=== PATIENT | female | born 1950 | race Caucasian/White ===

== ENCOUNTER 2022-09-07 12:35 | Outpatient (CLI) | payer MEDICARE, SELFPAY ==
[2022-09-07 09:26] LABS: Cholesterol* 134 mg/dL (90-199)
[2022-09-07 09:27] LABS: HDL Cholesterol* 63 mg/dL (>=50); LDL Cholesterol Calculated 58 mg/dL (<100); Triglycerides* 67 mg/dL (40-149)
== END 2022-09-07 12:36 | disposition home or self-care (01) ==
PROVIDERS: PCP Family Medicine; Visit Provider Family Medicine
DX: E78.5 Hyperlipidemia, unspecified (principal)
CPT/HCPCS: 80061

== ENCOUNTER 2022-12-05 15:28 | Outpatient (CLI) | payer MEDICARE, SELFPAY | END 2022-12-05 15:29 | disposition home or self-care (01) | LOC: LONREF 12-07 10:39 | PROVIDERS: PCP Family Medicine; Visit Provider Family Medicine | DX: R30.0 Dysuria (principal); N39.0 Urinary tract infection, site not specified | CPT/HCPCS: 87086; 87186 ==

== ENCOUNTER 2023-01-11 07:50 | Outpatient (CLI) | payer MEDICARE, SELFPAY ==
[2023-01-11 17:46] LABS: Chloride* 107 mmol/L (96-114); Sodium* 142 mmol/L (135-149)
[2023-01-11 17:49] LABS: Blood Urea Nitrogen* 17 mg/dL (7-30); Carbon Dioxide* 31 mmol/L (20-32); Cholesterol* 145 mg/dL (90-199); Creatinine* 0.5 mg/dL (0.5-1.5); Estimated Glomerular Filt Rate 100 ml/min
[2023-01-11 17:50] LABS: Calcium* 9.7 mg/dL (8.4-10.6); Glucose* 87 mg/dL (60-115); HDL Cholesterol* 72 mg/dL (>=50); LDL Cholesterol Calculated 58 mg/dL (<100); Triglycerides* 76 mg/dL (40-149)
[2023-01-11 21:49] LABS: Potassium* 3.6 mmol/L (3.6-5.1)
== END 2023-01-11 07:51 | disposition home or self-care (01) ==
PROVIDERS: PCP Family Medicine; Visit Provider Family Medicine
DX: Z01.818 Encounter for other preprocedural examination (principal); E78.5 Hyperlipidemia, unspecified; Z13.29 Encounter for screening for other suspected endocrine disorder; I10 Essential (primary) hypertension; E66.9 Obesity, unspecified
CPT/HCPCS: 80048; 80061; 84443

== ENCOUNTER 2023-01-30 12:18 | Outpatient (CLI) | payer MEDICARE, SELFPAY ==
--- NOTE | 2023-01-30 12:35 | W.ANESCHARGE ---
Anesthesia Charges Start Date/Time Anesthesia Start Date: 01/30/23 Anesthesia Start Time: 13:02 Stop Date/Time Anesthesia Stop Date: 01/30/23 Anesthesia Stop Time: 13:30 Summary Extremes of Age - Over 70 or under 1: MDA
--- NOTE | 2023-01-30 13:34 | W.ANESCHARGE ---
Anesthesia Charges Start Date/Time Anesthesia Start Date: 01/30/23 Anesthesia Start Time: 13:02 Stop Date/Time Anesthesia Stop Date: 01/30/23 Anesthesia Stop Time: 13:30
== END 2023-01-30 12:19 | disposition home or self-care (01) ==
LOC: OP CLINIC 12:19
PROVIDERS: PCP Family Medicine; Visit Provider Surgery
DX: Z12.11 Encounter for screening for malignant neoplasm of colon (principal); K57.30 Diverticulosis of large intestine without perforation or abscess without bleeding; Z86.010 Personal history of colon polyps
CPT/HCPCS: 45385; 811; 812; 99100; J2704

== ENCOUNTER 2023-03-14 17:42 | Outpatient (CLI) | payer MEDICARE, SELFPAY | END 2023-03-14 17:43 | disposition home or self-care (01) | LOC: AMB 03-16 11:49 | PROVIDERS: PCP Family Medicine; Visit Provider Family Medicine | DX: S39.92XA Unspecified injury of lower back, initial encounter (principal); W01.0XXA Fall on same level from slipping, tripping and stumbling without subsequent striking against object, initial encounter; Y92.096 Garden or yard of other non-institutional residence as the place of occurrence of the external cause | CPT/HCPCS: A0425; A0427 ==

== ENCOUNTER 2023-03-14 18:13 | Emergency (ER) | payer MEDICARE, SELFPAY ==
[2023-03-14 18:23] VITALS: BP 157/90; PULSE 82; RESP 16; TEMP 36.6; O2SAT 96; BMI 31.8
--- NOTE | 2023-03-14 18:28 | ED.GENADULT ---
HPI - General Adult General Time Seen by Provider: 18:30 Date Seen: 03/14/23 Chief complaint: Fall/Minor Trauma Stated complaint: Fall Time Seen by Provider: 03/14/23 18:15 Source: patient Mode of arrival: EMS History of Present Illness HPI narrative: Asmita is a 72-year-old female past medical history includes hypertension, asthma, COPD, depression, status post spinal surgery, [facility] for scoliosis presents emerged department by EMS with a fall. Just prior to arrival patient was walking and she tripped over a down spout, she usually uses a walker and did not, she said she walked with her walker this morning, she ended up landing on her left knee both of her elbows, in a superman position, she denies any head injury or loss consciousness. She said she kept her head up. She denies any neck pain, she complains mostly of lower back pain, no popping sensation, she had no incontinence or retention of bowels or urine, pain is lower lumbar area radiates across her back, no radiation down her legs, she denies any paresthesia or weakness in lower extremities. Patient states she had been doing well prior to the fall. She was concerned because she has had back surgery 50 years ago wanted make sure that everything was stable. She received 50 mcg fentanyl IV per EMS. Related Data Home Medications Medication Instructions Recorded Confirmed albuterol sulfate 90 mcg/actuation 2 puff inhalation QID PRN 07/06/22 03/14/23 aerosol inhaler (ProAir HFA) aspirin 81 mg tablet,delayed 81 mg PO QDAY 07/06/22 01/11/23 release (Adult Aspirin Regimen) budesonide-formoterol HFA 160 2 puff inhalation BID 07/06/22 03/14/23 mcg-4.5 mcg/actuation aerosol inhaler (Symbicort) ipratropium 0.5 mg-albuterol 3 mg 3 ml inhalation QID PRN 07/06/22 03/14/23 (2.5 mg base)/3 mL nebulization soln montelukast 10 mg tablet 10 mg PO QPM 07/06/22 03/14/23 (Singulair) calcium carbonate 600 mg calcium 600 mg PO BID 08/09/22 01/11/23 (1,500 mg) tablet multivitamin (Multiple Vitamins 1 tab PO QDAY 08/09/22 01/11/23 tablet) Previous Rx's Medication Instructions Recorded rosuvastatin 5 mg tablet 5 mg PO QDAY #90 tabs 09/13/22 gabapentin 300 mg capsule 600 mg PO TID #180 caps 12/26/22 tramadol 50 mg tablet See Rx Instructions PO QHS PRN 12/26/22 pain #24 tabs hydrochlorothiazide 25 mg tablet See Rx Instructions .Route 01/02/23 .COMPLEX #90 tabs peg 3350-electrolytes 236 240 ml PO Q10M #4,000 mL 01/04/23 gram-22.74 gram-6.74 gram-5.86 gram solution (Golytely) escitalopram oxalate 10 mg tablet 10 mg PO QDAY #30 tabs 01/18/23 (Lexapro) tramadol 50 mg tablet 50 mg PO Q6-8H 3 days #12 tabs 03/14/23 Allergies Allergy/AdvReac Type Severity Reaction Status Date / Time lisinopril Allergy Intermediate Cough Verified 03/14/23 18:34 Bee venom Allergy Intermediate hives and Uncoded 01/11/23 11:02 itching Review of Systems Status of ROS: Reports: 10 or more systems reviewed and unremarkable except as noted in History and below [facility] Medical History Depression (06/25/09) ?F32.A - Depression, unspecified (ICD-10) Pulmonary embolism ?I26.99 - Other pulmonary embolism without acute cor pulmonale (ICD-10) Surgical History (Updated 03/14/23 @ 22:05 by Klaus Barbosa MD) History of endometrial ablation (06/25/09) ?Z98.890 - Other specified postprocedural states (ICD-10) History of surgery on upper extremity (06/25/09) ?Z98.890 - Other specified postprocedural states (ICD-10) History of varicose vein stripping ?Z98.890 - Other specified postprocedural states (ICD-10) Status post cholecystectomy ?Z90.49 - Acquired absence of other specified parts of digestive tract (ICD-10) Status post spinal surgery ?Z98.890 - Other specified postprocedural states (ICD-10) Social History Smoking Status: Never smoker Do you use any of these nicotine containing products: None Second hand tobacco smoke exposure: No How often do you have a drink containing alcohol: never AUDIT-C Alcohol total score: 0 Non-prescribed substance use: denies use Exam Narrative: Exam Narrative: General: Mild distress, laying comfortably. HEENT: Extraocular muscles intact, pupils equal round reactive to light, her head is atraumatic Neck: Nontender cervical spine, full range of motion, supple Lungs: Clear to auscultation bilaterally Heart: Normal sinus rhythm S1-S2 Abdomen: Atraumatic, nontender to palpation all quadrants, bowel sounds present, soft Muscle skeletal: Pelvis stable, internal external rotation of the hips normal, she an abrasion and ecchymosis her left patella, active extension and flexion Right elbow: Superficial linear abrasion, full range of motion extension and flexion. Lower lumbar: Tender to palpation the lower lumbar spine, midline, no step-offs or saddle anesthesia, L4-L5, straight leg raise and crossover 20? negative bilaterally, she has +5 strength lower extremities, CMS intact Neuro: GCS 15, alert awake and oriented x3 Const: Vital Signs, click to edit/add: Vital Signs - 24 hr 03/14/23 18:23 03/14/23 20:29 03/14/23 21:00 Temperature 97.9 F Pulse Rate [Pulse Oximeter] 82 84 Respiratory Rate 16 14 Blood Pressure [Ri ght Upper Arm] 157/90 H 156/95 H Pulse Oximetry 96 98 95 Oxygen Delivery Me thod Room Air Nasal Cannula Oxygen Flow Rate 2 Course Course Hospital Course: 6:40 PM: AIDET performed. Vitals are stable at this time, workup will include IV peripheral, 50 mcg fentanyl IV for pain, will obtain CT lumbar spine without contrast, XR left knee three views, XR left elbow three views. Patient was in agreement. Differential include but not limited to fracture, sprain, contusion, dislocation, vascular damage nerve damage ligament damage tendon damage, as well as life-threatening such as cauda equina epidural abscess. Other considerations are radiculopathy, muscle spasm lumbar fracture as well as all etiologies. Patient denies saddle anesthesia bowel or bladder incontinence or lower extremity weakness. Reevaluation(s) Reevaluation #1: Patient still having pain, additional Dilaudid 0.5 mg IV. XR knee left 3 views: FINDINGS: There is no evidence of acute fracture or dislocation. Moderate medial joint space narrowing with small osteophytes. Small patellofemoral compartment osteophytes. No knee joint effusion. IMPRESSION: No evidence of acute fracture. No knee joint effusion. Dictated by Disha Wetzel MD @ 03/14/2023 7:53:[address] lumbar spine without IV contrast: FINDINGS: Thoracolumbar spinal fusion and coupled iliac screws. Posterior rods with left L2 and bilateral L3, L4, and L5 pedicle screws. L1-L2 and L2-L3 intervertebral spacers. Hardware appears intact. Mature posterior bone graft. Levoconvex curvature of the lumbar spine. No spondylolisthesis. No acute fracture. Left L5-S1 pseudoarticulation. Prevertebral soft tissues and visualized retroperitoneum are unremarkable. Status post cholecystectomy. IMPRESSION: No acute fracture or traumatic subluxation of the lumbar spine. XR left elbow 3 views: MPRESSIONS: 1. There is a nondisplaced intra-articular fracture present in the radial head. 2. A small elbow effusion is present, likely due to hemarthrosis. Patient to be placed in a shoulder sling, she was able to ambulate to and from the bathroom with a walker, pain has been controlled, discussed admitting for observation with PT/OT evaluation or discharge home with close follow-up with primary, patient wishes to be discharged home, patient has been on tramadol in the past, will write her a prescription to use 50-100 mg every 4-6 hours for breakthrough pain, she needs to follow up with her primary care provider over the next 7-10 days. Return precautions given. Time: 20:10 Vital Signs Vital signs: Initial Vital Signs Temperature 97.9 F 03/14/23 18:23 Temperature Source Temporal Artery Scan 03/14/23 18:23 Pulse Rate 82 03/14/23 18:23 Respiratory Rate 16 03/14/23 18:23 Blood Pressure 157/90 H 03/14/23 18:23 Blood Pressure Mean 112 H 03/14/23 18:23 Blood Pressure Position Supine 03/14/23 18:23 Pulse Oximetry 96 03/14/23 18:23 Oxygen Delivery Method Room Air 03/14/23 18:23 Vital Signs Temperature 97.9 F 03/14/23 18:23 Pulse Rate 82 03/14/23 18:23 Respiratory Rate 16 03/14/23 18:23 Blood Pressure 157/90 H 03/14/23 18:23 Pulse Oximetry 96 03/14/23 18:23 Oxygen Delivery Method Room Air 03/14/23 18:23 Temperature 97.9 F 03/14/23 18:23 Pulse Rate 84 03/14/23 20:29 Respiratory Rate 14 03/14/23 20:29 Blood Pressure 156/95 H 03/14/23 20:29 Pulse Oximetry 95 03/14/23 21:00 Oxygen Delivery Method Nasal Cannula 03/14/23 21:00 Oxygen Flow Rate 2 03/14/23 21:00 Discharge Plan Discharge Clinical Impression: Closed fracture of radial head, Lower back injury, Fall from standing, H/O Spinal surgery Patient Disposition: Home, Self-Care Condition: Improved Instructions: Elbow Fracture (ED), Back Pain (ED), Fall Prevention (ED) Additional Instructions: To take 1000 mg Tylenol every 6 hours for pain, for breakthrough pain, Tramadol 50 mg for breakthrough pain if needed. To follow up with Dr. Arzate in the next 3-5 days for ED follow up and recheck. Activity Level: Activity as Tolerated Prescriptions: New tramadol 50 mg tablet 50 mg PO Q6-8H 3 Days Qty: 12 0RF No Action multivitamin [Multiple Vitamins] Tablet 1 tab PO QDAY calcium carbonate 600 mg calcium (1,500 mg) tablet 600 mg PO BID aspirin [Adult Aspirin Regimen] 81 mg tablet,delayed release (DR/EC) 81 mg PO QDAY budesonide-formoterol [Symbicort] 160-4.5 mcg/actuation HFA aerosol inhaler 2 puff inhalation BID ipratropium-albuterol 0.5 mg-3 mg(2.5 mg base)/3 mL solution for nebulization 3 ml inhalation QID PRN montelukast [Singulair] 10 mg tablet 10 mg PO QPM albuterol sulfate [ProAir HFA] 90 mcg/actuation HFA aerosol inhaler 2 puff inhalation QID PRN rosuvastatin 5 mg tablet 5 mg PO QDAY Qty: 90 3RF tramadol 50 mg tablet See Rx Instructions PO QHS PRN (Reason: pain) Qty: 24 0RF Rx Instructions: 50-100 mg orally every day at bedtime PRN; gabapentin 300 mg capsule 600 mg PO TID Qty: 180 11RF hydrochlorothiazide 25 mg tablet See Rx Instructions .ROUTE .COMPLEX Qty: 90 3RF Dose Instruction: TAKE ONE TABLET BY MOUTH ONCE DAILY Rx Instructions: TAKE ONE TABLET BY MOUTH ONCE DAILY peg 3350-electrolytes [Golytely] 236-22.74-6.74 -5.86 gram recon soln 240 ml PO Q10M Qty: 4000 0RF Rx Instructions: until fecal effluent is clear escitalopram oxalate [Lexapro] 10 mg tablet 10 mg PO QDAY Qty: 30 5RF Rx Instructions: Take 1/2 tablet (5mg) daily for 2 days, then take 1 tablet daily Follow Up/Referrals: Waldemar Arzate MD [Primary Care Provider] - Stand Alone Forms: [employer] Info Instructions
--- NOTE | 2023-03-14 18:42 | CRLHL7_ITS ---
For Patients: As a result of the Cures Act, medical imaging exams and procedure reports are released immediately into your electronic medical record. You may view this report before your referring provider. If you have questions, please contact your health care provider. INDICATION: Fall. Knee pain. TECHNIQUE: Three views of the left knee. COMPARISON: None. FINDINGS: There is no evidence of acute fracture or dislocation. Moderate medial joint space narrowing with small osteophytes. Small patellofemoral compartment osteophytes. No knee joint effusion. IMPRESSION: No evidence of acute fracture. No knee joint effusion. Dictated by Disha Wetzel MD @ 03/14/2023 7:53:15 PM (Electronically Signed)
--- NOTE | 2023-03-14 18:42 | CRLHL7_ITS ---
For Patients: As a result of the Century Cures Act, medical imaging exams and procedure reports are released immediately into your electronic medical record. You may view this report before your referring provider. If you have questions, please contact your health care provider. INDICATION: Trauma, fall. TECHNIQUE: CT lumbar spine without contrast. COMPARISON: 10/03/2020. FINDINGS: Thoracolumbar spinal fusion and coupled iliac screws. Posterior rods with left L2 and bilateral L3, L4, and L5 pedicle screws. L1-L2 and L2-L3 intervertebral spacers. Hardware appears intact. Mature posterior bone graft. Levoconvex curvature of the lumbar spine. No spondylolisthesis. No acute fracture. Left L5-S1 pseudoarticulation. Prevertebral soft tissues and visualized retroperitoneum are unremarkable. Status post cholecystectomy. IMPRESSION: No acute fracture or traumatic subluxation of the lumbar spine. Please note that all CT scans at this facility use dose modulation, iterative reconstruction, and/or weight-based dosing when appropriate to reduce radiation dose to as low as reasonably achievable. Dictated by Marcelo Moran MD @ 03/14/2023 8:21:30 PM (Electronically Signed)
[2023-03-14] MEDS: fentaNYL 100 MCG/2 ML inj 50 MCG IVP (18:53)
[2023-03-14] MEDS: HYDROmorphone 0.5 mg/0.5 ml inj IVP (20:14)
[2023-03-14 20:29] VITALS: BP 156/95; PULSE 84; RESP 14; O2SAT 98
--- NOTE | 2023-03-14 20:30 | ED.NURSE ---
O2 dropped to 88-89% following Dilaudid administration. Patient does state pain relief and nausea has also gone. Oxygen applied at 2L NC.
--- NOTE | 2023-03-14 20:59 | CRLHL7_ITS ---
For Patients: As a result of the Cures Act, medical imaging exams and procedure reports are released immediately into your electronic medical record. You may view this report before your referring provider. If you have questions, please contact your health care provider. INDICATION: Elbow injury from fall TECHNIQUE: Elbow radiograph 3 views left COMPARISON: None FINDINGS: Bone: There is a nondisplaced intra-articular fracture present in the radial head. Joint: The elbow joint is unremarkable. A small elbow effusion is present, likely due to hemarthrosis. Soft tissue: Unremarkable. No radiopaque foreign bodies are seen. IMPRESSIONS: 1. There is a nondisplaced intra-articular fracture present in the radial head. 2. A small elbow effusion is present, likely due to hemarthrosis. Dictated by Leoncio Schwab MD @ 03/14/2023 9:31:00 PM Dictated by: Leoncio Schwab MD @ 03/14/2023 21:31:08 (Electronically Signed)
[2023-03-14 21:00] VITALS: O2SAT 95
--- NOTE | 2023-03-14 21:02 | ED.NURSE ---
pt able to get up with minimal 1a, used walker to bathroom and back ind, states she feels better and feels safe to go home, MD Barbosa updated.
== END 2023-03-14 23:10 | disposition home or self-care (01) ==
PROVIDERS: Emergency Provider Student in an Organized Health Care Education/Training Program; PCP Family Medicine
DX: S52.125A Nondisplaced fracture of head of left radius, initial encounter for closed fracture (principal); W01.0XXA Fall on same level from slipping, tripping and stumbling without subsequent striking against object, initial encounter; M54.50 Low back pain, unspecified
CPT/HCPCS: 72131; 73080; 73562; 96374; 96375; 99283; 99284; J1170; J3010

== ENCOUNTER 2023-03-21 11:39 | Emergency (ER) | payer MEDICARE, SELFPAY ==
[2023-03-21 11:43] VITALS: BP 151/81; PULSE 59; RESP 18; TEMP 36.2; O2SAT 96; BMI 31.8
--- NOTE | 2023-03-21 12:03 | CRLHL7_ITS ---
For Patients: As a result of the Cures Act, medical imaging exams and procedure reports are released immediately into your electronic medical record. You may view this report before your referring provider. If you have questions, please contact your health care provider. INDICATION: Swelling after a fall last week COMPARISON: none TECHNIQUE: A compression venous ultrasound exam was performed of both lower extremities using woods scale imaging, color Doppler and spectral Doppler analysis. FINDINGS: Sonographic imaging of the lower extremities demonstrates normal compressibility and color Doppler venous blood flow within the common femoral, deep femoral, and proximal greater saphenous veins. Within the thighs the femoral veins are patent and compressible. At a lower level the popliteal and posterior tibial veins also show normal compressibility and color Doppler venous blood flow. IMPRESSION: Normal venous ultrasound exam. No evidence of deep vein thrombosis within either the left or right lower extremity. Dictated by Fracisco Cid MD @ 03/21/2023 12:56:40 PM (Electronically Signed)
--- NOTE | 2023-03-21 12:04 | ED.GENADULT ---
HPI - General Adult General Chief complaint: Lower Extremity Swelling Stated complaint: Fall, swollen legs Time Seen by Provider: 03/21/23 11:40 History of Present Illness HPI narrative: This 72-year-old female comes in reporting bilateral lower extremity swelling in the last day or so. She states that she fell a week ago and was evaluated for this. She has been taking Zanaflex as needed since then. She does have pain in her low back which is acute on chronic. She does have history of asthma symptoms and did feel some shortness of breath. She does not report any chest pain. She also states that she had a small blood clot during a COVID infection. She is not currently on any anticoagulants. She does have some bruising around her left knee as the fall included landing on this knee. She reports bilateral lower extremity swelling. Related Data Home Medications Medication Instructions Recorded Confirmed albuterol sulfate 90 mcg/actuation 2 puff inhalation QID PRN 07/06/22 03/17/23 aerosol inhaler (ProAir HFA) budesonide-formoterol HFA 160 2 puff inhalation BID 07/06/22 03/17/23 mcg-4.5 mcg/actuation aerosol inhaler (Symbicort) ipratropium 0.5 mg-albuterol 3 mg 3 ml inhalation QID PRN 07/06/22 03/17/23 (2.5 mg base)/3 mL nebulization soln montelukast 10 mg tablet 10 mg PO QPM 07/06/22 03/17/23 (Singulair) calcium carbonate 600 mg calcium 600 mg PO BID 08/09/22 03/17/23 (1,500 mg) tablet multivitamin (Multiple Vitamins 1 tab PO QDAY 08/09/22 03/17/23 tablet) gabapentin 300 mg capsule 500 mg PO TID 03/17/23 03/17/23 tizanidine 4 mg tablet 4 mg PO TID PRN 03/17/23 03/17/23 Previous Rx's Medication Instructions Recorded rosuvastatin 5 mg tablet 5 mg PO QDAY #90 tabs 09/13/22 hydrochlorothiazide 25 mg tablet See Rx Instructions .Route 01/02/23 .COMPLEX #90 tabs peg 3350-electrolytes 236 240 ml PO Q10M #4,000 mL 01/04/23 gram-22.74 gram-6.74 gram-5.86 gram solution (Golytely) escitalopram oxalate 10 mg tablet 10 mg PO QDAY #30 tabs 01/18/23 (Lexapro) tramadol 50 mg tablet 50 mg PO Q6-8H 3 days #12 tabs 03/14/23 furosemide 20 mg tablet (Lasix) 20 mg PO DAILY #7 tabs 03/21/23 ketorolac 10 mg tablet 10 mg PO TID 5 days #15 tabs 03/21/23 Allergies Allergy/AdvReac Type Severity Reaction Status Date / Time lisinopril Allergy Intermediate Cough Verified 03/14/23 18:34 Bee venom Allergy Intermediate hives and Uncoded 01/11/23 11:02 itching Review of Systems Status of ROS: Reports: 10 or more systems reviewed and unremarkable except as noted in History and below Narrative: Constitutional: No fevers, no weight gain or loss. Eyes: No discharge. No vision changes. HENT: No congestion, no sore throat, no ear pain. Cardiovascular: No chest pain, no palpitations. Respiratory: No shortness of breath, no wheezes, no cough. Gastrointestinal: No abdominal pain, no vomiting, no diarrhea. Genitourinary: No dysuria, no hematuria. Musculoskeletal: Normal range of motion. Low back pain. Bilateral lower extremity swelling. Skin: No rashes, no pruritis. Neurological: No dizziness, weakness, sensory change, speech change. Endo/Heme/Allergies: No bruising or bleeding. No polydipsia. Pysch: no suicidality, no anxiety, no insomnia. All other systems reviewed and are negative. [facility] Medical History Depression (06/25/09) ?F32.A - Depression, unspecified (ICD-10) Pulmonary embolism ?I26.99 - Other pulmonary embolism without acute cor pulmonale (ICD-10) Surgical History History of endometrial ablation (06/25/09) ?Z98.890 - Other specified postprocedural states (ICD-10) History of surgery on upper extremity (06/25/09) ?Z98.890 - Other specified postprocedural states (ICD-10) History of varicose vein stripping ?Z98.890 - Other specified postprocedural states (ICD-10) Status post cholecystectomy ?Z90.49 - Acquired absence of other specified parts of digestive tract (ICD-10) Status post spinal surgery ?Z98.890 - Other specified postprocedural states (ICD-10) Social History Smoking Status: Never smoker Do you use any of these nicotine containing products: None Second hand tobacco smoke exposure: No How often do you have a drink containing alcohol: never AUDIT-C Alcohol total score: 0 Non-prescribed substance use: denies use Exam Narrative: Exam Narrative: Constitutional: Well-developed, well-nourished, no acute distress. HEENT: Normocephalic, atraumatic. Neck: Normal range of motion. Nontender. Supple. Heart: Regular. No murmurs. Normal rate. Intact distal pulses. Lungs: Clear to auscultation. No chest discomfort. No wheezes, rhonchi, or rales. Abdomen: Normal bowel sounds. Nontender. No rebound tenderness. Genitalia: Deferred. Back: No midline tenderness. Acute on chronic low back pain. Extremities: Normal range of motion. Mild bruising around the left knee from an injury about a week ago. Mild to moderate lower extremity edema bilaterally. Skin: Intact. No rash. Warm. No erythema or pallor. Neurologic: No altered sensation. No weakness. Alert and oriented. Psychiatric: No suicidality. No anxiety or depression. No insomnia. Nursing notes and vitals signs are reviewed. Const: Vital Signs, click to edit/add: Vital Signs - 24 hr 03/21/23 11:43 03/21/23 13:00 Temperature 97.1 F L Pulse Rate [Right Pulse Oximeter] 59 L 65 Respiratory Rate 18 18 Blood Pressure [Ri ght Upper Arm] 151/81 H 150/84 H Pulse Oximetry 96 99 Oxygen Delivery Me thod Room Air Course Vital Signs Vital signs: Initial Vital Signs Temperature 97.1 F L 03/21/23 11:43 Temperature Source Temporal Artery Scan 03/21/23 11:43 Pulse Rate 59 L 03/21/23 11:43 Respiratory Rate 18 03/21/23 11:43 Blood Pressure 151/81 H 03/21/23 11:43 Blood Pressure Mean 104 03/21/23 11:43 Blood Pressure Position Sitting 03/21/23 11:43 Pulse Oximetry 96 03/21/23 11:43 Oxygen Delivery Method Room Air 03/21/23 11:43 Vital Signs Temperature 97.1 F L 03/21/23 11:43 Pulse Rate 59 L 03/21/23 11:43 Respiratory Rate 18 03/21/23 11:43 Blood Pressure 151/81 H 03/21/23 11:43 Pulse Oximetry 96 03/21/23 11:43 Oxygen Delivery Method Room Air 03/21/23 11:43 Temperature 97.1 F L 03/21/23 11:43 Pulse Rate 65 03/21/23 13:00 Respiratory Rate 18 03/21/23 13:00 Blood Pressure 150/84 H 03/21/23 13:00 Pulse Oximetry 99 03/21/23 13:00 Oxygen Delivery Method Room Air 03/21/23 11:43 Medical Decision Making MDM Narrative Medical decision making narrative: This patient comes in with low back pain that is acute on chronic related to a fall last week. She now reports some bilateral lower extremity swelling. She does have a history of asthma and did have some shortness of breath. She does arrive with normal vital signs. Her blood pressures are a bit elevated. Ultrasound of the lower extremities shows no evidence of deep venous thrombosis. Lab results also returned with reassuring findings. I did order a B type natriuretic peptide whose results are not yet available. The patient is okay to return home. She did receive a prescription for Toradol and a few tablets of Lasix. She does have follow-up appointment with her primary physician in the near future. Lab Data Labs: Lab Results 03/21/23 Range/Units 12:23 WBC 5.24 (4.50-11.00) K/uL RBC 3.97 L (4.00-5.20) m/uL Hgb 12.0 (12.0-16.0) gm/dL Hct 37.5 (33.0-51.0) % MCV 95 (80-100) fL MCH 30 (26-34) pg MCHC 32 (32-36) gm/dL RDW Coeff of Nieves 14.0 (11.5-15.5) % Plt Count 202 (140-440) K/uL Neut % (Auto) 61.8 (42.0-72.0) % Lymph % (Auto) 25.6 (20-44) % Crane % (Auto) 9.9 (0.0-11.0) % Eos % (Auto) 1.7 (0.0-7.0) % Baso % (Auto) 0.8 (0.0-3.0) % Neut # (Auto) 3.24 (1.7-7.0) K/uL Lymph # (Auto) 1.34 (0.90-2.90) K/uL Crane # (Auto) 0.50 (0.00-0.90) K/UL Eos # (Auto) 0.09 (0.00-0.50) K/uL Baso # (Auto) 0.04 (0.00-0.30) K/uL Sodium 139 (135-149) mmol/L Potassium 4.1 (3.6-5.1) mmol/L Chloride 106 (96-114) mmol/L Carbon Dioxide 29 (20-32) mmol/L BUN 17 (7-30) mg/dL Creatinine 0.5 (0.5-1.5) mg/dL Estimated Creat Clear 43.91 Estimated GFR 100 ml/min Glucose 100 (60-115) mg/dL Calcium 9.7 (8.4-10.6) mg/dL Imaging Data Venous US: Radiologist's impression: Normal venous ultrasound exam. No evidence of deep vein thrombosis within either the left or right lower extremity. Discharge Plan Discharge Clinical Impression: Back pain, Pedal edema Patient Disposition: Home, Self-Care Condition: Stable Additional Instructions: Take medications as needed and indicated. Follow up with MD or return if worsening symptoms happen. Prescriptions: New ketorolac 10 mg tablet 10 mg PO TID 5 Days Qty: 15 0RF furosemide [Lasix] 20 mg tablet 20 mg PO DAILY Qty: 7 2RF No Action multivitamin [Multiple Vitamins] Tablet 1 tab PO QDAY calcium carbonate 600 mg calcium (1,500 mg) tablet 600 mg PO BID gabapentin 300 mg capsule 500 mg PO TID tizanidine 4 mg tablet 4 mg PO TID PRN tramadol 50 mg tablet 50 mg PO Q6-8H 3 Days Qty: 12 0RF budesonide-formoterol [Symbicort] 160-4.5 mcg/actuation HFA aerosol inhaler 2 puff inhalation BID ipratropium-albuterol 0.5 mg-3 mg(2.5 mg base)/3 mL solution for nebulization 3 ml inhalation QID PRN montelukast [Singulair] 10 mg tablet 10 mg PO QPM albuterol sulfate [ProAir HFA] 90 mcg/actuation HFA aerosol inhaler 2 puff inhalation QID PRN rosuvastatin 5 mg tablet 5 mg PO QDAY Qty: 90 3RF hydrochlorothiazide 25 mg tablet See Rx Instructions .ROUTE .COMPLEX Qty: 90 3RF Dose Instruction: TAKE ONE TABLET BY MOUTH ONCE DAILY Rx Instructions: TAKE ONE TABLET BY MOUTH ONCE DAILY peg 3350-electrolytes [Golytely] 236-22.74-6.74 -5.86 gram recon soln 240 ml PO Q10M Qty: 4000 0RF Rx Instructions: until fecal effluent is clear escitalopram oxalate [Lexapro] 10 mg tablet 10 mg PO QDAY Qty: 30 5RF Rx Instructions: Take 1/2 tablet (5mg) daily for 2 days, then take 1 tablet daily Follow Up/Referrals: Waldemar Arzate MD [Primary Care Provider] - Stand Alone Forms: [employer] Info Instructions
[2023-03-21 12:38] LABS: Basophils Absolute Auto 0.04 K/uL (0.00-0.30); Basophils Percent Auto 0.8 % (0.0-3.0); Eosinophils Absolute Auto 0.09 K/uL (0.00-0.50); Eosinophils Percent Auto 1.7 % (0.0-7.0); Hematocrit 37.5 % (33.0-51.0); Immature Granulocytes Abs Auto 0.01 K/uL (0.00-0.30); Immature Granulocytes Pct Auto 0.2 %; Lymphocytes Absolute Auto 1.34 K/uL (0.90-2.90); Lymphocytes Percent Auto 25.6 % (20-44); Mean Corpuscular HGB Conc 32 gm/dL (32-36); Mean Corpuscular Hemoglobin 30 pg (26-34); Mean Corpuscular Volume 95 fL (80-100); Monocytes Percent Auto 9.9 % (0.0-11.0); Neutrophils Absolute Auto 3.24 K/uL (1.7-7.0); Neutrophils Percent Auto 61.8 % (42.0-72.0); Platelet Count* 202 K/uL (140-440); Red Blood Count 3.97 m/uL (4.00-5.20); White Blood Count* 5.24 K/uL (4.50-11.00)
[2023-03-21 12:43] LABS: Slide Review Reflex No
[2023-03-21 12:48] LABS: Chloride* 106 mmol/L (96-114); Potassium* 4.1 mmol/L (3.6-5.1); Sodium* 139 mmol/L (135-149)
[2023-03-21 12:51] LABS: Blood Urea Nitrogen* 17 mg/dL (7-30); Carbon Dioxide* 29 mmol/L (20-32); Creatinine* 0.5 mg/dL (0.5-1.5); Est. Creatinine Clearance* 43.91; Estimated Glomerular Filt Rate 100 ml/min
[2023-03-21 12:52] LABS: Calcium* 9.7 mg/dL (8.4-10.6); Glucose* 100 mg/dL (60-115)
--- NOTE | 2023-03-21 12:52 | ED.NURSE ---
pt sitting up on edgre of bed due to back pain. up to br independent with cane.
[2023-03-21 13:00] VITALS: BP 150/84; PULSE 65; RESP 18; O2SAT 99
[2023-03-21 14:42] LABS: NT Pro B Type NatriureticPept* 49 pg/mL
== END 2023-03-21 14:20 | disposition home or self-care (01) ==
LOC: ED 14:04 → ED2 14:06
PROVIDERS: Emergency Provider Emergency Medicine Emergency Medical Services; PCP Family Medicine
DX: M54.9 Dorsalgia, unspecified (principal); R60.9 Edema, unspecified
CPT/HCPCS: 36415; 80048; 83880; 85025; 93970; 99284

== ENCOUNTER 2023-09-14 14:52 | Outpatient (CLI) | payer MEDICARE, SELFPAY ==
--- NOTE | 2023-09-14 14:00 | CRLHL7_ITS ---
For Patients: As a result of the Century Cures Act, medical imaging exams and procedure reports are released immediately into your electronic medical record. You may view this report before your referring provider. If you have questions, please contact your health care provider. DXA BONE MINERAL DENSITY STUDY Reason for exam: Screening. Current height (in): 64. Weight (lb): 189. Menopause age: 48. Ethnicity: White. 1. Have you had a previous hip or vertebral fracture? No. 2. Have you had any fractures during your adult life which did not result from significant trauma (e.g., auto accident)? Yes. 3. Did either of your parents have a hip fracture? Yes. 4. Do you smoke? No. 5. Have you ever taken Glucocorticoids? No. 6. Do you have rheumatoid arthritis? No. 7. Do you have secondary osteoporosis? No. 8. Do you drink 3 or more alcoholic drinks per day? No. 9. Are you being treated for osteoporosis? No. 10. Have you ever taken any of the following medications: Actonel, Evista, Fosamax, Miacalcin, Reclast, Boniva, Forteo, HRT (i.e., estrogen/hormone therapy), Protelos, Prolia, Vitamin D, Calcium, other ??? please specify. ANSWER: Yes, calcium. 11. Do you have any of the following medical conditions: Anorexia or bulimia, asthma or emphysema, end stage renal disease, hyperparathyroidism, any seizure disorders, cancer, inflammatory bowel diseases, hysterectomy, other ??? please specify. ANSWER: Yes, asthma or emphysema. 12. What was your maximum height (inches)? 66. 13. Do you perform weight bearing exercise regularly? No. 14. Do you regularly consume dairy products? Yes. 15. Do you drink caffeinated beverages? No. If female: 16. At what age did your period start? 13. 17. Are you premenopausal? No. 18. How many full-term pregnancies have you had? 4. 19. Have you ever missed your period for more than 6 months in a row (not including or menopause)? No. TECHNIQUE: Bone mineral density study was performed using the [employer]. FINDINGS: The results of the study expressed as bone mineral density (BMD) are as follows: Neck Left: BMD: 0.742 g/cm2. T-score: -1.0. Z-score: 1.0 Right: BMD: 0.775 g/cm2. T-score: -0.7. Z-score: 1.3 Total Left: BMD: 0.951 g/cm2. T-score: 0.1. Z-score: 1.7 Right: BMD: 0.901 g/cm2. T-score: -0.3. Z-score: 1.3 Radius Left 33%: BMD: 0.607 g/cm2. T-score: -1.4. Z-score: 0.9 IMPRESSION: Osteopenia. *Comparison exams done prior to 04/2020 were performed on different unit, [facility]. COMPARISON: Compared with scan of 07/18/2019, the bone mineral density has decreased by 0.7 percent at the hip. Fracisco Cid M.D. Diagnostic Radiologist [email or web address] MELISSA/[email or web address] william/Dictated by: Fracisco Cid MD @ 09/15/2023 6:27:00 AM (Electronically Signed)
== END 2023-09-14 14:53 | disposition home or self-care (01) ==
LOC: RAD 14:53
PROVIDERS: PCP Family Medicine; Visit Provider Family Medicine
DX: Z13.820 Encounter for screening for osteoporosis (principal); M85.89 Other specified disorders of bone density and structure, multiple sites
CPT/HCPCS: 77080

== ENCOUNTER 2023-09-19 19:28 | Outpatient (CLI) | payer MEDICARE, SELFPAY ==
--- NOTE | 2023-09-26 08:19 | W.PM.SLEEP ---
Sleep Study Details Details Interpreting Provider: Rah Date of Sleep Study: 09/19/23 Sleep Study Details: STUDY TYPE:? Home unattended ? BMI:? 31.2 ORDERING PROVIDER:? Rah INDICATION:? Concerns about sleep apnea ? SLEEP SUMMARY:? Monitor time 484.6 minutes RESPIRATORY SUMMARY:? AHI 6.2, supine 6.8, left lateral 10.0, right lateral 3.8 Low oxygen 81 19.9% of study oxygen less than 90% Snoring 1.2% PERIODIC LIMB MOVEMENTS OF SLEEP:? Not recorded during home study CARDIAC:? Range 58-103, mean 73 beats per minute IMPRESSION:? Mild obstructive sleep apnea overall. Significant desaturations. Nearly 20% of the time the patient's oxygen sats below 90%. RECOMMENDATION: Treatment options for the sleep apnea include AutoSet CPAP versus dental appliance versus airway expansion surgery. Once effective therapy is established overnight oximetry should be performed to determine if the patient requires nighttime oxygen and to determine if further cardiopulmonary workup is indicated.
== END 2023-09-19 19:29 | disposition home or self-care (01) ==
PROVIDERS: PCP Family Medicine; Visit Provider Otolaryngology
DX: G47.33 Obstructive sleep apnea (adult) (pediatric) (principal)
CPT/HCPCS: 95806

== ENCOUNTER 2023-10-05 18:20 | Emergency (ER) | payer MEDICARE, SELFPAY ==
[2023-10-05 18:31] VITALS: BP 141/84; PULSE 85; RESP 18; TEMP 36.3; O2SAT 97; BMI 32.1
--- NOTE | 2023-10-05 19:22 | ED_ITS ---
HPI - General Adult General Date Seen: 10/05/23 Chief complaint: Extremity Pain/Injury, Lower Stated complaint: leg pain Time Seen by Provider: 10/05/23 18:53 Source: patient, RN notes reviewed and old records reviewed Mode of arrival: ambulatory Limitations: no limitations History of Present Illness HPI narrative: Patient is a 72-year-old woman who presents for pain control. She has a long history of problems with her back, had Coffman rods many years ago and apparently had a broken kaiser and had surgery for that in 1999. She says she always has back pain to some degree but it is typically manageable. Recently she has been having more problems with sciatic radiation in the right leg. She reports that she has talked to her back surgeon, has had an EMG and saw somebody at a pain clinic for possible spinal stimulator. Her back surgeon apparently thinks the problem may be related to scar tissue. She is our primary doctor last week, she has in the past use tramadol but does not have any at this time, has just been using Tylenol. She notes that the past couple of nights she is not able to get any sleep because when she lays down she gets severe burning pain in her right leg down to her pinky toe. She says that she called her back surgeon today, he gave her the name of the neurosurgeon that he would like her to see for a 2nd opinion on the spinal stimulator, but in the meantime she does not feel like she can continue to just manage with Tylenol. She does not have weakness or true numbness. Has not had fevers, unexpected weight loss etcetera. Related Data Home Medications Medication Instructions Recorded Confirmed albuterol sulfate 90 mcg/actuation 2 puff inhalation QID PRN 07/06/22 09/27/23 aerosol inhaler (ProAir HFA) budesonide-formoterol HFA 160 2 puff inhalation BID 07/06/22 09/27/23 mcg-4.5 mcg/actuation aerosol inhaler (Symbicort) ipratropium 0.5 mg-albuterol 3 mg 3 ml inhalation QID PRN 07/06/22 09/27/23 (2.5 mg base)/3 mL nebulization soln montelukast 10 mg tablet 10 mg PO QPM 07/06/22 09/27/23 (Singulair) calcium carbonate 600 mg calcium 600 mg PO BID 08/09/22 09/27/23 (1,500 mg) tablet multivitamin (Multiple Vitamins 1 tab PO QDAY 08/09/22 09/27/23 tablet) tizanidine 4 mg tablet 4 mg PO TID PRN 03/17/23 09/27/23 aspirin 81 mg tablet,delayed 81 mg PO .THREE TIMES WEEKLY 09/27/23 09/27/23 release (Adult Aspirin Regimen) Previous Rx's Medication Instructions Recorded hydrochlorothiazide 25 mg tablet See Rx Instructions .Route 01/02/23 .COMPLEX #90 tabs escitalopram oxalate 10 mg tablet 10 mg PO QDAY #30 tabs 01/18/23 (Lexapro) ketorolac 10 mg tablet 10 mg PO TID 5 days #15 tabs 03/21/23 methocarbamol 500 mg tablet 500 mg PO TID #30 tabs 03/27/23 tramadol 50 mg tablet 50 mg PO Q6-8H 3 days #30 tabs 04/10/23 gabapentin 300 mg capsule See Rx Instructions PO .ud #240 08/30/23 caps rosuvastatin 5 mg tablet 5 mg PO QDAY #90 tabs 08/30/23 furosemide 20 mg tablet (Lasix) 40 mg (2 x 20 mg) PO DAILY #60 tabs 09/27/23 Allergies Allergy/AdvReac Type Severity Reaction Status Date / Time lisinopril Allergy Intermediate Cough Verified 09/27/23 15:35 Bee venom Allergy Intermediate hives and Uncoded 09/27/23 15:35 itching Review of Systems Status of ROS: Reports: 6 or more systems reviewed and unremarkable except as noted in History and below [facility] Medical History Pulmonary embolism ?I26.99 - Other pulmonary embolism without acute cor pulmonale (ICD-10) Surgical History History of varicose vein stripping ?Z98.890 - Other specified postprocedural states (ICD-10) Status post spinal surgery ?Z98.890 - Other specified postprocedural states (ICD-10) Status post cholecystectomy ?Z90.49 - Acquired absence of other specified parts of digestive tract (ICD- 10) History of surgery on upper extremity (06/25/09) ?Z98.890 - Other specified postprocedural states (ICD-10) History of endometrial ablation (06/25/09) ?Z98.890 - Other specified postprocedural states (ICD-10) Social History Smoking Status: Never smoker Do you use any of these nicotine containing products: None Second hand tobacco smoke exposure: No How often do you have a drink containing alcohol: never AUDIT-C Alcohol total score: 0 Non-prescribed substance use: denies use Exam Narrative: Exam Narrative: Vital signs reviewed In general, alert, nontoxic woman. She walks with a cane. Neurologic: Strength is equal in bilateral lower extremities. Sensation intact to light touch Skin warm dry well perfused. Const: Vital Signs, click to edit/add: Vital Signs - 24 hr 10/05/23 18:31 Temperature 97.3 F L Pulse Rate [Right Pulse Oximeter] 85 Respiratory Rate 18 Blood Pressure [Ri ght Upper Arm] 141/84 H Pulse Oximetry 97 Oxygen Delivery Me thod Room Air Course Course ED Course: I did try to review her on the prescription monitoring database but the database appears to be down. I do not have significant concerns about her in terms of pain medications, looking through clinic records it just does not look like she has had really much in the way of narcotics aside from a tramadol prescription back in March. She has use oxycodone in the past postoperatively in felt it was effective. I am going to give her a small number to use at night, we discussed potential complications of this medication including tolerance and addiction, constipation, dizziness confusion sleepiness etcetera. She will use it with caution. I am also going to put her on some prednisone to see if that provides any relief for her. I have asked her to follow up with a neurosurgeon as recommended. In the meantime, discuss further concerns with Dr. Arzate. Vital Signs Vital signs: Initial Vital Signs Temperature 97.3 F L 10/05/23 18:31 Temperature Source Temporal Artery Scan 10/05/23 18:31 Pulse Rate 85 10/05/23 18:31 Respiratory Rate 18 10/05/23 18:31 Blood Pressure 141/84 H 10/05/23 18:31 Blood Pressure Mean 103 10/05/23 18:31 Blood Pressure Position Sitting 11/16/23 18:31 Pulse Oximetry 97 10/05/23 18:31 Oxygen Delivery Method Room Air 10/05/23 18:31 Vital Signs Temperature 97.3 F L 10/05/23 18:31 Pulse Rate 85 10/05/23 18:31 Respiratory Rate 18 10/05/23 18:31 Blood Pressure 141/84 H 10/05/23 18:31 Pulse Oximetry 97 10/05/23 18:31 Oxygen Delivery Method Room Air 10/05/23 18:31 Temperature 97.3 F L 10/05/23 18:31 Pulse Rate 85 10/05/23 18:31 Respiratory Rate 18 10/05/23 18:31 Blood Pressure 141/84 H 10/05/23 18:31 Pulse Oximetry 97 10/05/23 18:31 Oxygen Delivery Method Room Air 10/05/23 18:31 Discharge Plan Discharge Clinical Impression: Sciatica associated with disorder of lumbar spine Patient Disposition: Home, Self-Care Condition: Stable Instructions: Sciatica (ED) Additional Instructions: Continue your current medications. Add oxycodone if needed for severe uncontrolled pain. Prednisone as follows: 3 tabs daily for 3 days, then 2 tabs daily for 3 days then 1 tab daily for 3 days. Call to schedule follow-up with the neurosurgeon as planned. See Dr. Arzate for ongoing difficulties. Activity Level: No Restrictions Discharge Diet: Regular Prescriptions: No Action multivitamin [Multiple Vitamins] Tablet 1 tab PO QDAY calcium carbonate 600 mg calcium (1,500 mg) tablet 600 mg PO BID tizanidine 4 mg tablet 4 mg PO TID PRN aspirin [Adult Aspirin Regimen] 81 mg tablet,delayed release (DR/EC) 81 mg PO .THREE TIMES WEEKLY furosemide [Lasix] 20 mg tablet 40 mg PO DAILY Qty: 60 3RF ketorolac 10 mg tablet 10 mg PO TID 5 Days Qty: 15 0RF budesonide-formoterol [Symbicort] 160-4.5 mcg/actuation HFA aerosol inhaler 2 puff inhalation BID ipratropium-albuterol 0.5 mg-3 mg(2.5 mg base)/3 mL solution for nebulization 3 ml inhalation QID PRN montelukast [Singulair] 10 mg tablet 10 mg PO QPM albuterol sulfate [ProAir HFA] 90 mcg/actuation HFA aerosol inhaler 2 puff inhalation QID PRN hydrochlorothiazide 25 mg tablet See Rx Instructions .ROUTE .COMPLEX Qty: 90 3RF Dose Instruction: TAKE ONE TABLET BY MOUTH ONCE DAILY Rx Instructions: TAKE ONE TABLET BY MOUTH ONCE DAILY escitalopram oxalate [Lexapro] 10 mg tablet 10 mg PO QDAY Qty: 30 5RF Rx Instructions: Take 1/2 tablet (5mg) daily for 2 days, then take 1 tablet daily methocarbamol 500 mg tablet 500 mg PO TID Qty: 30 2RF tramadol 50 mg tablet 50 mg PO Q6-8H 3 Days Qty: 30 0RF rosuvastatin 5 mg tablet 5 mg PO QDAY Qty: 90 0RF gabapentin 300 mg capsule See Rx Instructions PO .ud Qty: 240 2RF Rx Instructions: 300 mg QAM and QMidday, and 600 mg QHS orally UD; Follow Up/Referrals: Waldemar Arzate MD [Primary Care Provider] - Stand Alone Forms: [facility] Info Instructions
--- OUTSIDE RECORDS SUMMARY | 2023-10-05 19:23 | XMS_ITS | Continuity of Care Document ---
Author Name Unknown Organization [facility] Address [address] [place] [address] Phone Care Team Providers Care Vp Strategic Planning Name Role Phone Abdirahman AMEZCUA, PhD, Jensen Unavailable Unavai lable Allergies, Adverse Reactions, Alerts Substance Reaction Status Criticality BEE STING KIT hives, swelling Active No Informat ion Medications Medication Instructions Dosage Effective Dates (start - stop) Status Comments NORVASC (unknown strength) Not Available - Active QBRELIS (unknown strength) Not Available - Active MONTELUKAST SODIUM (unknown strength) Not Available - Active SYMBICORT (unknown strength) Not Available - Active SPIRIVA HANDIHALER (unknown strength) Not Available - Active MULTIVITAMINS (unknown strength) Not Available - Active CALCIUM CARBONATE/VITAMIN D3 (unknown strength) Not Available - Active PROAIR RESPICLICK (unknown strength) Not Available - Active ATENOLOL (unknown strength) Not Available - No Longer Active Procedures Procedure Date Office/Outpatient Visit,Est, Mod 2017 Office/Outpatient Visit,New, Mod 2016 Advance Directives Directive Yes / No Effective Date File Name No Information Encounters Encounter Description Practice Location Reason(s) For Visit Diagnoses Date Provider Providers Copied on Encounter Office/Outpat ient Visit,Est, Mod [facility], [address], [place], [id number], [place] tel:[phone] [facility] [place] Arthrodesis status Abdirahman Styles. [facility], [address], [place], [address], [place]. tel:[phone] [facility]: [facility] [address] [place], [address]. tel:[phone] Office/Outpat ient Visit,New, Lindy [facility], [address], [place], [id number], [place] tel:[phone] [facility] [place] Other idiopathic scoliosis, thoracic region Abdirahman Styles. [facility], [address], [place], [address], [place]. tel:[phone] Referring Provider: [facility] [address] [place], [address]. tel:[phone] Family History Family Member Type Diagnosis Age At Onset No Information Payers Payer name Insurance type Covered libertarian ID Authoriza tion(s) No Information Social History Type Description Quantity Date Captured Comments Alcohol Use Details Unknown Caffeine Use Details Unknown Tobacco Use Status Never smoked tobacco 2017 Smoking Status Never smoker Sex Female Vital Signs Date / Time: Height Weight BMI Pulse Rate Blood Pressure Temperature Respiratory Rate Body Surface Area Head Circumference Head Circ. Percentile Wt./Kamari. Percentile BMI percentile Pulse Ox Inhaled Ox 2:49 PM 64.00 in 78.562 kg (173.20 lbs) 29.7 3 kg/m eter (2) 90 /min 123/87 mm[Hg] Chief Complaint And Reason For Visit No Information Reason For Referral Reason For Referral No Information History Of Present Illness Encounter Date Complaint History Of Prese nt Illness No Information Functional Status Date Functional Assessmen t No Information Instructions Date Instruction Additional Infor mation Weight Management Education Rela chikis to Overweight Weight management: I nstructed to return to General Practitioner timeframe: 1 Month. Related to Overweight Assessments Type Assessment Date assessment Arthrodesis status Patient Care Teams Name Effective Dates (start - stop) Status Members No Information
== END 2023-10-05 19:24 | disposition home or self-care (01) ==
LOC: ED 19:21
PROVIDERS: Emergency Provider Emergency Medicine; PCP Family Medicine
DX: M54.31 Sciatica, right side (principal)
CPT/HCPCS: 99283; 99284

== ENCOUNTER 2023-10-31 22:22 | Emergency (ER) | payer MEDICARE, SELFPAY ==
--- NOTE | 2023-10-31 | CRLHL7_ITS ---
For Patients: As a result of the Century Cures Act, medical imaging exams and procedure reports are released immediately into your electronic medical record. You may view this report before your referring provider. If you have questions, please contact your health care provider. INDICATION: Right lower extremity hematoma. TECHNIQUE: Right tibia-fibula radiographs, 2 views. COMPARISON: None. FINDINGS: No acute fractures or dislocation. Contour irregularity to the distal fibular head, may be sequela of prior remote trauma. The joint spaces are preserved. The talar dome remains smooth. Mild diffuse soft tissue edema. No suspicious ulcerations or periosteal reaction. IMPRESSION: Mild diffuse soft tissue edema without underlying acute fractures or dislocation. Limited evaluation for soft tissue hematoma. Consider further evaluation with ultrasound or CT if clinically warranted. Dictated by Jamison Christianson MD @ 11/01/2023 12:13:19 AM (Electronically Signed)
[2023-10-31 22:42] VITALS: BP 130/81; PULSE 81; RESP 18; TEMP 36.7; O2SAT 98; BMI 31.8
--- OUTSIDE RECORDS SUMMARY | 2023-10-31 23:39 | XMS_ITS | Continuity of Care Document ---
Author Name Unknown Organization [facility] Address [address] [place] [address] Phone Care Team Providers Care Technician Test Systems Name Role Phone Abdirahman AMEZCUA, PhD, Jensen [...] ient Visit,Est, Mod [facility], [address], [place], [id number], [place] tel:[phone] [facility] [place] Arthrodesis status Abdirahman Styles. [facility], [address], [place], [address], [place]. tel:[phone] [facility]: [facility] [address] [place], [address]. tel:[phone] Office/Outpat ient Visit,New, Lindy [facility], [address], [place], [id number], [place] tel:[phone] [facility] [place] Other idiopathic scoliosis, thoracic region Abdirahman Styles. [facility], [address], [place], [address], [place]. tel:[phone] Referring Provider: [facility] [address] [place], [address]. tel:[phone] Family History Family Member Type Diagnosis Age At Onset No Information Payers Payer name Insurance type Covered green party ID Authoriza tion(s) No Information Social History [...]
--- NOTE | 2023-11-01 00:02 | PC.NURSE ---
Pt out at desk stating that she can go home and get some ice and some tylenol. All cares explaind. Tylenol given as ordered and ice bag provided.
[2023-11-01] MEDS: ACETAMINOPHEN 325 MG TABLET 650 MG PO (00:08)
--- NOTE | 2023-11-01 00:53 | PC.NURSE ---
Written and verbal D/C per MD and RN. Pt ambulate out with with stable gait.
[2023-11-01 01:05] VITALS: BP 125/74; PULSE 79; RESP 18; TEMP 36.7; O2SAT 98
--- NOTE | 2023-11-01 07:20 | ED_ITS ---
HPI - Extremity Injury (Lower) General Date Seen: 11/01/23 Chief Complaint: Extremity Pain/Injury, Lower Stated Complaint: R leg swelling Time Seen by Provider: 10/31/23 23:12 Source: patient and family Mode of arrival: ambulatory Limitations: no limitations History of Present Illness HPI Narrative: This pleasant 72-year-old female presents here with the swelling to her right rosas, this occurred approximately 1 hour ago she just noticed it. She does not remember hitting it or injuring it against anything. She came into the emergency room visit hurts. Is worried that she may have developed a blood clot. She is on aspirin which she takes every other day. Not sure why she takes this, no other history of any other anticoagulants, there is no history of any trauma, she is here with her . MD complaint: leg injury Onset (ago): hour(s) Injury: Left: knee Type of Injury: unknown Place: home Severity: moderate Relieving factors: rest Exacerbating factors: movement Treatments prior to arrival: cold therapy Related Data Home Medications Medication Instructions Recorded Confirmed albuterol sulfate 90 mcg/actuation 2 puff inhalation QID PRN 07/06/22 09/27/23 aerosol inhaler (ProAir HFA) budesonide-formoterol HFA 160 2 puff inhalation BID 07/06/22 09/27/23 mcg-4.5 mcg/actuation aerosol inhaler (Symbicort) ipratropium 0.5 mg-albuterol 3 mg 3 ml inhalation QID PRN 07/06/22 09/27/23 (2.5 mg base)/3 mL nebulization soln montelukast 10 mg tablet 10 mg PO QPM 07/06/22 09/27/23 (Singulair) calcium carbonate 600 mg calcium 600 mg PO BID 08/09/22 09/27/23 (1,500 mg) tablet multivitamin (Multiple Vitamins 1 tab PO QDAY 08/09/22 09/27/23 tablet) tizanidine 4 mg tablet 4 mg PO TID PRN 03/17/23 09/27/23 aspirin 81 mg tablet,delayed 81 mg PO .THREE TIMES WEEKLY 09/27/23 09/27/23 release (Adult Aspirin Regimen) Previous Rx's Medication Instructions Recorded hydrochlorothiazide 25 mg tablet See Rx Instructions .Route 01/02/23 .COMPLEX #90 tabs escitalopram oxalate 10 mg tablet 10 mg PO QDAY #30 tabs 01/18/23 (Lexapro) ketorolac 10 mg tablet 10 mg PO TID 5 days #15 tabs 03/21/23 methocarbamol 500 mg tablet 500 mg PO TID #30 tabs 03/27/23 tramadol 50 mg tablet 50 mg PO Q6-8H 3 days #30 tabs 04/10/23 gabapentin 300 mg capsule See Rx Instructions PO .ud #240 08/30/23 caps rosuvastatin 5 mg tablet 5 mg PO QDAY #90 tabs 08/30/23 furosemide 20 mg tablet (Lasix) 40 mg (2 x 20 mg) PO DAILY #60 tabs 09/27/23 Allergies Allergy/AdvReac Type Severity Reaction Status Date / Time lisinopril Allergy Intermediate Cough Verified 09/27/23 15:35 Bee venom Allergy Intermediate hives and Uncoded 09/27/23 15:35 itching Review of Systems Status of ROS: Reports: 6 or more systems reviewed and unremarkable except as noted in History and below [facility] Medical History Pulmonary embolism ?I26.99 - Other pulmonary embolism without acute cor pulmonale (ICD-10) Surgical History History of varicose vein stripping ?Z98.890 - Other specified postprocedural states (ICD-10) Status post spinal surgery ?Z98.890 - Other specified postprocedural states (ICD-10) Status post cholecystectomy ?Z90.49 - Acquired absence of other specified parts of digestive tract (ICD- 10) History of surgery on upper extremity (06/25/09) ?Z98.890 - Other specified postprocedural states (ICD-10) History of endometrial ablation (06/25/09) ?Z98.890 - Other specified postprocedural states (ICD-10) Social History Smoking Status: Never smoker Do you use any of these nicotine containing products: None Second hand tobacco smoke exposure: No How often do you have a drink containing alcohol: never AUDIT-C Alcohol total score: 0 Non-prescribed substance use: denies use Exam Narrative: Exam Narrative: On examination there is very clearly over her right rosas I hematoma just below her knee, it is approximately 6 x 6 cm. Somewhat deep. Overlying the tibia. She has good range of motion of her right knee. For from full from 0 through the 100?. Is able to walk and bear weight. Distal DP and posterior tibial pulses are normal or sensations normal. I did take the ultrasound, and using the linear transducer. Was able the see that there is a clearly fluid. Leg raise along the bone. There is no Doppler tone to this us no blood flow. Consistent with a hematoma Const: Vital Signs, click to edit/add: Vital Signs - 24 hr 10/31/23 22:42 11/01/23 01:05 11/01/23 01:05 Temperature 98.1 F 98.1 F 98.1 F Pulse Rate [Pulse Oximeter] 81 79 79 Respiratory Rate 18 18 18 Blood Pressure [Ri ght Upper Arm] 130/81 125/74 125/74 Pulse Oximetry 98 98 Oxygen Delivery Me thod Room Air Room Air Documenting provider has reviewed patient's vital signs: yes Course Vital Signs Vital signs: Initial Vital Signs Temperature 98.1 F 10/31/23 22:42 Temperature Source Temporal Artery Scan 10/31/23 22:42 Pulse Rate 81 10/31/23 22:42 Respiratory Rate 18 10/31/23 22:42 Blood Pressure 130/81 10/31/23 22:42 Blood Pressure Mean 97 10/31/23 22:42 Pulse Oximetry 98 10/31/23 22:42 Oxygen Delivery Method Room Air 10/31/23 22:42 Vital Signs Temperature 98.1 F 10/31/23 22:42 Pulse Rate 81 10/31/23 22:42 Respiratory Rate 18 10/31/23 22:42 Blood Pressure 130/81 10/31/23 22:42 Pulse Oximetry 98 10/31/23 22:42 Oxygen Delivery Method Room Air 10/31/23 22:42 Temperature 98.1 F 11/01/23 01:05 Pulse Rate 79 11/01/23 01:05 Respiratory Rate 18 11/01/23 01:05 Blood Pressure 125/74 11/01/23 01:05 Pulse Oximetry 98 11/01/23 01:05 Oxygen Delivery Method Room Air 11/01/23 01:05 Medications Administered Medications: Discontinued Medications Generic Name Dose Route Start Last Admin Trade Name Claudio PRN Reason Stop Dose Admin Acetaminophen 650 mg 11/01/23 00:06 11/01/23 00:08 Acetaminophen 325 Mg Tablet PO 11/01/23 00:07 650 mg ONCE ONE Administration Discharge Plan Discharge Clinical Impression: Hematoma Condition: Stable Instructions: Bone Bruise (ED) Additional Instructions: Home rest use of ice, you may walk on it, but it will hurt, the bruise will track down over your leg and into her foot. We do not do anything for this, unl ess it gets infected, with the fevers chills, icing his best as possible Activity Level: No Restrictions Prescriptions: No Action multivitamin [Multiple Vitamins] Tablet 1 tab PO QDAY calcium carbonate 600 mg calcium (1,500 mg) tablet 600 mg PO BID tizanidine 4 mg tablet 4 mg PO TID PRN aspirin [Adult Aspirin Regimen] 81 mg tablet,delayed release (DR/EC) 81 mg PO .THREE TIMES WEEKLY furosemide [Lasix] 20 mg tablet 40 mg PO DAILY Qty: 60 3RF ketorolac 10 mg tablet 10 mg PO TID 5 Days Qty: 15 0RF budesonide-formoterol [Symbicort] 160-4.5 mcg/actuation HFA aerosol inhaler 2 puff inhalation BID ipratropium-albuterol 0.5 mg-3 mg(2.5 mg base)/3 mL solution for nebulization 3 ml inhalation QID PRN montelukast [Singulair] 10 mg tablet 10 mg PO QPM albuterol sulfate [ProAir HFA] 90 mcg/actuation HFA aerosol inhaler 2 puff inhalation QID PRN hydrochlorothiazide 25 mg tablet See Rx Instructions .ROUTE .COMPLEX Qty: 90 3RF Dose Instruction: TAKE ONE TABLET BY MOUTH ONCE DAILY Rx Instructions: TAKE ONE TABLET BY MOUTH ONCE DAILY escitalopram oxalate [Lexapro] 10 mg tablet 10 mg PO QDAY Qty: 30 5RF Rx Instructions: Take 1/2 tablet (5mg) daily for 2 days, then take 1 tablet daily methocarbamol 500 mg tablet 500 mg PO TID Qty: 30 2RF tramadol 50 mg tablet 50 mg PO Q6-8H 3 Days Qty: 30 0RF rosuvastatin 5 mg tablet 5 mg PO QDAY Qty: 90 0RF gabapentin 300 mg capsule See Rx Instructions PO .ud Qty: 240 2RF Rx Instructions: 300 mg QAM and QMidday, and 600 mg QHS orally UD; Follow Up/Referrals: Waldemar Arzate MD [Primary Care Provider] -
== END 2023-11-01 01:06 | disposition home or self-care (01) ==
PROVIDERS: Emergency Provider Family Medicine; PCP Family Medicine
DX: S80.11XA Contusion of right lower leg, initial encounter (principal); R23.3 Spontaneous ecchymoses
CPT/HCPCS: 73590; 95992; 99282; 99283; A9270

== ENCOUNTER 2023-11-17 08:15 | Outpatient (CLI) | payer MEDICARE, SELFPAY ==
--- OUTSIDE RECORDS SUMMARY | 2023-11-17 08:18 | XMS_ITS | Continuity of Care Document ---
Author Name Unknown Organization [facility] Address [address] [place] [address] Phone Care Team Providers Care Vendor Quality Supervisor Name Role Phone Abdirahman AMEZCUA, PhD, Jensen Unavailable Unavai lable Allergies, Adverse Reactions, Alerts Substance Reaction Status Criticality BEE STING KIT hives, swelling Active No Informat ion Medications Medication Instructions Dosage Effective Dates (start - stop) Status Comments NORVASC (unknown strength) Not Available - Active PROAIR RESPICLICK (unknown strength) Not Available - Active CALCIUM CARBONATE/VITAMIN D3 (unknown strength) Not Available - Active MULTIVITAMINS (unknown strength) Not Available - Active SPIRIVA HANDIHALER (unknown strength) Not Available - Active SYMBICORT (unknown strength) Not Available - Active MONTELUKAST SODIUM (unknown strength) Not Available - Active QBRELIS (unknown strength) Not Available - Active ATENOLOL (unknown strength) Not Available - No Longer Active Procedures Procedure Date Office/Outpatient Visit,Est, Mod 2017 Office/Outpatient Visit,New, Mod 2016 Advance Directives Directive Yes / No Effective Date File Name No Information Encounters Encounter Description Practice Location Reason(s) For Visit Diagnoses Date Provider Providers Copied on Encounter Office/Outpat ient Visit,Est, Mod [facility], [address], [place], [id number], [place] tel:[phone] [facility] [place] Arthrodesis status Abdirahman Styles. [facility], [address], [place], [address], [place]. tel:[phone] [facility] [address] [place], [address]. tel:[phone] Office/Outpat ient Visit,New, Lindy [facility], [address], [place], [id number], [place] tel:[phone] [facility] [place] Other idiopathic scoliosis, thoracic region Abdirahman Styles. [facility], [address], [place], [address], [place]. tel:[phone] [facility] [address] [place], [address]. tel:[phone] Family History Family Member Type Diagnosis Age At Onset No Information Payers Payer name Insurance type Covered constitution party ID Authoriza tion(s) No Information Social [...] Additional Infor mation Weight Management Education Rela hcikis to Overweight Weight management: I nstructed to return to General Practitioner timeframe: 1 Month. Related to Overweight Assessments Type Assessment Date assessment Arthrodesis status Patient Care Teams Name Effective Dates (start - stop) Status Members No Information
[2023-11-17 08:55] LABS: Basophils Absolute Auto 0.02 K/uL (0.00-0.30); Basophils Percent Auto 0.4 % (0.0-3.0); Eosinophils Absolute Auto 0.15 K/uL (0.00-0.50); Eosinophils Percent Auto 2.7 % (0.0-7.0); Hemoglobin* 12.6 gm/dL (12.0-16.0); Lymphocytes Absolute Auto 1.16 K/uL (0.90-2.90); Lymphocytes Percent Auto 20.7 % (20-44); Mean Corpuscular HGB Conc 32 gm/dL (32-36); Mean Corpuscular Hemoglobin 31 pg (26-34); Mean Corpuscular Volume 95 fL (80-100); Monocytes Percent Auto 11.1 % (0.0-11.0); Neutrophils Absolute Auto 3.66 K/uL (1.7-7.0); Neutrophils Percent Auto 65.1 % (42.0-72.0); Platelet Count* 159 K/uL (140-440); Red Blood Count 4.11 m/uL (4.00-5.20); White Blood Count* 5.61 K/uL (4.50-11.00)
[2023-11-17 08:59] LABS: Slide Review Reflex No
[2023-11-17 13:23] LABS: Chloride* 106 mmol/L (96-114); Sodium* 139 mmol/L (135-149)
[2023-11-17 13:26] LABS: Anion Gap -1 mEq/L (7-15); Blood Urea Nitrogen* 15 mg/dL (7-30); Carbon Dioxide* 34 mmol/L (20-32); Cholesterol* 124 mg/dL (90-199); Creatinine* 0.5 mg/dL (0.5-1.5); Estimated Glomerular Filt Rate 100 ml/min; Glucose* 109 mg/dL (60-115)
[2023-11-17 13:27] LABS: Calcium* 9.3 mg/dL (8.4-10.6); HDL Cholesterol* 55 mg/dL (>=50); LDL Cholesterol Calculated 57 mg/dL (<100); Triglycerides* 60 mg/dL (40-149)
== END 2023-11-17 08:16 | disposition home or self-care (01) ==
PROVIDERS: PCP Family Medicine; Visit Provider Family Medicine
DX: R53.83 Other fatigue (principal); E78.5 Hyperlipidemia, unspecified; I10 Essential (primary) hypertension; E66.9 Obesity, unspecified
CPT/HCPCS: 80048; 80061; 84443; 85025

== ENCOUNTER 2024-05-26 19:47 | Outpatient (CLI) | payer MEDICARE, SELFPAY ==
--- OUTSIDE RECORDS SUMMARY | 2024-05-28 18:03 | XMS_ITS | Encounter Summary ---
Author Organization [facility] Address [address] [place] [address]. [place] [address] Care Team Providers Care Acid Retort Operator Name Role Phone Craig Shaikh MD Unavailable [phone] Sarah Woods MD Unavailable [phone] Aaron Arzate MD Primary Care Provider [phone] Fracisco See MD Unavailable [phone] Myron Mcqueen DO Unavailable [phone] Caitie Sheth MD Unavailable Vishal Roy MD Unavailable + [phone] Rebecca Taylor DO Unavailable Craig Ku MD Unavailable [phone] Reason for Visit * Reason Onset Date Comments Call Back 06/07/2023 Encounter Details Date Type Department Care Team (Late st Contact Info) Description 06/07/2023 Telephone [facility] [id number] [place] [address] Sarah Woods MD 420 [facility] [address] [place] [address] Call Back Social History Tobacco Use Types Packs/Day Years Used Date Smoking Tobacco: Never Smokeless Tobacco: Never Alcohol Use Standard Drinks/Week Comments Not Currently 0 (1 standard drink = 0.6 oz pur e alcohol) PHQ-2 Answer Date Recorded PHQ-2 Score 0 03/01/2023 Sex and Gender Information Value Date Recorded Sex Assigned at Not on file Gender Identity 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 Sexual Orientation Not on file documented as of this encounter Miscellaneous Notes * Telephone Encounter - Marsha Mckeon - 06/07/2023 2:41 PM CDT M [facility] Call Center Phone Message May a detailed [...] st Contact Info) Description 01/07/2025 1:30 PM RIVER BOAT CAPTAIN Office Visit [facility] [address] [phone] Sarah Woods MD [address] [address] documented as of this encounter Visit Diagnoses Not on filedocumented in this encounter Care Teams Acid Retort Operator Relationship Specialty Start Date End Date Craig Shaikh MD [address] [place] [address] PCP - Orthopaedics 07/14/20 Aaron Arzate MD [address] [address] PCP - General Family Medicine 10/05/20 Sarah Woods MD [address] [id number] Assigned Pulmonology Provider 09/11/20 Fracisco See MD [address] [facility] [address] [place], [place] [address] Assigned Musculoskeletal Provider 05/07/22 04/10/24 Myron Mcqueen DO [address] [place] [address] Assigned Neuroscience Provider 11/12/22 09/08/23 [place] [address] [facility] [address] Pain Medicine 01/18/23 Vishal Roy MD [address] [place] [place] [address] Pain Medicine 03/09/23 Rebecca Taylor DO RAYUS Assigned Neuroscience Provider 09/09/23 10/20/23 Craig Ku MD [address] [facility] [id number] [place], [place] [address] Assigned Neuroscience Provider 10/21/23 documented as of this encounter
--- OUTSIDE RECORDS SUMMARY | 2024-05-28 18:03 | XMS_ITS | Encounter Summary ---
Author Organization [facility] Address [address] [place] [address]. [place] [address] Care Team Providers Care Jack Spooler Tender Name Role Phone Craig Shaikh MD Unavailable [phone] Sarah Woods MD Unavailable [phone] Aaron Arzate MD Primary Care Provider [phone] Caitie Sheth MD Unavailable Vishal Roy MD Unavailable + [phone] Craig Ku MD Unavailable [phone] Reason for Visit * Reason Comments Medication Refill Encounter Details Date Type Department Care Team (Late st Contact Info) Description 04/26/2024 Refill [facility] [address] [place] [address] Sarah Woods MD [address] [place] [address] [address] [place] [address] Medication Refill Social History Tobacco [...] file Gender Identity Female 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 Sexual Orientation Not on file documented as of this encounter Plan of Treatment Upcoming Encounters Date Type Department Care Team (Late st Contact Info) Description 01/07/2025 1:30 PM OFFSET PRESS OPERATOR HELPER Office Visit [facility] and [address] [phone] Sarah Woods MD [address] [address] documented as of this encounter Visit Diagnoses Diagnosis Moderate persistent asthma without complication Unspecified asthma Dyspnea on exertion Other dyspnea and respiratory abnormality documented in this encounter Care Teams Jack Spooler Tender Relationship Specialty Start Date End Date Craig Shaikh MD [address] [place] [address] PCP - Orthopaedics 07/14/20 Aaron Arzate MD [address] [place] [address]195 PCP - General Family Medicine 10/05/20 Sarah Woods MD [address] [place] [id number] Assigned Pulmonology Provider 09/11/20 [place] [address] [id number] Pain Medicine 01/18/23 Vishal Roy MD [address] [address] Pain Medicine 03/09/23 Craig Ku MD [address] [place], [place] [address], [place] [address] Assigned Neuroscience Provider 10/21/23 documented as of this encounter
--- OUTSIDE RECORDS SUMMARY | 2024-05-28 18:03 | XMS_ITS | Clinical Summary ---
Author Organization [facility] Address [address] [place] [address] Care Team Providers Care Chemical Compounder Name Role Phone Craig Shaikh MD Unavailable [phone] Sarah Woods MD Unavailable [phone] Aaron Arzate MD Primary Care Provider [phone] Caitie Sheth MD Unavailable Vishal Roy MD Unavailable + [phone] Craig Ku MD Unavailable [phone] Allergies Active Allergy Reactions Criticality Noted Date [...] Overview: Added automatically from request for surgery [id number] Foraminal stenosis of lumbar region 07/21/2020 Overview: Added automatically from request for surgery [id number] Elevated coronary artery calcium score 9 Sesamoiditis 02/09/2009 Scoliosis, adolescent acquired 03/23/1964 Encounters Date Type Department Care Team Description 05/28/2024 Telephone [facility] [address] [address] Sarah Woods MD Call Back 04/26/2024 Refill [facility] [address] [address] Sarah Woods MD Medication Refill from Last [...] file Gender Identity Female 10/12/2020 11:38 AM OPERATIONS/DISPATCH Sexual Orientation Not on file Last Filed Vital Signs Vital Sign Reading Time Taken Comments Blood Pressure 143/84 10/16/2023 10:18 AM OPERATIONS/DISPATCH Pulse 76 01/09/2024 3:02 PM OPERATIONS/DISPATCH Temperature 36.8 ??C (98.2 ??F) 09/20/2022 11:15 AM C DT Respiratory Rate 16 10/16/2023 10:18 AM OPERATIONS/DISPATCH Oxygen Saturation 97% 01/09/2024 3:02 PM OPERATIONS/DISPATCH Inhaled Oxygen Concentration - - Weight 83.9 kg (185 lb) 10/16/2023 10:18 AM OPERATIONS/DISPATCH Height 160 cm (5' 3) 10/16/2023 10:18 AM OPERATIONS/DISPATCH Body Mass Index 32.77 10/16/2023 10:18 AM OPERATIONS/DISPATCH Plan of Treatment Upcoming Encounters Date Type Department Care Team (Late st Contact Info) Description 01/07/2025 1:30 PM OPERATIONS/DISPATCH Office Visit [facility] [place] [address] [facility] [place] [address] Sarah Woods MD 420 [facility] [address] [place] [address] Health Maintenance Due Date Last [...] CONTROL TEST 11/02/2022 05/03/2022 GLUCOSE 09/28/2023 09/28/2020, 11/0 06/2020, 09/26/2020, Additional history exists PHQ-2 (once [...] this topic Medical Devices Implanted Type Area Logistics Clerk Device Identifier Shelf Expiration Date Model / Serial / Lot Graft Bone Crush Canc 30ml [id number] Implanted:Qty : 1 on 09/21/2020 by Fracisco See MD at [facility] Bone/Tissu e/Biologic N/A: Spine Lumbar MUSCULOSKELETAL OBANDO 07/13/2023 [id number] / [id number] / Graft Bone Crush Canc 30ml [id number] Implanted:Qty : 1 on 09/21/2020 by Fracisco See MD at [facility] Bone/Tissu e/Biologic N/A: Spine Lumbar MUSCULOSKELETAL OBANDO 07/08/[id number] / [id number] / Imp Scr Medt 5.5/6.0mm Solera 6.5x40mm Ma [id number] Implanted:Qty : 2 on 09/21/2020 by Fracisco See MD at [facility] Metallic Hardware/A nchor N/A: Spine Lumbar [employer] [id number] / / [id number] Imp Scr Medt 5.5/6.0mm Solera 6.5x30mm Ma [id number] Implanted:Qty : 1 on 09/21/2020 by Fracisco See MD at [facility] Metallic Hardware/A nchor N/A: Spine Lumbar [employer] [id number] / / [id number] Imp Scr Medt 5.5/6.0mm Solera 5.5x45mm Ma [id number] Implanted:Qty : 1 on 09/21/2020 by Fracisco See MD at [facility] Metallic Hardware/A nchor N/A: Spine Lumbar [employer] [id number] / / [id number] Imp Scr Medt 5.5/6.0mm Solera 5.5x40mm Ma [id number] Implanted:Qty : 2 on 09/21/2020 by Fracisco See MD at [facility] Metallic Hardware/A nchor N/A: Spine Lumbar [employer] [id number] / / [id number] Imp Connector Medt Torres Closed 5.5mm [id number] Implanted:Qty : 2 on 09/21/2020 by Fracisco See MD at [facility] Metallic Hardware/A nchor N/A: Spine Lumbar [employer] [id number] / / Imp Connector Torres Medt 5.5mm [id number] Implanted:Qty : 2 on 09/21/2020 by Fracisco See MD at [facility] Metallic Hardware/A nchor N/A: Spine Lumbar [employer] [id number] / / Imp Scr Set Torres Medt 5.5 To 5.5mm [id number] Implanted:Qty : 8 on 09/21/2020 by Fracisco See MD at [facility] Metallic Hardware/A nchor N/A: Spine Lumbar [employer] [id number] / / Imp Matias Medt Solera Lined 5.1k062xd [facility] [id number] Implanted:Qty : 2 on 09/21/2020 by Fracisco See MD at [facility] Metallic Hardware/A nchor N/A: Spine Lumbar [employer] [id number] / / Imp Scr Set Medt Solera Break Off 5.5mm Ti [id number] Implanted:Qty : 10 on 09/21/2020 by Fracisco See MD at [facility] Metallic Hardware/A nchor N/A: Spine Lumbar [employer] [id number] / / [id number] Imp Scr Medt 5.5/6.0mm Solera 7.5x45mm Ma [id number] Implanted:Qty : 1 on 09/21/2020 by Fracisco See MD at [facility] Metallic Hardware/A nchor N/A: Spine Lumbar [employer] [id number] / / [id number] Imp Scr Medt 5.5/6.0mm Solera 7.5x35mm Ma [id number] Implanted:Qty : 1 on 09/21/2020 by Fracisco See MD at [facility] Metallic Hardware/A nchor N/A: Spine Lumbar [employer] [id number] / / [id number] Ifuse Implant System 7.0mm X 90 Mm Implant Implanted:Qty : 1 on 09/21/2020 by Fracisco See MD at [facility] Right: Sacrum [employer] 11/04/2024 7090M-90 / / [id number] Description:SI Joint Ifuse Implant System 7.0mm X 90 Mm Implant Implanted:Qty : 1 on 09/21/2020 by Fracisco See MD at [facility] Left: Sacrum [employer] 03/11/2055 7090M-90 / / [id number] Description:SI Joint 9.5 X 100 Ballast Screw Implanted:Qty : 2 on 09/21/2020 by Fracisco See MD at [facility] N/A: Spine Lumbar [id number] / / Explanted Type Area Logistics Clerk Device Identifier Shelf Expiration Date Model / Serial / Lot Imp Scr Medt 5.5/6.0mm Solera 6.5x40mm Ma [id number] Explanted:Qty: 1 on 09/21/2020 by Fracisco See MD at [facility] Metallic Hardware/An chor N/A: Spine Lumbar [employer] [id number] / / [id number] Imp Scr Medt 5.5/6.0mm Solera 7.5x45mm Ma [id number] Explanted:Qty: 1 on 09/21/2020 by Fracisco See MD at [facility] Metallic Hardware/An chor N/A: Spine Lumbar [employer] [id number] / / Imp Scr Medt 5.5/6.0mm Solera 5.5x45mm Ma [id number] Explanted:Qty: 1 on 09/21/2020 by Fracisco See MD at [facility] Metallic Hardware/An chor N/A: Spine Lumbar [employer] [id number] / / [id number] Imp Scr Medt 5.5/6.0mm Solera 5.5x40mm Ma [id number] Explanted:Qty: 1 on 09/21/2020 by Fracisco See MD at [facility] Metallic Hardware/An chor N/A: Spine Lumbar [employer] [id number] / / [id number] Imp Scr Medt 5.5/6.0mm Solera 6.5x30mm Ma [id number] Explanted:Qty: 1 on 09/21/2020 by Fracisco See MD at [facility] Metallic Hardware/An chor N/A: Spine Lumbar [employer] [id number] / / [id number] Posterior Spine Explants Explanted:Qty: 1 on 09/21/2020 by Fracisco See MD at [facility] Bilateral : Spine Lumbar Procedures Procedure Name Priority Date/Time Associated Diagnosis Comments BASIC METABOLIC PANEL Routine 09/28/2020 6:25 AM OPERATIONS/DISPATCH Pneumonia due to 2019 novel coronavirus DX PERIPHERAL WRIST Routine 07/16/2020 1 :09 PM CDT Other specified disorders of bone density and structure, other site MAMMOGRAM - HIM SCAN 07/18/2019 12:00 AM CDT from Last 3 Months or Most Recently Relevant to Health Maintenance Results * (ABNORMAL) Basic metabolic panel (09/28/2020 6:25 AM OPERATIONS/DISPATCH) Sodium 141 133 - 144 mmol/L 09/28/2020 7:05 AM OPERATIONS/DISPATCH [facility] Potassium 4.0 3.4 - 5.3 mmol/L 09/28/2020 7:05 AM OPERATIONS/DISPATCH [facility] Chloride 110(H) 94 - 109 mmol/L 09/28/2020 7:05 AM OPERATIONS/DISPATCH [facility] Carbon Dioxide 25 20 - 32 mmol/L 09/28/2020 7:10 AM OPERATIONS/DISPATCH [facility] Anion Gap 6 3 - 14 mmol/L 09/28/2020 7:10 AM OPERATIONS/DISPATCH [facility] Glucose 116(H) 70 - 99 mg/dL 09/28/2020 7:10 AM OPERATIONS/DISPATCH [facility] Urea Nitrogen 11 7 - 30 mg/dL 09/28/2020 7:10 AM OPERATIONS/DISPATCH [facility] Creatinine 0.53 0.52 - 1.04 mg/dL 09/28/2020 7:10 AM OPERATIONS/DISPATCH [facility] GFR Estimate >90 >60 mL/min/{1. 73_m2} 09/28/2020 7:10 AM OPERATIONS/DISPATCH [facility] Comment: Non GFR Calc Starting 11/06/2018, serum creatinine based estimated GFR (eGFR) will be calculated using the Chronic Kidney Disease Epidemiology Collaboration (CKD-EPI) equation. GFR Estimate If Black >90 >60 mL/min/{1. 73_m2} 09/28/2020 7:10 AM OPERATIONS/DISPATCH [facility] Comment: GFR Calc Starting 11/06/2018, serum creatinine based estimated GFR (eGFR) will be calculated using the Chronic Kidney Disease Epidemiology Collaboration (CKD-EPI) equation. Calcium 8.6 8.5 - 10.1 mg/dL 09/28/2020 7:10 AM OPERATIONS/DISPATCH [facility] Blood specimen (specimen) 09/28/2020 6:25 AM OPERATIONS/DISPATCH 09/28/2020 6:26 AM OPERATIONS/DISPATCH Rajat Moreland MD LAB - BLOOD ORDERABL ES NIKKI [facility] * Dexa wrist heel (07/16/2020 1:09 PM CDT) Anatomical Region Laterality Modality Dexa Bone Mineral Den sity Narrative 07/20/2020 10:05 AM CDT Results are reported under DXA scan report for the hip/spine performed on the same day. Principal result unemployment insurance hearing officer: Dante Ocampo MD, [facility] Division of Diabetes, Endocrinology and Metabolism [facility] [phone] Fracisco See MD IMG DEXA ORDERABLES * MAMMOGRAM - HIM SCAN (07/18/2019 12:00 AM CDT) Anatomical Region Laterality Modality Other 07/18/2019 Provider Outside IMG MAMMOGRAPHY ORDE RABLES from Last 3 Months or Most Recently Relevant to Health Maintenance Advance Directives For more information, please contact: [phone] * Full Code (Latest Code Status on File) Date Activated Date Inactivated Comments 09/21/2020 9:01 PM 09/30/2020 6:25 PM All basic a nd advanced life-sustaining interventions are performed as appropriate Question Answer Comments Code status determined by: Discussion with reza nt/ legal decision maker Care Teams Chemical Compounder Relationship Specialty Start Date End Date Craig Shaikh MD [address] [facility] [address] [place] [address] PCP - Orthopaedics 07/14/20 Aaron Arzate MD [address] [facility] [address] [place], [place] [id number] PCP - General Family Medicine 10/05/20 Sarah Woods MD [address] [address] Assigned Pulmonology Provider 09/11/20 [place] [address] [address] Pain Medicine 01/18/23 Vishal Roy MD [address] [place] [address] Pain Medicine 03/09/23 Craig Ku MD [address] [facility] [id number] [address] Assigned Neuroscience Provider 10/21/23
--- OUTSIDE RECORDS SUMMARY | 2024-05-28 18:03 | XMS_ITS | Continuity of Care Document ---
Author Organization [facility] Address [address] [place] [address] Phone Care Team Providers Care Splitting Machine Operator Helper Name Role Phone Abdirahman AMEZCUA, PhD, Jensen [...] ient Visit,Est, Mod [facility], [address], [place], [id number], [place] tel:[phone] [facility] Arthrodesis status Abdirahman Styles. [facility], [address], [place], [address], [place]. tel:[phone] Referring Provider: [facility] [address] [place], [address]. tel:[phone] Office/Outpat ient Visit,New, Lindy [facility], [address], [place], [place], [id number], [place] tel:[phone] [facility] Other idiopathic scoliosis, thoracic region Abdirahman Styles. [facility], [address], [place], [address], [place]. tel:[phone] Referring Provider: [facility] [address] [place], [address]. tel:[phone] Family History Family Member Type Diagnosis Age [...]
--- OUTSIDE RECORDS SUMMARY | 2024-05-28 18:03 | XMS_ITS | Encounter Summary ---
Author Organization [facility] Address [address] [place] [address]. [place] [address] Care Team Providers Care Road Roller Engineer Name Role Phone Craig Shaikh MD Unavailable [phone] Sarah Woods MD Unavailable [phone] Araon Arzate MD Primary Care Provider Fracisco See MD Unavailable [phone] Caitie Sheth MD Unavailable Vishal Roy MD Unavailable [phone] Rebecca Taylor DO Unavailable Craig Ku MD Unavailable [phone] Reason for Visit * Reason Onset Date Comments Call Back 10/02/2023 Encounter Details Date Type Department Care Team (Late st Contact Info) Description 10/02/2023 Telephone [facility] [id number] [place] [address] Sarah Woods MD 420 [facility] [address] [place] [address] Call Back Social History Tobacco [...] file Gender Identity Female 10/12/2020 11:38 AM 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 Sleep study completed at [facility], I have asked that she have the report and notes faxed to our clinic for Dr Woods's review. Follow up with Dr Woods scheduled for 01/09. LIANCE VICE PRESIDENT * Telephone Encounter - Marsha Mckeon - 10/02/2023 4:33 PM CST [facility] Call Center Phone Message May a [...] Taken: Other: pulm Travel Screening: Not Applicable LIANCE VICE PRESIDENT documented in this encounter Plan of Treatment Upcoming Encounters Date Type Department Care Team (Guero st Contact Info) Description 01/07/2025 1:30 PM COMPLIANCE VICE PRESIDENT Office Visit [facility] [id number] [place] [address] Sarah Woods MD [address] [place] [address] documented as of this encounter Visit Diagnoses Not on filedocumented in this encounter Care Teams Road Roller Engineer Relationship Specialty Start Date End Date Craig Shaikh MD [address] [place], [place] [address], [place] [address] PCP - Orthopaedics 07/14/20 Aaron Arzate MD 420 [facility] [address] [place] [address] PCP - General Family Medicine 10/05/20 Sarah Woods MD 420 [facility] [address] [place] [address] Assigned Pulmonology Provider 09/11/20 Fracisco See MD [address] [place], [place] [address] Assigned Musculoskeletal Provider 05/07/22 04/10/24 [place] [address] [address] Pain Medicine 01/18/23 Vishal Roy MD [address] [address] Pain Medicine 03/09/23 Rebecca Taylor DO RAYUS Assigned Neuroscience Provider 09/09/23 10/20/23 Craig Ku MD [address] [facility] - [id number], [place] [address] Assigned Neuroscience Provider 10/21/23 documented as of this encounter
--- OUTSIDE RECORDS SUMMARY | 2024-05-28 18:03 | XMS_ITS | Encounter Summary ---
Author Organization [facility] Address [address] [place] [address]. [place] [address] Care Team Providers Care Sliding Joint Maker Name Role Phone Craig Shaikh MD Unavailable Sarah Woods MD Unavailable [phone] Aaron Arzate MD Primary Care Provider [phone] Caitie Sheth MD Unavailable Vishal Roy MD Unavailable + [phone] Craig Ku MD Unavailable [phone] Reason for Visit * Reason Onset Date Comments Call Back 05/28/2024 Encounter Details Date Type Department Care Team (Late st Contact Info) Description 05/28/2024 Telephone [facility] [id number] [place] [address] Sarah Woods MD [address] [place] [address] 276 [place] [address] Call Back Social History Tobacco [...] file Gender Identity Female 10/12/2020 11:38 AM 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 Patient is currently inpatient at [facility] in [place] for COVID. Overall, patient feels OK. Patient is wondering if Dr. Woods would be OK writing prescription for Duoneb. Patient states she has used duonebs in the past and that it provides relief for her. She would also like to know if Dr. Woods is OK with patient seeing a different traffic monitor specialist before follow up in December 2024. -Yuly RN * Telephone Encounter - Sanjuanita Cerda - 05/28/2024 2:33 PM CDT [facility] Call Center Phone Message May a detailed message be left on voicemail: yes Reason for Call: Other: Pt was admitted in hospital and tested positive for covid. Currently on 20MG prednisone. Per pt wants to know if Dr. Woods would like her to schedule a follow up apt. Pt also has questions regarding nebulizer treatment. Please follow up with pt. Action Taken: Other: Pulm Travel Screening: Not Applicable Date of Service: documented in this encounter Plan of Treatment Upcoming Encounters Date Type Department Care Team (Late st Contact Info) Description 01/07/2025 1:30 PM AGRICULTURAL EXTENSION OFFICER Office Visit [facility] [address] [place] [address] Sarah Woods MD [address] [place] [address] documented as of this encounter Visit Diagnoses Not on filedocumented in this encounter Care Teams Sliding Joint Maker Relationship Specialty Start Date End Date Craig Shaikh MD [address] [place] [address] [place] [address] PCP - Orthopaedics 07/14/20 Aaron Arzate MD 420 [facility] [address] [place], [place] [address] PCP - General Family Medicine 10/05/20 Sarah Woods MD [address] [id number] Assigned Pulmonology Provider 09/11/20 [place] [address] [place], [place] [address] Pain Medicine 01/18/23 Vishal Roy MD [address] [place] 75[address] Pain Medicine 03/09/23 Craig Ku MD 9 [facility] - [id number] [place], [place] [address] Assigned Neuroscience Provider 10/21/23 documented as of this encounter
--- OUTSIDE RECORDS SUMMARY | 2024-05-28 18:03 | XMS_ITS | Encounter Summary ---
Author Organization [facility] Address [address] [place] [address]. [place] [address] Care Team Providers Care Race Car Driver Name Role Phone Craig Shaikh MD Unavailable [phone] Sarah Woods MD Unavailable [phone] Aaron Arzate MD Primary Care Provider Rebecca Taylor DO Unavailable Fracisco See MD Unavailable [phone] Myron Mcqueen DO Unavailable [phone] Caitie Sheth MD Unavailable Vishal Roy MD Unavailable + [phone] Rebecca Taylor DO Unavailable Craig Ku MD Unavailable [phone] Reason for Visit * Reason Comments Medication Refill Encounter Details Date Type Department Care Team (Late st Contact Info) Description [facility] [address] [place] [address] Rebecca Taylor DO RAY Medication Refill [...] file Gender Identity Female 10/12/2020 11:38 AM CAMPAIGN WORKER Sexual Orientation Not on file documented as [...] st Contact Info) Description 01/07/2025 1:30 PM CAMPAIGN WORKER Office Visit [facility] and [address] [phone] Sarah Woods MD [address] [place] [address] documented as of this encounter Visit Diagnoses Diagnosis Lumbar radiculopathy Thoracic or lumbosacral neuritis or radiculitis, unspecified documented in this encounter Care Teams Race Car Driver Relationship Specialty Start Date End Date Craig Shaikh MD [address] [place] [address] PCP - Orthopaedics 07/14/20 Aaron Arzate MD [address] [place] [address] PCP - General Family Medicine 10/05/20 Sarah Woods MD [address] [place] [address] Assigned Pulmonology Provider 09/11/20 Rebecca Taylor DO RAYUS Assigned Neuroscience Provider 04/03/22 11/11/22 Fracisco See MD [facility] [address] [place] [address] Assigned Musculoskeletal Provider 05/07/22 04/10/24 Myron Mcqueen, DO [address] [facility] [place] [address] Assigned Neuroscience Provider 11/12/22 09/08/23 [place] [address] [place] [address] Pain Medicine 01/18/23 Vishal Roy MD [address] [facility] [place] [address] Pain Medicine 03/09/23 Rebecca Taylor, DO RAYUS Assigned Neuroscience Provider 09/09/23 10/20/23 Craig Ku MD 9 [facility] [id number] [place] [address] Assigned Neuroscience Provider 10/21/23 documented as of this encounter
--- OUTSIDE RECORDS SUMMARY | 2024-05-28 18:03 | XMS_ITS | Encounter Summary ---
Author Organization [facility] Address [address] [place] [address]. [place] [address] Care Team Providers Care Western Tack Assembly Line Worker Name Role Phone Craig Shaikh MD Unavailable [phone] Sarah Woods MD Unavailable [phone] Aaron Arzate MD Primary Care Provider [phone] Fracisco See MD Unavailable [phone] Caitie Sheth MD Unavailable Vishal Roy MD Unavailable [phone] Craig Ku MD Unavailable [phone] Encounter Details Date Type Department Care Team (Late st Contact Info) Description 02/09/2024 [facility] Medical Advice [facility] [address] [place] [address] Sarah Woods MD [address] [place] [address] 276 [place] [address] Social History Tobacco Use Types [...] file Gender Identity Female 10/12/2020 11:38 AM SENIOR TEST ANALYST Sexual Orientation Not on file documented as of this encounter Plan of Treatment Upcoming Encounters Date Type Department Care Team (Late st Contact Info) Description 01/07/2025 1:30 PM SENIOR TEST ANALYST Office Visit [facility] [address] [phone] Sarah Woods MD [address] 8[address] documented as of this encounter Visit Diagnoses Not on filedocumented in this encounter Care Teams Western Tack Assembly Line Worker Relationship Specialty Start Date End Date Craig Shaikh MD [address] [place] [address], [place] [address] PCP - Orthopaedics 07/14/20 Aaron Arzate MD [address] [address]99[address] PCP - General Family Medicine 10/05/20 Sarah Woods MD [address] [address]78[address] Assigned Pulmonology Provider 09/11/20 Fracisco See MD [address] [place], [place] [address] Assigned Musculoskeletal Provider 05/07/22 04/10/24 [place] [address] [place] [facility] [place] [address] Pain Medicine 01/18/23 Vishal Roy MD [address] [address]67[address] Pain Medicine 03/09/23 Craig Ku MD 909 [facility] [id number] [address] Assigned Neuroscience Provider 10/21/23 documented as of this encounter
--- OUTSIDE RECORDS SUMMARY | 2024-05-28 18:03 | XMS_ITS | Encounter Summary ---
Author Organization [facility] Address [address] [place] [address]. [place] [address] Care Team Providers Care Assistant Professor Of Chemistry Name Role Phone Craig Shaikh MD Unavailable [phone] Sarah Woods MD Unavailable [phone] Aaron Arzate MD Primary Care Provider Beth Cedeno MD Unavailable [phone] Shanda Link PA-C Unavailable [phone] Myron Mcqueen DO Unavailable [phone] Rebecca Taylor DO Unavailable Fracisco See MD Unavailable [phone] Myron Mcqueen DO Unavailable [phone] Caitie Sheth MD Unavailable Vishal Roy MD Unavailable + [phone] Rebecca Taylor DO Unavailable Craig Ku MD Unavailable [phone] Encounter Details Date Type Department Care Team (Late st Contact Info) Description 03/25/2022 [facility] [address] [place] [phone] Rebecca Taylor DO RAY Social History Tobacco Use Types Packs/Day Years Used Date Smoking Tobacco: Never Smokeless Tobacco: Never Alcohol Use Standard Drinks/Week Comments Not Currently 0 (1 standard drink = 0.6 oz pur e alcohol) PHQ-2 Answer Date Recorded PHQ-2 Score 0 12/18/2020 Sex and Gender Information Value Date Recorded Sex Assigned at Not on file Gender Identity Female 10/12/2020 11:38 AM IMPACT RETAIL 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 No / Unsure 03/24/2022 10:40 AM CDT documented as of this encounter Plan of Treatment Upcoming Encounters Date Type Department Care Team (Late st Contact Info) Description 01/07/2025 1:30 PM IMPACT RETAIL SERVICE MERCHANDISER Office Visit [facility] and [address] [phone] Sarah Woods MD [address] [place] [address]25 documented as of this encounter Procedures Procedure Name Priority Date/Time Associated Diagnosis Comments EMG - HIM SCAN Routine 03/24/2022 documented in this encounter Results * EMG - HIM Scan (03/24/2022) Rebecca Taylor DO IP NEUR OLOGY ORDERABLES documented in this encounter Visit Diagnoses Not on filedocumented in this encounter Care Teams Assistant Professor Of Chemistry Relationship Specialty Start Date End Date Craig Shaikh MD [address] [address] PCP - Orthopaedics 07/14/20 Aaron Arzate MD [address] [place] [address]12875 PCP - General Family Medicine 10/05/20 Sarah Woods MD [address] [place] [address] 276 [place] [address] Assigned Pulmonology Provider 09/11/20 Beth Cedeno MD 909 [place] [address] Assigned Cancer Care Provider 12/06/20 06/03/22 Shanda Link PARubénC 9 [place] [address] Assigned Musculoskeletal Provider 12/19/21 05/06/22 Myron Mcqueen DO [address]47 [place], [place] [address] Assigned Neuroscience Provider 03/27/22 04/02/22 Rebecca Taylor DO RAYUS Assigned Neuroscience Provider 04/03/22 11/11/22 Fracisco See MD [address] [place] [address]994 Assigned Musculoskeletal Provider 05/07/22 04/10/24 Myron Mcqueen DO 1747 [place] [address] Assigned Neuroscience Provider 11/12/22 09/08/23 [place] [address] [facility] 478[address] Pain Medicine 01/18/23 Vishal Roy MD 6545 [facility] [place] [place] [address] Pain Medicine 03/09/23 Rebecca Taylor DO LINUS Assigned Neuroscience Provider 09/09/23 10/20/23 Craig Ku MD 9 [facility] [id number] [address] Assigned Neuroscience Provider 10/21/23 documented as of this encounter
--- OUTSIDE RECORDS SUMMARY | 2024-05-28 18:03 | XMS_ITS | Referral Summary ---
Author Organization [facility] Address [address] [place] [address]. [place] [address] Care Team Providers Care Environmental Lead Name Role Phone Craig Shaikh MD Unavailable [phone] Sarah Woods MD Unavailable [phone] Aaron Arzate MD Primary Care Provider [phone] Caitie Sheth MD Unavailable Vishal Roy MD Unavailable + [phone] Craig Ku MD Unavailable [phone] Encounters Date Type Department Care Team Description 05/28/[address] [facility] Lung Science [address] [phone] Sarah Woods MD Call Back 04/26/[address] [facility] Lung Science [address] [address] Sarah Woods MD Medication Refill [...] Overview: Added automatically from request for surgery [id number] Foraminal stenosis of lumbar region 07/21/2020 Overview: Added automatically from request for surgery [id number] Elevated coronary artery calcium score 9 Sesamoiditis [...] file Gender Identity Female 10/12/2020 11:38 AM ENVELOPE ADDRESSER Sexual Orientation Not on file Last Filed Vital Signs Vital Sign Reading Time Taken Comments Blood Pressure 143/84 10/16/2023 10:18 AM ENVELOPE ADDRESSER Pulse 76 01/09/2024 3:02 PM ENVELOPE ADDRESSER Temperature 36.8 ??C (98.2 ??F) 09/20/2022 11:15 AM C DT Respiratory Rate 16 10/16/2023 10:18 AM ENVELOPE ADDRESSER Oxygen Saturation 97% 01/09/2024 3:02 PM ENVELOPE ADDRESSER Inhaled Oxygen Concentration - - Weight 83.9 kg (185 lb) 10/16/2023 10:18 AM ENVELOPE ADDRESSER Height 160 cm (5' 3) 10/16/2023 10:18 AM ENVELOPE ADDRESSER Body Mass Index 32.77 10/16/2023 10:18 AM ENVELOPE ADDRESSER Plan of Treatment Upcoming Encounters Date Type Department Care Team (Late st Contact Info) Description 01/07/2025 1:30 PM ENVELOPE ADDRESSER Office Visit [facility] [address] [address] Sarah Woods MD [address] [place] [address] Medical Devices Implanted Type Area Sales And In Home Delivery Specialist Device Identifier Shelf Expiration Date Model / Serial / Lot Graft Bone Crush Canc 30ml [id number] Implanted:Qty : 1 on 09/21/2020 by Fracisco See MD at [facility] Bone/Tissu e/Biologic N/A: Spine Lumbar MUSCULOSKELETAL OBANDO 07/13/2023 [id number] / [id number] / Graft Bone Crush Canc 30ml [id number] Implanted:Qty : 1 on 09/21/2020 by Fracisco See MD at [facility] Bone/Tissu e/Biologic N/A: Spine Lumbar MUSCULOSKELETAL OBANDO 07/08/2023 [id number] / [id number] / Imp Scr Medt 5.5/6.0mm Solera 6.5x40mm Ma [id number] Implanted:Qty : 2 on 09/21/2020 by Fracisco See MD at [facility] Metallic Hardware/A nchor N/A: Spine Lumbar [employer] [id number] / / [id number] Imp Scr Medt 5.5/6.0mm Solera 6.5x30mm Ma [id number] Implanted:Qty : 1 on 09/21/2020 by Fracisco See MD at [facility] Metallic Hardware/A nchor N/A: Spine Lumbar [employer] [id number] / / [id number] Imp Scr Medt 5.5/6.0mm Solera 5.5x45mm Ma [id number] Implanted:Qty : 1 on 09/21/2020 by Fracisco See MD at [facility] Metallic Hardware/A nchor N/A: Spine Lumbar [employer] [id number] / / [id number] Imp Scr Medt 5.5/6.0mm Solera 5.5x40mm Ma [id number] Implanted:Qty : 2 on 09/21/2020 by Fracisco See MD at [facility] Metallic Hardware/A nchor N/A: Spine Lumbar [employer] [id number] / / [id number] Imp Connector Medt [place] Closed 5.5mm [id number] Implanted:Qty : 2 on 09/21/2020 by Fracisco See MD at [facility] Metallic Hardware/A nchor N/A: Spine Lumbar [employer] [id number] / / Imp Connector Torres Medt 5.5mm [id number] Implanted:Qty : 2 on 09/21/2020 by Fracisco See MD at [facility] Metallic Hardware/A nchor N/A: Spine Lumbar [employer] [id number] / / Imp Scr Set Torres Medt 5.5 To 5.5mm [id number] Implanted:Qty : 8 on 09/21/2020 by Fracisco See MD at [facility] Metallic Hardware/A nchor N/A: Spine Lumbar [employer] [id number] / / Imp Matias Medt Solera Lined 5.0o556qr [facility] [id number] Implanted:Qty : 2 on 09/21/2020 by Fracisco See MD at [facility] Metallic Hardware/A nchor N/A: Spine Lumbar [employer] [id number] / / Imp Scr Set Medt Solera Break Off 5.5mm Ti [id number] Implanted:Qty : 10 on 09/21/2020 by Fracisco See MD at [facility] Metallic Hardware/A nchor N/A: Spine Lumbar [employer] [id number] / / [id number] Imp Scr Medt 5.5/6.0mm Solera 7.5x45mm Ma [id number] Implanted:Qty : 1 on 09/21/2020 by Fracisco See MD at [facility] Metallic Hardware/A nchor N/A: Spine Lumbar [employer] [id number] / / [id number] Imp Scr Medt 5.5/6.0mm Solera 7.5x35mm Ma [id number] Implanted:Qty : 1 on 09/21/2020 by Fracisco See MD at [facility] Metallic Hardware/A nchor N/A: Spine Lumbar [employer] [id number] / / [id number] Ifuse Implant System 7.0mm X 90 Mm Implant Implanted:Qty : 1 on 09/21/2020 by Fracisco See MD at [facility] Right: Sacrum [employer] 11/04/2024 7090M-90 / / [id number] Description:SI Joint Ifuse Implant System 7.0mm X 90 Mm Implant Implanted:Qty : 1 on 09/21/2020 by Fracisco See MD at [facility] Left: Sacrum [employer] 03/11/2055 7090M-90 / / [id number] Description:SI Joint 9.5 X 100 Ballast Screw Implanted:Qty : 2 on 09/21/2020 by Fracisco See MD at [facility] N/A: Spine Lumbar [id number] / / Explanted Type Area Sales And In Home Delivery Specialist Device Identifier Shelf Expiration Date Model / Serial / Lot Imp Scr Medt 5.5/6.0mm Solera 6.5x40mm Ma [id number] Explanted:Qty: 1 on 09/21/2020 by Fracisco See MD at [facility] Metallic Hardware/An chor N/A: Spine Lumbar [employer] [id number] / / [id number] Imp Scr Medt 5.5/6.0mm Solera 7.5x45mm Ma [id number] Explanted:Qty: 1 on 09/21/2020 by Fracisco See MD at [facility] Metallic Hardware/An chor N/A: Spine Lumbar [employer] [id number] / / Imp Scr Medt 5.5/6.0mm Solera 5.5x45mm Ma [id number] Explanted:Qty: 1 on 09/21/2020 by Fracisco See MD at [facility] Metallic Hardware/An chor N/A: Spine Lumbar [employer] [id number] / / [id number] Imp Scr Medt 5.5/6.0mm Solera 5.5x40mm Ma [id number] Explanted:Qty: 1 on 09/21/2020 by Fracisco See MD at [facility] Metallic Hardware/An chor N/A: Spine Lumbar [employer] [id number] / / [id number] Imp Scr Medt 5.5/6.0mm Solera 6.5x30mm Ma [id number] Explanted:Qty: 1 on 09/21/2020 by Fracisco See MD at [facility] Metallic Hardware/An chor N/A: Spine Lumbar [employer] [id number] / / [id number]-S1 Posterior Spine Explants Explanted:Qty: 1 on 09/21/2020 by Fracisco See MD at [facility] Bilateral : Spine Lumbar Procedures Procedure Name Priority Date/Time Associated Diagnosis Comments BASIC METABOLIC PANEL Routine 09/28/2020 6:25 AM ENVELOPE ADDRESSER Pneumonia due to 2019 novel coronavirus DX PERIPHERAL WRIST Routine 07/16/2020 1 :09 PM CDT Other specified disorders of bone density and structure, other site MAMMOGRAM - HIM SCAN 07/18/2019 12:00 AM CDT from Last 3 Months or Most Recently Relevant to Health Maintenance Results * (ABNORMAL) Basic metabolic panel (09/28/2020 6:25 AM ENVELOPE ADDRESSER) Sodium 141 133 - 144 mmol/L 09/28/2020 7:05 AM ENVELOPE ADDRESSER [facility] Potassium 4.0 3.4 - 5.3 mmol/L 09/28/2020 7:05 AM ENVELOPE ADDRESSER [facility] Chloride 110(H) 94 - 109 mmol/L 09/28/2020 7:05 AM ENVELOPE ADDRESSER [facility] Carbon Dioxide 25 20 - 32 mmol/L 09/28/2020 7:10 AM ENVELOPE ADDRESSER [facility] Anion Gap 6 3 - 14 mmol/L 09/28/2020 7:10 AM ENVELOPE ADDRESSER [facility] Glucose 116(H) 70 - 99 mg/dL 09/28/2020 7:10 AM ENVELOPE ADDRESSER [facility] Urea Nitrogen 11 7 - 30 mg/dL 09/28/2020 7:10 AM ENVELOPE ADDRESSER [facility] Creatinine 0.53 0.52 - 1.04 mg/dL 09/28/2020 7:10 AM ENVELOPE ADDRESSER [facility] GFR Estimate >90 >60 mL/min/{1. 73_m2} 09/28/2020 7:10 AM ENVELOPE ADDRESSER [facility] Comment: Non GFR Calc Starting 11/06/2018, serum creatinine based estimated GFR (eGFR) will be calculated using the Chronic Kidney Disease Epidemiology Collaboration (CKD-EPI) equation. GFR Estimate If Black >90 >60 mL/min/{1. 73_m2} 09/28/2020 7:10 AM ENVELOPE ADDRESSER [facility] Comment: GFR Calc Starting 11/06/2018, serum creatinine based estimated GFR (eGFR) will be calculated using the Chronic Kidney Disease Epidemiology Collaboration (CKD-EPI) equation. Calcium 8.6 8.5 - 10.1 mg/dL 09/28/2020 7:10 AM ENVELOPE ADDRESSER [facility] Blood specimen (specimen) 09/28/2020 6:25 AM ENVELOPE ADDRESSER 09/28/2020 6:26 AM ENVELOPE ADDRESSER Rajat Moreland MD LAB - BLOOD ORDERABL ES U PAULINE Castrejon [facility] * Dexa wrist heel (07/16/2020 1:09 PM CDT) Anatomical Region Laterality Modality Dexa Bone Mineral Den sity Narrative 07/20/2020 10:05 AM CDT Results are reported under DXA scan report for the hip/spine performed on the same day. Principal result cement and concrete plant worker: Dante Ocampo MD, CCD Division of Diabetes, Endocrinology and Metabolism [facility] [phone] Fracisco See MD IMG DEXA ORDERABLES * MAMMOGRAM - HIM SCAN (07/18/2019 12:00 AM CDT) Anatomical Region Laterality Modality Other 07/18/2019 Provider Outside IMG MAMMOGRAPHY KARLIE LEWIS from Last 3 Months or Most Recently Relevant to Health Maintenance Advance Directives For more information, please contact: [phone] * Full Code (Latest Code Status on File) Date Activated Date Inactivated Comments 09/21/2020 9:01 PM 09/30/2020 6:25 PM All basic a nd advanced life-sustaining interventions are performed as appropriate Question Answer Comments Code status determined by: Discussion with patie nt/ legal decision maker Care Teams Environmental Lead Relationship Specialty Start Date End Date Craig Shaikh MD [address] [address] PCP - Orthopaedics 07/14/20 Aaron Arzate MD [address] [facility] [address] [place], [place] [address] PCP - General Family Medicine 10/05/20 Sarah Woods MD [address] [facility] [address] [place], [place] [id number] Assigned Pulmonology Provider 09/11/20 [place] [address] [address] Pain Medicine 01/18/23 Vishal Roy MD [address] [place], [place] [address] Pain Medicine 03/09/23 Craig Ku MD [address] [facility] [id number] [place], [place] [address] Assigned Neuroscience Provider 10/21/23
--- OUTSIDE RECORDS SUMMARY | 2024-05-28 18:04 | XMS_ITS | Encounter Summary ---
Author Organization [facility] Address [address] [place] [address] Care Team Providers Care Structural Design Engineer Name Role Phone May Solo Primary Care Provider Unavailab Craig Rodriguez MD Unavailable [phone] Fracisco See MD Unavailable [phone] Brian Watkins MD Unavailable [phone] Sarah Woods MD Unavailable [phone] Aaron Arzate MD Primary Care Provider [phone] Beth Cedeno MD Unavailable [phone] Shanda Link PA-C Unavailable [phone] Fracisco See MD Unavailable [phone] Shanda Link PA-C Unavailable [phone] Myron Mcqueen DO Unavailable [phone] Rebecca Taylor DO Unavailable Fracisco See MD Unavailable [phone] Myron Mcqueen DO Unavailable [phone] Caitie Sheth MD Unavailable Vishal Roy MD Unavailable + [phone] Rebecca Taylor DO Unavailable Craig Ku MD Unavailable [phone] Reason for Referral * Diagnostic Imaging CT Scan (Routine) - Closed Specialty Diagnoses / Procedures Referred By Contac t Referred To Contact Radiology. Diagnoses Lung nodule Procedures CT Chest w/o Contrast Sarah Woods MD [address] [place] [address] Scan [facility] [address] [facility] [address] [place] [address] Referral ID Status Reason Start Date Expiration Date Visits Re quested Visits Authorized [id number] Closed 09/19/2019 09/18/2020 1 1 Reason for Visit * Reason Onset Date Comments Call Back 09/19/2019 Encounter Details Date Type Department Care Team (Late st Contact Info) Description 09/19/2019 Telephone [facility] [address] [phone] Sarah Woods MD [address] [place] [address] Call Back Social History Tobacco Use Types Packs/Day Years Used Date Smoking Tobacco: Never Smokeless Tobacco: Never PHQ-2 Answer Date Recorded PHQ-2 Score 0 08/27/2019 Sex and Gender Information Value Date Recorded Sex Assigned at Not on file Gender Identity Female 10/12/2020 11:38 AM CUSHION MAT MAKER Sexual Orientation Not on file documented as [...] Cristine Horowitz - 09/19/2019 2:15 PM CDT [facility] Call Center Phone Message May a [...] st Contact Info) Description 01/07/2025 1:30 PM CUSHION MAT MAKER Office Visit [facility] [address] [phone] [place] [address] Sarah Woods MD [address] [place] [phone] documented as of this encounter Results * CT Chest w/o Contrast (10/23/2019 9:35 AM CUSHION MAT MAKER) Anatomical Region Laterality Modality Chest, SUBRAD CT BODY, UMP CT CHEST, RAD CT Computed Tomography Impressions 10/23/2019 1:33 PM CUSHION MAT MAKER IMPRESSION: Stable pulmonary nodules. Recommendations for an [...] ADARSH HERRERA MD Narrative 10/23/2019 1:[address] CHEST WITHOUT CONTRAST October 23, 2019 [...] Out COVID-19 09/24/2020 09/24/2020 09/25/2020 11:20 AM CUSHION MAT MAKER Rule Out COVID-19 09/26/2020 09/26/2020 09/27/2020 12:59 PM CUSHION MAT MAKER COVID-19 09/26/2020 09/26/2020 10/17/2020 11:4 1 PM CUSHION MAT MAKER documented as of this encounter Care Teams Structural Design Engineer Relationship Specialty Start Date End Date May Solo PCP - General 05/07/12 10/04/20 Craig Shaikh MD [address] [address] PCP - Orthopaedics 07/14/20 Aaron Arzate MD [address] [address] PCP - General Family Medicine 10/05/20 Fracisco See MD [address] [address] Assigned Musculoskeletal Provider 09/11/20 05/01/21 Brian Watkins MD [address] [facility] [address] [place], [place] [address] Assigned Surgical Provider 09/11/2003/27/21 Sarah Woods MD [address] [facility] [address] [place], [place] [address] Assigned Pulmonology Provider 09/11/20 Beth Cedeno MD [address] [place] [address] Assigned Cancer Care Provider 12/06/20 06/03/22 Shanda Link PA-C [address] [place] [address] Assigned Musculoskeletal Provider 05/02/21 10/09/21 Fracisco See MD [address] [address] Assigned Musculoskeletal Provider 10/10/21 12/18/21 Shanda Link PA-C [address] [place] [address] [phone] Assigned Musculoskeletal Provider 12/19/21 05/06/22 Myron Mcqueen DO [address] [place] [id number] Assigned Neuroscience Provider 03/27/22 04/02/22 Rebecca Taylor DO RAYUS Assigned Neuroscience Provider 04/03/22 11/11/22 Fracisco See MD [facility] [place], [place] [address] Assigned Musculoskeletal Provider 05/07/22 04/10/24 Myron Mcqueen DO [address] [place] [id number] Assigned Neuroscience Provider 11/12/22 09/08/23 [place] [address] [place], [place] [address] Pain Medicine 01/18/23 Vishal Roy MD [address] [place] [address] Pain Medicine 03/09/23 Rebecca Taylor DO RAYUS Assigned Neuroscience Provider 09/09/23 10/20/23 Craig Ku MD [address] [facility] [address] - [id number] [place], [place] [address] Assigned Neuroscience Provider 10/21/23 documented as of this encounter
--- OUTSIDE RECORDS SUMMARY | 2024-05-28 18:04 | XMS_ITS | Encounter Summary ---
Author Organization [facility] Address [address] [place] [address] Care Team Providers Care Industrial Engineer Name Role Phone May Solo Primary Care Provider Unavailab Craig Rodriguez MD Unavailable [phone] Fracisco See MD Unavailable [phone] Brian Watkins MD Unavailable [phone] Sarah Woods MD Unavailable [phone] Aaron Arzate MD Primary Care Provider Beth Cedeno MD Unavailable [phone] Shanda Link PA-C Unavailable [phone] Fracisco See MD Unavailable [phone] Shanda Link PA-C Unavailable [phone] Myron Mcqueen DO Unavailable [phone] Rebecca Taylor DO Unavailable Fracisco See MD Unavailable [phone] Myron Mcqueen DO Unavailable [phone] Caitie Sheth MD Unavailable Vishal Roy MD Unavailable + [phone] Rebecca Taylor DO Unavailable Craig Ku MD Unavailable [phone] Encounter Details Date Type Department Care Team (Late st Contact Info) Description 11/15/2019 MyC Medical Advice [facility] Lung Science and Health [address] [phone] Sarah Woods MD [address] [place] [phone] Social History Tobacco Use Types Packs/Day Years Used Date Smoking Tobacco: Never Smokeless Tobacco: Never PHQ-2 Answer Date Recorded PHQ-2 Score 0 08/27/2019 Sex and Gender Information Value Date Recorded Sex Assigned at Not on file Gender Identity Female 10/12/2020 11:38 AM YARD ATTENDANT Sexual Orientation Not on file documented as of this encounter Miscellaneous Notes * Telephone Encounter - Jocelyn Avila - 11/18/2019 8:47 AM CST Spoke with pt and she stated she had the Holter Monitor done at [facility]. Provided their number to call to get results. ATTENDANT documented in this encounter Plan of Treatment Upcoming Encounters Date Type Department Care Team (Late st Contact Info) Description 01/07/2025 1:30 PM YARD ATTENDANT Office Visit [facility] Science [facility] [address] [phone] Sarah Woods MD [address] [place] [phone] documented as of this encounter Visit Diagnoses Not on filedocumented in this encounter Additional Health Concerns Infection Onset Date Last Indicated Resolved Time Rule Out COVID-19 09/24/2020 09/24/2020 09/25/2020 11:20 AM YARD ATTENDANT Rule Out COVID-19 09/26/2020 09/26/2020 09/27/2020 12:59 PM YARD ATTENDANT COVID-19 09/26/2020 09/26/2020 10/17/2020 11:4 1 PM YARD ATTENDANT documented as of this encounter Care Teams Industrial Engineer Relationship Specialty Start Date End Date May Solo PCP - General 05/07/12 10/04/20 Craig Shaikh MD [address] [place] [address] [place] [address] PCP - Orthopaedics 07/14/20 Aaron Arzate MD [address] [place] [id number] PCP - General Family Medicine 10/05/20 Fracisco See MD [address] [place] [id number] Assigned Musculoskeletal Provider 09/11/20 05/01/21 Brian Watkins MD [address] [place] [address] [phone] Assigned Surgical Provider 09/11/2003/27/21 Sarah Woods MD [address] [place] [address] [phone] Assigned Pulmonology Provider 09/11/20 Beth Cedeno MD [address] [place] [address] [phone] Assigned Cancer Care Provider 12/06/20 06/03/22 Shanda Link PA-C [address] [place] [address] Assigned Musculoskeletal Provider 05/02/21 10/09/21 Fracisco See MD [facility] [address] [phone] Assigned Musculoskeletal Provider 10/10/21 12/18/21 Shanda Link PA-C [address]09 [place] [address] Assigned Musculoskeletal Provider 12/19/21 05/06/22 Myron Mcqueen DO [address] [facility] [place] [address] Assigned Neuroscience Provider 03/27/22 04/02/22 Rebecca Taylor DO RAYUS Assigned Neuroscience Provider 04/03/22 11/11/22 Fracisco See MD [address] [place] [address] Assigned Musculoskeletal Provider 05/07/22 04/10/24 Myron Mcqueen DO [address]47 [place] [address] Assigned Neuroscience Provider 11/12/22 09/08/23 [place] [address] [place] [address] Pain Medicine 01/18/23 Vishal Roy MD [address] 349815 Pain Medicine 03/09/23 Rebecca Taylor DO RAYUS Assigned Neuroscience Provider 09/09/23 10/20/23 Craig Ku MD 909 [facility] [place] [id number] [address] Assigned Neuroscience Provider 10/21/23 documented as of this encounter
--- OUTSIDE RECORDS SUMMARY | 2024-05-28 18:04 | XMS_ITS | Encounter Summary ---
Author Organization [place] Address [address] [place] [address] Care Team Providers Care Metal Lather Name Role Phone May Solo Primary Care Provider Unavailab Craig Rodriguez MD Unavailable [phone] Fracisco See MD Unavailable [phone] Brian Watkins MD Unavailable [phone] Sarah Woods MD Unavailable [phone] Aaron Arzate MD Primary Care Provider Beth Cedeno MD Unavailable [phone] Shanda Link PA-C Unavailable [phone] Fracisco See MD Unavailable +[phone] Shanda Link PA-C Unavailable [phone] Myron Mcqueen DO Unavailable [phone] Rebecca Taylor DO Unavailable Fracisco See MD Unavailable [phone] Myron Mcqueen DO Unavailable [phone] Caitie Sheth MD Unavailable Vishal Roy MD Unavailable + [phone] Rebecca Taylor DO Unavailable Craig Ku MD Unavailable +[phone] Encounter Details Date Type Department Care Team (Late st Contact Info) Description 08/26/2020 MyC Medical Advice [facility] Pre[facility] Assessment [facility] [address] [place] [phone] Radha Greene, RN Social History Tobacco Use Types Packs/Day Years Used Date Smoking Tobacco: Never Smokeless Tobacco: Never Alcohol Use Standard Drinks/Week Comments Not Currently 0 (1 standard drink = 0.6 oz pur e alcohol) PHQ-2 Answer Date Recorded PHQ-2 Score 0 08/27/2019 Sex and Gender Information Value Date Recorded Sex Assigned at Not on file Gender Identity Female 10/12/2020 11:38 AM PYROMETER TEMPERATURE REGULATOR Sexual Orientation Not on file COVID-19 Exposure Response Date Recorded In the last month, have you been in contact with someone who was confirmed or suspected to have Coronavirus / COVID-19? No / Unsure 07/29/2020 12:52 PM CDT documented as of this encounter Plan of Treatment Upcoming Encounters Date Type Department Care Team (Late st Contact Info) Description 01/07/2025 1:30 PM PYROMETER TEMPERATURE REGULATOR Office Visit [facility] [address] [phone] Sarah Woods MD [address] [place] [address] documented as of this encounter Visit Diagnoses Not on filedocumented in this encounter Additional Health Concerns Infection Onset Date Last Indicated Resolved Time Rule Out COVID-19 09/24/2020 09/24/2020 09/25/2020 11:20 AM PYROMETER TEMPERATURE REGULATOR Rule Out COVID-19 09/26/2020 09/26/2020 09/27/2020 12:59 PM PYROMETER TEMPERATURE REGULATOR COVID-19 09/26/2020 09/26/2020 10/17/2020 11:4 1 PM PYROMETER TEMPERATURE REGULATOR documented as of this encounter Care Teams Metal Lather Relationship Specialty Start Date End Date May Solo PCP - General 05/07/12 10/04/20 Craig Shaikh MD [address] [address] PCP - Orthopaedics 07/14/20 Aaron Arzate MD [address] [place] [address]86[address] PCP - General Family Medicine 10/05/20 Fracisco See MD [address] [place] [address] Assigned Musculoskeletal Provider 09/11/20 05/01/21 Brian Watkins MD [address] [place] [address] Assigned Surgical Provider 09/11/2003/27/21 Sarah Woods MD [address] [place] [address] 11984 Assigned Pulmonology Provider 09/11/20 Beth Cedeno MD [address] [place] [address] Assigned Cancer Care Provider 12/06/20 06/03/22 Shanda Link PA-C [address] [place] [address] Assigned Musculoskeletal Provider 05/02/21 10/09/21 Fracisco See MD [address] [place] [address] Assigned Musculoskeletal Provider 10/10/21 12/18/21 Shanda Link PA-C [address] [place] [address] 29842 Assigned Musculoskeletal Provider 12/19/21 05/06/22 Myron Mcqueen DO [address] [place] [address] Assigned Neuroscience Provider 03/27/22 04/02/22 Rebecca Taylor DO RAYUS Assigned Neuroscience Provider 04/03/22 11/11/22 Fracisco See MD [address] [place] [address] Assigned Musculoskeletal Provider 05/07/22 04/10/24 Myron Mcqueen DO [address] [place] [address] Assigned Neuroscience Provider 11/12/22 09/08/23 [place] [address] [address] Pain Medicine 01/18/23 Vishal Roy MD 6545 [facility] [place] [address] Pain Medicine 03/09/23 Rebecca Taylor DO RAYUS Assigned Neuroscience Provider 09/09/23 10/20/23 Craig Ku MD 909 [facility] [id number] [place], [place] 862285 Assigned Neuroscience Provider 10/21/23 documented as of this encounter
--- OUTSIDE RECORDS SUMMARY | 2024-05-28 18:04 | XMS_ITS | Encounter Summary ---
Author Organization [facility] Address [address] [place] [address]. [place] [address] Care Team Providers Care Count Room Clerk Name Role Phone Craig Shaikh MD Unavailable [phone] Sarah Woods MD Unavailable [phone] Aaron Arzate MD Primary Care Provider Beth Cedeno MD Unavailable [phone] Shanda Link PA-C Unavailable [phone] Fracisco See MD Unavailable Shanda Link PA-C Unavailable [phone] Myron Mcqueen DO Unavailable [phone] Rebecca Taylor DO Unavailable Fracisco See MD Unavailable [phone] Myron Mcqueen DO Unavailable [phone] Caitie Sheth MD Unavailable Vishal Roy MD Unavailable + [phone] Rebecca Taylor DO Unavailable Craig Ku MD Unavailable [phone] Encounter Details Date Type Department Care Team (Late st Contact Info) Description 09/30/2021 [facility] [place] 929269 [facility] [address]th [place] [phone] Saira Felipe LPN Social History Tobacco Use Types Packs/Day Years Used Date Smoking Tobacco: Never Smokeless Tobacco: Never Alcohol Use Standard Drinks/Week Comments Not Currently 0 (1 standard drink = 0.6 oz pur e alcohol) PHQ-2 Answer Date Recorded PHQ-2 Score 0 12/18/2020 Sex and Gender Information Value Date Recorded Sex Assigned at Not on file Gender Identity Female 10/12/2020 11:38 AM BINDING CUTTER Sexual Orientation Not on file documented as of this encounter Plan of Treatment Upcoming Encounters Date Type Department Care Team (Late st Contact Info) Description 01/07/2025 1:30 PM BINDING CUTTER Office Visit [facility] [address] [phone] Sarah Woods MD [address] [place] [address] 312835 documented as of this encounter Visit Diagnoses Not on filedocumented in this encounter Care Teams Count Room Clerk Relationship Specialty Start Date End Date Craig Shaikh MD [address] [place] [address] PCP - Orthopaedics 07/14/20 Aaron Arzate MD [address] [place] [address] 386285 PCP - General Family Medicine 10/05/20 Sarah Woods MD [address] [place] [address] 258795 Assigned Pulmonology Provider 09/11/20 Beth Cedeno MD [address] [place] [address] 294295 Assigned Cancer Care Provider 12/06/20 06/03/22 Shanda Link PA-C 909 [place] [address] Assigned Musculoskeletal Provider 05/02/21 10/09/21 Fracisco See MD [address] [place] [address] Assigned Musculoskeletal Provider 10/10/21 12/18/21 Shanda Link PA-C 9 [place] [address] Assigned Musculoskeletal Provider 12/19/21 05/06/22 Myron Mcqueen DO [address] [facility] [place] [address] Assigned Neuroscience Provider 03/27/22 04/02/22 Rebecca Taylor DO RAYUS Assigned Neuroscience Provider 04/03/22 11/11/22 Fracisco See MD [address] [address] Assigned Musculoskeletal Provider 05/07/22 04/10/24 Myron Mcqueen DO [address] [place] [address] Assigned Neuroscience Provider 11/12/22 09/08/23 [place] [address] [place] [address] Pain Medicine 01/18/23 Vishal Roy MD [address] [place] [address] Pain Medicine 03/09/23 Rebecca Taylor DO LINUS Assigned Neuroscience Provider 09/09/23 10/20/23 Craig Ku MD 909 [facility] [id number] [place] [address] Assigned Neuroscience Provider 10/21/23 documented as of this encounter
--- OUTSIDE RECORDS SUMMARY | 2024-05-28 18:04 | XMS_ITS | Encounter Summary ---
Author Organization [place] Address [address] [place] [address] Care Team Providers Care Die Storage Worker Name Role Phone May Solo Primary Care Provider Unavailab Craig Rodriguez MD Unavailable [phone] Fracisco See MD Unavailable [phone] Brian Watkins MD Unavailable [phone] Sarah Woods MD Unavailable [phone] Aaron Arzate MD Primary Care Provider [phone] Beth Cedeno MD Unavailable [phone] Shanda Link PA-C Unavailable [phone] Fracisco See MD Unavailable [phone] Shanda Link PA-C Unavailable [phone] Myron Mcqueen DO Unavailable [phone] Rebecca Taylor DO Unavailable Fracisco See MD Unavailable [phone] Myron Mcqueen DO Unavailable [phone] Caitie Sheth MD Unavailable Vishal Roy MD Unavailable + [phone] Rebecca Taylor DO Unavailable Craig Ku MD Unavailable [phone] Reason for Referral * Diagnostic Imaging CT Scan (Routine) - Closed Specialty Diagnoses / Procedures Referred By Contac t Referred To Contact Radiology. Diagnoses Diaphragm paralysis Procedures CT Chest w contrast* Sarah Woods MD [address] [place] [address] [facility] [address] [facility] [address] [place] [address] Referral ID Status Reason Start Date Expiration Date Visits Re quested Visits Authorized [id number] Closed 09/02/2019 09/01/2020 1 1 Reason for Visit * Reason Onset Date Comments Orders 08/29/2019 CT Chest w/ Cont rast, PFTs Encounter Details Date Type Department Care Team (Late st Contact Info) Description 08/29/2019 Telephone [facility] [address] [phone] Sarah Woods MD [address] [place] [address] [phone] Orders (CT Chest w/ Contrast, PFTs) Social History Tobacco Use Types Packs/Day Years Used Date Smoking Tobacco: Never Smokeless Tobacco: Never PHQ-2 Answer Date Recorded PHQ-2 Score 0 08/27/2019 Sex and Gender Information Value Date Recorded Sex Assigned at Not on file Gender Identity Female 10/12/2020 11:38 AM CONTAINERS SALES REPRESENTATIVE Sexual Orientation Not on file documented as [...] Message routed to: [facility] [place] [facility] * Telephone Encounter - [...] Message routed to: [facility] ([facility]): [facility] * Telephone Encounter - Shayan Snyder - [...] routed to: [facility] ([facility]): [facility] documented in this encounter Plan of Treatment Upcoming Encounters Date Type Department Care Team (Late st Contact Info) Description 01/07/2025 1:30 PM CONTAINERS SALES REPRESENTATIVE Office Visit [facility] 909 [place] [address] Sarah Woods MD [address] [place] [address] documented as of this encounter Results * Pulmonary Function Test (09/05/2019 2:30 PM CDT) FVC-Pred 2.97 L BREEZE PFT FVC-Pre 2.27 L [place]REEZE PFT FVC-%Pred-Pre 76 % [place]ZE PFT FEV1-Pre 1.82 L [place] PFT FEV1-%Pred-Pre 78 % [place] PFT [id number]-Uvop 78 % [place] PFT [id number]-Hrt 80 % [place]ZE PFT FEFMax-Pred 5.87 L/sec BREEZE PFT FEFMax-Pre 6.93 L/sec BREEZE PFT FEFMax-%Pred-Pr e 118 % BREEZE PFT [id number]-Yxtp 1.97 L/sec [place]REEZE PFT QBU2335-Ocz 1.72 L/sec BREEZE PFT NQB7975-%Pred-P re 87 % BREEZE PFT LRK9547-Qemx 0.37 L/sec BREEZE PFT OBU3660-%Pred-P ost 18 % BREEZE PFT ExpTime-Pre 7.07 sec BREEZE PFT FIFMax-Pre 4.48 L/sec [place]REEZE PFT HKJ2PWK9-Rcfe 79 % B[place]ZE PFT [id number]-Bfc 80 % BREEZE PFT 09/05/2019 2:30 PM [...] Out COVID-19 09/24/2020 09/24/2020 09/25/2020 11:20 AM CONTAINERS SALES REPRESENTATIVE Rule Out COVID-19 09/26/2020 09/26/2020 09/27/2020 12:59 PM CONTAINERS SALES REPRESENTATIVE COVID-19 09/26/2020 09/26/202010/17/2020 11:4 1 PM CONTAINERS SALES REPRESENTATIVE documented as of this encounter Care Teams Die Storage Worker Relationship Specialty Start Date End Date May Solo PCP - General 05/07/12 10/04/20 Craig Shaikh MD [address] [place] [address] PCP - Orthopaedics 07/14/20 Aaron Arzate MD 420 [facility] [address] [place], [place] 691225 PCP - General Family Medicine 10/05/20 Fracisco See MD [address] [place] [address] R200 [place], [place] 046424 Assigned Musculoskeletal Provider 09/11/20 05/01/21 Brian Watkins MD 420 [facility] 207 [place], [place] 070335 Assigned Surgical Provider 09/11/2003/27/21 Sarah Woods MD [address] [place] [address] 276 [place], [place] 136695 Assigned Pulmonology Provider 09/11/20 Beth Cedeno MD [address] [place] [address] 384435 Assigned Cancer Care Provider 12/06/20 06/03/22 Shanda Link PA-C [address] [place] [address] 911995 Assigned Musculoskeletal Provider 05/02/21 10/09/21 Fracisco See MD [address] [facility] [address] [place] [address] Assigned Musculoskeletal Provider 10/10/21 12/18/21 Shanda Link PA-C 909 [place] [address] Assigned Musculoskeletal Provider 12/19/21 05/06/22 Myron Mcqueen DO 1747 [facility] [place] [address] Assigned Neuroscience Provider 03/27/22 04/02/22 Rebecca Taylor DO RAYUS Assigned Neuroscience Provider 04/03/22 11/11/22 Fracisco See MD [facility] [address] [place] [address] Assigned Musculoskeletal Provider 05/07/22 04/10/24 Myron Mcqueen DO 1747 [place] [address] Assigned Neuroscience Provider 11/12/22 09/08/23 [place] [address] [address] [place] 208247 Pain Medicine 01/18/23 Vishal Roy MD [address] [place] [address] Pain Medicine 03/09/23 Rebecca Taylor DO RAYUS Assigned Neuroscience Provider 09/09/23 10/20/23 Craig Ku MD 9 [facility] [id number] [address] Assigned Neuroscience Provider 10/21/23 documented as of this encounter
--- OUTSIDE RECORDS SUMMARY | 2024-05-28 18:04 | XMS_ITS | Encounter Summary ---
Author Organization [place] Address [address] [place] [address] Care Team Providers Care Dry Cleaner Apprentice Name Role Phone Craig Shaikh MD Unavailable [phone] Fracisco See MD Unavailable [phone] Brian Watkins MD Unavailable [phone] Sarah Woods MD Unavailable [phone] Aaron Arzate MD Primary Care Provider Beth Cedeno MD Unavailable [phone] Shanda Link PA-C Unavailable [phone] Fracisco See MD Unavailable [phone] Shanda Link PA-C Unavailable [phone] Myron Mcqueen DO Unavailable [phone] Rebecca Taylor DO Unavailable Fracisco See MD Unavailable [phone] Myron Mcqueen DO Unavailable [phone] Caitie Sheth MD Unavailable Vishal Roy MD Unavailable + [phone] Rebecca Taylor DO Unavailable Craig Ku MD Unavailable [phone] Reason for Visit * Reason Onset Date Comments Call Back 11/06/2020 Low fever Encounter Details Date Type Department Care Team (Late st Contact Info) Description 11/06/2020 Telephone [facility] [address] [phone] Anupam Washburn MD [facility] [address] [place] [address] Call Back (Low fever) Social History Tobacco Use Types Packs/Day Years Used Date Smoking Tobacco: Never Smokeless Tobacco: Never Alcohol Use Standard Drinks/Week Comments Not Currently 0 (1 standard drink = 0.6 oz pur e alcohol) PHQ-2 Answer Date Recorded PHQ-2 Score 0 08/27/2019 Sex and Gender Information Value Date Recorded Sex Assigned at Not on file Gender Identity Female 10/12/2020 11:[address] 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 No / Unsure 11/06/2020 10:[address] EQUIPMENT OPERATOR documented as of this encounter Miscellaneous Notes [...] to COVID. Will message provider with update. EQUIPMENT OPERATOR * Telephone Encounter - Lenore Tamera - 11/06/2020 1:26 PM CST M [facility] Call Center Phone Message May a detailed message be left on voicemail: yes Reason for Call: Other: Pt would like a call to discuss images as well as discuss low fever she keeps getting Action Taken: Message routed to: [facility] Pulm Travel Screening: Not Applicable EQUIPMENT OPERATOR documented in this encounter Plan of Treatment Upcoming Encounters Date Type Department Care Team (Late st Contact Info) Description 01/07/2025 1:[address] EQUIPMENT OPERATOR Office Visit [facility] [address] [phone] Sarah Woods MD 420 [facility] 276 [place], [place] [address]23455 documented as of this encounter Visit Diagnoses Not on filedocumented in this encounter Care Teams Dry Cleaner Apprentice Relationship Specialty Start Date End Date Craig Shaikh MD [address] [place] [address] PCP - Orthopaedics 07/14/20 Aaron Arzate MD 420 [facility] 276 [place], [place] 11508455 PCP - General Family Medicine 10/05/20 Fracisco See MD [address] [place] [address] Assigned Musculoskeletal Provider 09/11/20 05/01/21 Brian Watkins MD 420 [facility] 207 [place], [place] 54484455 Assigned Surgical Provider 09/11/2003/27/21 Sarah Woods MD 420 [facility] 276 [place], [place] 900435 Assigned Pulmonology Provider 09/11/20 Beth Cedeno MD 9 [place] [address] Assigned Cancer Care Provider 12/06/20 06/03/22 Shanda Link PA-C [address] [place] [address] Assigned Musculoskeletal Provider 05/02/21 10/09/21 Fracisco See MD [address] [place] [address] Assigned Musculoskeletal Provider 10/10/21 12/18/21 Shanda Link PA-C [address] [place] [address] Assigned Musculoskeletal Provider 12/19/21 05/06/22 Myron Mcqueen DO 1747 [place] [address] Assigned Neuroscience Provider 03/27/22 04/02/22 Rebecca Taylor DO RAY Assigned Neuroscience Provider 04/03/22 11/11/22 Fracisco See MD [address] [place] [address] Assigned Musculoskeletal Provider 05/07/22 04/10/24 Myron Mcqueen DO 1747 [place] [address] Assigned Neuroscience Provider 11/12/22 09/08/23 [place] [address] [place], [place] 256827 Pain Medicine 01/18/23 Vishal Roy MD [address] [place] 918835 Pain Medicine 03/09/23 Rebecca Taylor DO RAYUS Assigned Neuroscience Provider 09/09/23 10/20/23 Craig Ku MD 909 [facility] [id number] [place] [address] Assigned Neuroscience Provider 10/21/23 documented as of this encounter
--- OUTSIDE RECORDS SUMMARY | 2024-05-28 18:04 | XMS_ITS | Encounter Summary ---
Author Organization [place] Address [address] [place] [address] Care Team Providers Care Manager Community Relations Name Role Phone May Solo Primary Care Provider Unavailab Craig Rodriguez MD Unavailable [phone] Fracisco See MD Unavailable [phone] Brian Watkins MD Unavailable [phone] Sarah Woods MD Unavailable [phone] Aaron Arzate MD Primary Care Provider Beth Cedeno MD Unavailable [phone] Shanda Link PA-C Unavailable [phone] Fracisco See MD Unavailable [phone] Shanda Link PA-C Unavailable [phone] Myron Mcqueen DO Unavailable [phone] Rebecca Taylor DO Unavailable Fracisco See MD Unavailable [phone] Myron Mcqueen DO Unavailable [phone] Caitie Sheth MD Unavailable Vishal Ryo MD Unavailable + [phone] Rebecca Taylor DO Unavailable Craig Ku MD Unavailable [phone] Reason for Visit * Reason Onset Date Comments Appointment 10/02/2019 Pt called to isabel jennile holter monitor and her walk. Not seeing orders and message was sent last week to clinic. Will send another message. Encounter Details Date Type Department Care Team (Late st Contact Info) Description 10/02/2019 Telephone [facility] [address] [place] [phone] Brian Watkins MD [address] [place] [address] 207 [place] [address] Appointment ( Pt called to [...] file Gender Identity Female 10/12/2020 11:38 AM DISTRIBUTOR OF DIRECTORIES Sexual Orientation Not on file documented as of this encounter Miscellaneous Notes * Telephone Encounter - Myranda Eckert - 10/02/2019 1:09 PM CST [facility] Center Phone Message May a detailed message be left on voicemail: yes Reason for Call: Pt called to schedule holter monitor and her walk. Not seeing orders and message was sent last week to clinic. Will send another message. Not sure if It was sent to the correct department. Action Taken: THORACIC CARE COORDINATION-UMP RIBUTOR OF DIRECTORIES documented in this encounter Plan of Treatment Upcoming Encounters Date Type Department Care Team (Late st Contact Info) Description 01/07/2025 1:30 PM DISTRIBUTOR OF DIRECTORIES Office Visit [facility] for [facility] Health Clinic [address] [phone] Sarah Woods MD [address] [place] [address] 276 [place] [address] documented as of this encounter Visit Diagnoses Not on filedocumented in this encounter Additional Health Concerns Infection Onset Date Last Indicated Resolved Time Rule Out COVID-19 09/24/2020 09/24/2020 09/25/2020 11:20 AM DISTRIBUTOR OF DIRECTORIES Rule Out COVID-19 09/26/2020 09/26/2020 09/27/2020 12:59 PM DISTRIBUTOR OF DIRECTORIES COVID-19 09/26/2020 09/26/2020 10/17/2020 11:4 1 PM DISTRIBUTOR OF DIRECTORIES documented as of this encounter Care Teams Manager Community Relations Relationship Specialty Start Date End Date May Solo PCP - General 05/07/12 10/04/20 Craig Shaikh MD [address] [address] PCP - Orthopaedics 07/14/20 Aaron Arzate MD 420 [facility] 276 [place], [place] 398205 PCP - General Family Medicine 10/05/20 Fracisco See MD [address] [place], [place] 388914 Assigned Musculoskeletal Provider 09/11/20 05/01/21 Brian Watkins MD 420 [facility] 207 [place], [place] 703915 Assigned Surgical Provider 09/11/2003/27/21 Sarah Woods MD 420 [facility] 276 [place], [place] 078735 Assigned Pulmonology Provider 09/11/20 Beth Cedeno MD [address] [place] [address] 550945 Assigned Cancer Care Provider 12/06/20 06/03/22 Shanda Link PA-C [address] [place] [address] Assigned Musculoskeletal Provider 05/02/21 10/09/21 Fracisco See MD [address] [address] Assigned Musculoskeletal Provider 10/10/21 12/18/21 Shanda Link PA-C [address] [place] [address] Assigned Musculoskeletal Provider 12/19/21 05/06/22 Myron Mcqueen DO [address] [place] [address] Assigned Neuroscience Provider 03/27/22 04/02/22 Rebecca Taylor DO RAY Assigned Neuroscience Provider 04/03/22 11/11/22 Fracisco See MD [address] [address] Assigned Musculoskeletal Provider 05/07/22 04/10/24 Myron Mcqueen DO 1747 [place] [address] Assigned Neuroscience Provider 11/12/22 09/08/23 [place] [address] [place] [address] Pain Medicine 01/18/23 Vishal Roy MD [address] [place] [address] Pain Medicine 03/09/23 Rebecca Taylor DO RAY Assigned Neuroscience Provider 09/09/23 10/20/23 Craig Ku MD 909 [facility] [id number] [place] [address] Assigned Neuroscience Provider 10/21/23 documented as of this encounter
--- OUTSIDE RECORDS SUMMARY | 2024-05-28 18:04 | XMS_ITS | Clinical Summary ---
Author Organization [facility] Address [place], [place] [address] Care Team Providers Care City Sanitarian Name Role Phone Waldemar Arzate MD Primary Care Provider Allergies Active Allergy Reactions Criticality Noted Date [...] Comments LIPID PANEL Today 12/30/2019 10:30 AM SHEET ROCK APPLIER Shortness of breath Hyperlipidemia, unspecified hyperlipidemia type from Last 3 Months or Most Recently Relevant to Health Maintenance Results * LIPID PANEL (12/30/2019 10:30 AM SHEET ROCK APPLIER) [facility] CHOLESTEROL,TOTAL 152 100 - 199 mg/dL 12/30/2019 11:30 AM SHEET ROCK APPLIER [facility] TRIGLYCERIDES 46 <150 mg/dL 12/30/2019 11:30 AM SHEET ROCK APPLIER [facility] HDL CHOLESTEROL 67 >40 mg/dL 0 11:30 AM SHEET ROCK APPLIER [facility] NON-HDL CHOLESTEROL 85 <145 mg/dl 12/30/2019 11:30 AM SHEET ROCK APPLIER [facility] CHOL/HDL RATIO 2.27 <4.50 12/30/2019 11:30 AM SHEET ROCK APPLIER [facility] LDL CHOLESTEROL 76 <=130 mg/dL 12/30/2019 11:30 AM SHEET ROCK APPLIER [facility] PROVIDER ORDERED STATUS RANDOM 12/30/2019 11:30 AM [facility] Blood BLOOD SPECIMEN / Unknown Venipuncture / Unknown 12/30/2019 10:30 AM SHEET ROCK APPLIER 12/30/2019 10:38 AM SHEET ROCK APPLIER Alonso Ibanez MD [facility] [address] [place] [address] from Last 3 Months or Most Recently Relevant to Health Maintenance Care Teams City Sanitarian Relationship Specialty Start Date End Date Waldemar Arzate MD PCP - General Family Practice 04/28/21
--- OUTSIDE RECORDS SUMMARY | 2024-05-28 18:04 | XMS_ITS | Encounter Summary ---
Author Organization [facility] Address [address] [place] [address] Care Team Providers Care Terra Cotta Mold Maker Name Role Phone Craig Shaikh MD Unavailable [phone] Fracisco See MD Unavailable [phone] Brian Watkins MD Unavailable [phone] Sarah Woods MD Unavailable [phone] Aaron Arzate MD Primary Care Provider Beth Cedeno MD Unavailable [phone] Shanda Link PA-C Unavailable [phone] Fracisco See MD Unavailable [phone] Shanda Link PA-C Unavailable [phone] Myron Mcqueen DO Unavailable [phone] Rebecca Taylor DO Unavailable Fracisco See MD Unavailable [phone] Myron Mcqueen DO Unavailable [phone] Caitie Sheth MD Unavailable Vishal Roy MD Unavailable + [phone] Rebecca Taylor DO Unavailable Craig Ku MD Unavailable [phone] Encounter Details Date Type Department Care Team (Late Contact Info) Description 12/29/2020 MyC Medical Advice [facility] [address] 4th [place] [address] Shanda Link PARubénC [address] [place] [address] [id number] Social History Tobacco Use Types Packs/Day Years Used Date Smoking Tobacco: Never Smokeless Tobacco: Never Alcohol Use Standard Drinks/Week Comments Not Currently 0 (1 standard drink = 0.6 oz pur e alcohol) PHQ-2 Answer Date Recorded PHQ-2 Score 0 12/18/2020 Sex and Gender Information Value Date Recorded Sex Assigned at Not on file Gender Identity Female 10/12/2020 11:38 AM GRANT OFFICER Sexual Orientation Not on file COVID-19 Exposure Response Date Recorded In the last month, have you been in contact with someone who was confirmed or suspected to have Coronavirus / COVID-19? No / Unsure 12/17/2020 10:31 AM GRANT OFFICER documented as of this encounter Plan of Treatment Upcoming Encounters Date Type Department Care Team (Late Contact Info) Description 01/07/2025 1:30 PM GRANT OFFICER Office Visit [facility] [address] [phone] Sarah Woods MD [address] [place] [address] documented as of this encounter Visit Diagnoses Not on filedocumented in this encounter Care Teams Terra Cotta Mold Maker Relationship Specialty Start Date End Date Craig Shaikh MD [address] [place] [address] PCP - Orthopaedics 07/14/20 Aaron Arzate MD [address] [place] [address] 954015 PCP - General Family Medicine 10/05/20 Fracisco See MD [address] [address] Assigned Musculoskeletal Provider 09/11/20 05/01/21 Brian Watkins MD 420 [facility] 207 [place], [place] 210145 Assigned Surgical Provider 09/11/2003/27/21 Sarah Woods MD 420 [facility] 276 [place], [place] 596195 Assigned Pulmonology Provider 09/11/20 Beth Cedeno MD 9 [place], [place] 106445 Assigned Cancer Care Provider 12/06/20 06/03/22 Shanda Link PARubénC [address] [place] [address] Assigned Musculoskeletal Provider 05/02/21 10/09/21 Fracisco See MD [address] [address] Assigned Musculoskeletal Provider 10/10/21 12/18/21 Shanda Link PAAlicia [address] [place] [address] Assigned Musculoskeletal Provider 12/19/21 05/06/22 Myron Mcqueen DO [address] [place] [address] Assigned Neuroscience Provider 03/27/22 04/02/22 Rebecca Taylor, RAYUS Assigned Neuroscience Provider 04/03/22 11/11/22 Fracisco See MD [facility] [address] [place], [place] [address] Assigned Musculoskeletal Provider 05/07/22 04/10/24 Myron Mcqueen DO [address] [facility] [place] [address] Assigned Neuroscience Provider 11/12/22 09/08/23 [place] [address] [place], [place] [address] Pain Medicine 01/18/23 Vishal Roy MD 6545 [facility] [place] 890275 Pain Medicine 03/09/23 Rebecca Taylor DO RAYUS Assigned Neuroscience Provider 09/09/23 10/20/23 Craig Ku MD [address] [facility] - [id number] [address] Assigned Neuroscience Provider 10/21/23 documented as of this encounter
== END 2024-05-26 19:48 | disposition home or self-care (01) ==
LOC: AMB 05-28 18:01
PROVIDERS: PCP Family Medicine; Visit Provider Emergency Medicine
DX: M79.671 Pain in right foot (principal); U07.1 COVID-19
CPT/HCPCS: A0425; A0429

== ENCOUNTER 2024-05-26 20:22 | Observation (INO) | payer MEDICARE, SELFPAY ==
[2024-05-26] VITALS (11 sets, daily range): BP systolic 143–183; BP diastolic 79–104; PULSE 100–107; RESP 20; TEMP 36.9; O2SAT 95–100; BMI 32.6
--- NOTE | 2024-05-26 20:47 | CRLHL7_ITS ---
For Patients: As a result of the Cures Act, medical imaging exams and procedure reports are released immediately into your electronic medical record. You may view this report before your referring provider. If you have questions, please contact your health care provider. Indication: : Shortness of breath cough COVID TECHNIQUE: Single-view chest. FINDINGS: Mildly enlarged cardiac silhouette thoracolumbar spinal hardware. Slight prominence of the interstitial markings bilaterally could be related to pulmonary edema or infectious inflammatory processes to include atypical infections. There is no airspace consolidation, effusion or pneumothorax. Dictated by Gemma Iglesias MD @ 05/26/2024 9:36:49 PM (Electronically Signed)
--- OUTSIDE RECORDS SUMMARY | 2024-05-26 20:55 | XMS_ITS | Encounter Summary ---
Author Organization [facility] Address [address] [place] [address]. [place] [address] Care Team Providers Care Butadiene Converter Helper Name Role Phone Craig Shaikh MD Unavailable [phone] Sarah Woods MD Unavailable [phone] Aaron Arzate MD Primary Care Provider Beth Cedeno MD Unavailable [phone] Shanda Link PA-C Unavailable [phone] Fracisco See MD Unavailable [phone] Shanda Link PA-C Unavailable [phone] Myron Mcqueen DO Unavailable [phone] Rebecca Taylor DO Unavailable Fracisco See MD Unavailable [phone] Myron Mcqueen DO Unavailable [phone] Caitie [place] MD Unavailable Vishal Roy MD Unavailable [phone] Rebecca Taylor DO Unavailable Craig Ku MD Unavailable [phone] Encounter Details Date Type Department Care Team (Late st Contact Info) Description 09/30/2021 [facility] [place] [id number] [facility] [address] [place] [phone] Saira Felipe LPN Social History Tobacco Use Types Packs/Day Years Used Date Smoking Tobacco: Never Smokeless Tobacco: Never Alcohol Use Standard Drinks/Week Comments Not Currently 0 (1 standard drink = 0.6 oz pur e alcohol) PHQ-2 Answer Date Recorded PHQ-2 Score 0 12/18/2020 Sex and Gender Information Value Date Recorded Sex Assigned at Not on file Gender Identity Female 10/12/2020 11:38 AM 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 Sexual Orientation Not on file documented as of this encounter Plan of Treatment Upcoming Encounters Date Type Department Care Team (Late st Contact Info) Description 01/07/2025 1:30 PM 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 Office Visit [facility] [address] [phone] Sarah Woods MD [address] [place] [phone] documented as of this encounter Visit Diagnoses Not on filedocumented in this encounter Care Teams Butadiene Converter Helper Relationship Specialty Start Date End Date Craig Shaikh MD [address] [place] [address] PCP - Orthopaedics 07/14/20 Aaron Arzate MD [address] [place] [address] 864275 PCP - General Family Medicine 10/05/20 Sarah Woods MD [address] [place] [address] [id number] Assigned Pulmonology Provider 09/11/20 Beth Cedeno MD [address] [place] [address] Assigned Cancer Care Provider 12/06/20 06/03/22 Shanda Link PA-C [address] [place] [address] Assigned Musculoskeletal Provider 05/02/21 10/09/21 Fracisco See MD [address] [place] [address] Assigned Musculoskeletal Provider 10/10/21 12/18/21 Shanda Link PA-C [address] [place] [address] Assigned Musculoskeletal Provider 12/19/21 05/06/22 Myron Mcqueen DO [address] [place] [address] Assigned Neuroscience Provider 03/27/22 04/02/22 Rebecca Taylor DO RAYUS Assigned Neuroscience Provider 04/03/22 11/11/22 Fracisco See MD [address] [address] Assigned Musculoskeletal Provider 05/07/22 04/10/24 Myron Mcqueen DO [address] [facility] [place] [address] Assigned Neuroscience Provider 11/12/22 09/08/23 [place] [address] [place] [address] Pain Medicine 01/18/23 Vishal Roy MD [address] [address] Pain Medicine 03/09/23 Rebecca Taylor DO LINUS Assigned Neuroscience Provider 09/09/23 10/20/23 Craig Ku MD [address] [facility] [id number] [place] [address] Assigned Neuroscience Provider 10/21/23 documented as of this encounter
--- OUTSIDE RECORDS SUMMARY | 2024-05-26 20:55 | XMS_ITS | Clinical Summary ---
Author Organization [facility] Address [address] [place] [address] Care Team Providers Care Licensed Psychiatric Technician Name Role Phone Craig Shaikh MD Unavailable [phone] Sarah Woods MD Unavailable [phone] Aaron Arzate MD Primary Care Provider [phone] Caitie Sheth MD Unavailable Vishal Roy MD Unavailable + [phone] Craig Ku MD Unavailable [phone] Allergies Active Allergy Reactions Criticality Noted Date Comments Lisinopril Cough 12/24/2019 Medications Medication Sig Dispensed Refills Start Date End Date Status predniSONE (DELTASONE) 10 MG tablet as needed 3 9 Active rosuvastatin (CRESTOR) 5 MG tablet Take 5 mg by mouth At Bedtime 9 Active Multiple Vitamins-Minerals (MULTIVITAMIN ADULT PO) Take by mouth every morning Active Calcium Carb-Cholecalcifer ol (CALCIUM 500 +D PO) Take by mouth every morning Active acetaminophen (TYLENOL) 325 MG tabletIndications: Foraminal stenosis of lumbar region Take 2 tablets (650 mg) by mouth every 4 hours as needed for other (moderate to severe pain) 1 Bottle 1 0 Active ipratropium - albuterol 0.5 mg/2.5 mg/3 mL (DUONEB) 0.5-2.5 (3) MG/3ML neb solutionIndication s:Moderate persistent asthma with exacerbation Take 1 vial (3 mLs) by nebulization every 6 hours as needed for shortness of breath / dyspnea or wheezing 300 mL 1 0 Active escitalopram (LEXAPRO) 10 MG tablet Take 10 mg by mouth daily Active methylPREDNISolone (MEDROL DOSEPAK) 4 MG tablet therapy packIndications:Sc iatica of right side Follow Package Directions 21 tablet 3 Active tiZANidine (ZANAFLEX) 4 MG tabletIndications: S/P spinal fusion Take 1 tablet (4 mg) by mouth 3 times daily as needed for muscle spasms 56 tablet 3 Active SYMBICORT 160-4.5 MCG/ACT InhalerIndications :Moderate persistent asthma without complication,Dyspn ea on exertion INHALE 2 PUFFS BY MOUTH TWICE A DAY 10.2 g 1 3 Active gabapentin (NEURONTIN) 100 MG capsuleIndications :Paresthesia Take 1 capsule (100 mg) by mouth 3 times daily Use with 300 mg capsules to titrate the dose 90 capsule 1 3 Active Additional Information Patient not taking.Reported on 01/09/2024 albuterol (PROAIR HFA/PROVENTIL HFA/VENTOLIN HFA) 108 (90 Base) MCG/ACT inhalerIndications :Moderate asthma with exacerbation, unspecified whether persistent INHALE 2 PUFFS BY MOUTH EVERY 4 TO 6 HOURS NEEDED 18 g 2 3 Active budesonide-formote rol (SYMBICORT) 160-4.5 MCG/ACT InhalerIndications :Moderate persistent asthma without complication Inhale 2 puffs once daily plus 1-2 puffs as needed. May use up to 12 puffs per day. 20.4 g 11 3 Active gabapentin (NEURONTIN) 300 MG capsuleIndications :Lumbar radiculopathy TAKE 2 CAPSULES (600 MG) BY MOUTH 3 TIMES DAILY 540 capsule 1 3 Active Additional Information Patient not taking.Reported on 01/09/2024 pregabalin (LYRICA) 75 MG capsule Take 75 mg by mouth 2 times daily 4 Active DULoxetine (CYMBALTA) 20 MG capsule Take 20 mg by mouth 2 times daily Active medical cannabis (Patient's own supply) See Admin Instructions (The purpose of this order is to document that the patient reports taking medical cannabis. This is not a prescription, and is not used to certify that the patient has a qualifying medical condition.) Active montelukast (SINGULAIR) 10 MG tabletIndications: Moderate persistent asthma without complication,Dyspn ea on exertion TAKE ONE TABLET BY MOUTH AT BEDTIME 30 tablet 2 4 Active montelukast (SINGULAIR) 10 MG tabletIndications: Moderate persistent asthma without complication,Dyspn ea on exertion TAKE ONE TABLET BY MOUTH AT BEDTIME 30 tablet 2 4 04/29/20 24 Discontinued Active Problems Problem Noted Date Diagnosed Date Intermittent asthma 08/21/2020 Pseudoarthrosis of lumbar spine 07/21/2020 Overview: Added automatically from request for surgery [id number] Foraminal stenosis of lumbar region 07/21/2020 Overview: Added automatically from request for surgery [id number] Elevated coronary artery calcium score 9 Sesamoiditis 02/09/2009 Scoliosis, adolescent acquired 03/23/1964 Encounters Date Type Department Care Team Description 04/26/2024 Refill [facility] [address] [address] Sarah Woods MD Medication Refill from Last 3 Months Family History Medical History Relation Comments LUNG DISEASE No family hx of Social History Tobacco Use Types Packs/Day Years Used Date Smoking Tobacco: Never Smokeless Tobacco: Never Tobacco Cessation:Counseling Given: Not Answered Alcohol Use Standard Drinks/Week Comments Not Currently 0 (1 standard drink = 0.6 oz pur e alcohol) PHQ-2 Answer Date Recorded PHQ-2 Score 0 06/20/2023 Adolescent Education Answer Date Record ed Getting School Help Needed Not on file 08/16 Sex and Gender Information Value Date Recorded Sex Assigned at Not on file Gender Identity Female 10/12/2020 11:38 AM GIN CLERK Sexual Orientation Not on file Last Filed Vital Signs Vital Sign Reading Time Taken Comments Blood Pressure 143/84 10/16/2023 10:18 AM GIN CLERK Pulse 76 01/09/2024 3:02 PM GIN CLERK Temperature 36.8 ??C (98.2 ??F) 09/20/2022 11:15 AM C DT Respiratory Rate 16 10/16/2023 10:18 AM GIN CLERK Oxygen Saturation 97% 01/09/2024 3:02 PM GIN CLERK Inhaled Oxygen Concentration - - Weight 83.9 kg (185 lb) 10/16/2023 10:18 AM GIN CLERK Height 160 cm (5' 3) 10/16/2023 10:18 AM GIN CLERK Body Mass Index 32.77 10/16/2023 10:18 AM GIN CLERK Plan of Treatment Upcoming Encounters Date Type Department Care Team (Late st Contact Info) Description 01/07/2025 1:30 PM GIN CLERK Office Visit [facility] [place] [address] [place] [address] Sarah Woods MD [address] [facility] [address] [place] [address] Health Maintenance Due Date Last Done Comments ADVANCE CARE PLANNING 1950 ANNUAL REVIEW OF HM ORDERS 1950 ASTHMA ACTION PLAN [address] CT COLONOGRAPHY 1950 FIT 1950 FLEX SIG 1950 LIPID 1950 sDNA (Cologuard) 1950 COLONOSCOPY 1960 COLORECTAL CANCER SCREENING 1960 HEPATITIS C SCREENING 1968 RSV VACCINE ( & 60+) (1 - 1-dose 60+ series) 2010 ZOSTER IMMUNIZATION (2 of 3) 10/15/2013 08/20/2013 MEDICARE ANNUAL WELLNESS VISIT 2015 FALL RISK ASSESSMENT 08/27/2020 08/27/2019, 08/27/20 19 MAMMO SCREENING 07/18/2021 07/18/2019, 06/21, 01/16/2018 ASTHMA CONTROL TEST 11/02/2022 05/03/2022 GLUCOSE 09/28/2023 09/28/2020, 06/2020, 09/26/2020, Additional history exists PHQ-2 (once per calendar year) 2023 06/20/2023, 03/01/2023, 05/03/2022, Additional history exists COVID-19 Vaccine (2022- season) 2024 10/18/2023, 04/13/2022, 10/05/2021, Additional history exists INFLUENZA VACCINE (#1) 2024 , 09/05/2022, 08/16/2021, Additional history exists DTAP/TDAP/TD IMMUNIZATION (3 - Td or Tdap) 01/11/2033 01/11/2023, 10/21/2011, 03/04/2010 DEXA 07/16/2035 07/16/2020, 06/21, 07/18/2019 Pneumococcal Vaccine: 65+ Years Completed 09/14/2016, 07/15/2015 HPV IMMUNIZATION Aged Out No longer e ligible based on patient's age to complete this topic IPV IMMUNIZATION Aged Out No longer e ligible based on patient's age to complete this topic MENINGITIS IMMUNIZATION Aged Out No l onger eligible based on patient's age to complete this topic RSV MONOCLONAL ANTIBODY Aged Out No l onger eligible based on patient's age to complete this topic Medical Devices Implanted Type Area Senior Business Development Analyst Device Identifier Shelf Expiration Date Model / Serial / Lot Graft Bone Crush Canc 30ml [id number] Implanted:Qty : 1 on 09/21/2020 by Fracisco See MD at [facility] Bone/Tissu e/Biologic N/A: Spine Lumbar MUSCULOSKELETAL OBANDO 07/13/2023 [id number] / [id number] / Graft Bone Crush Canc 30ml [id number] Implanted:Qty : 1 on 09/21/2020 by Fracisco See MD at [facility] Bone/Tissu e/Biologic N/A: Spine Lumbar MUSCULOSKELETAL OBANDO 07/08/2023 [id number] / [id number] / Imp Scr Medt 5.5/6.0mm Solera 6.5x40mm Ma [id number] Implanted:Qty : 2 on 09/21/2020 by Fracisco See MD at [facility] Metallic Hardware/A nchor N/A: Spine Lumbar [employer] [id number] / / [id number] Imp Scr Medt 5.5/6.0mm Solera 6.5x30mm Ma [id number] Implanted:Qty : 1 on 09/21/2020 by Fracisco See MD at [facility] Metallic Hardware/A nchor N/A: Spine Lumbar [employer] [id number] / / [id number] Imp Scr Medt 5.5/6.0mm Solera 5.5x45mm Ma [id number] Implanted:Qty : 1 on 09/21/2020 by Fracisco See MD at [facility] Metallic Hardware/A nchor N/A: Spine Lumbar [employer] [id number] / / [id number] Imp Scr Medt 5.5/6.0mm Solera 5.5x40mm Ma [id number] Implanted:Qty : 2 on 09/21/2020 by Fracisco See MD at [facility] Metallic Hardware/A nchor N/A: Spine Lumbar [employer] [id number] / / [id number] Imp Connector Medt [place] Closed 5.5mm [id number] Implanted:Qty : 2 on 09/21/2020 by Fracisco See MD at [facility] Metallic Hardware/A nchor N/A: Spine Lumbar [employer] [id number] / / Imp Connector Torres Medt 5.5mm [id number] Implanted:Qty : 2 on 09/21/2020 by Fracisco See MD at [facility] Metallic Hardware/A nchor N/A: Spine Lumbar [employer] [id number] / / Imp Scr Set Torres Medt 5.5 To 5.5mm [id number] Implanted:Qty : 8 on 09/21/2020 by Fracisco See MD at [facility] Metallic Hardware/A nchor N/A: Spine Lumbar [employer] [id number] / / Imp Matias Medt Solera Lined 5.7k507ma Chr [id number] Implanted:Qty : 2 on 09/21/2020 by Fracisco See MD at [facility] Metallic Hardware/A nchor N/A: Spine Lumbar [employer] [id number] / / Imp Scr Set Medt Solera Break Off 5.5mm Ti [id number] Implanted:Qty : 10 on 09/21/2020 by Fracisco See MD at [facility] Metallic Hardware/A nchor N/A: Spine Lumbar [employer] [id number] / / [id number] Imp Scr Medt 5.5/6.0mm Solera 7.5x45mm Ma [id number] Implanted:Qty : 1 on 09/21/2020 by Fracisco See MD at [facility] Metallic Hardware/A nchor N/A: Spine Lumbar [employer] [id number] / / [id number] Imp Scr Medt 5.5/6.0mm Solera 7.5x35mm Ma [id number] Implanted:Qty : 1 on 09/21/2020 by Fracisco See MD at [facility] Metallic Hardware/A nchor N/A: Spine Lumbar [employer] [id number] / / [id number] Ifuse Implant System 7.0mm X 90 Mm Implant Implanted:Qty : 1 on 09/21/2020 by Fracisco See MD at [facility] Right: Sacrum [employer] 11/04/2024 7090M-90 / / [id number] Description:SI Joint Ifuse Implant System 7.0mm X 90 Mm Implant Implanted:Qty : 1 on 09/21/2020 by Fracisco See MD at [facility] Left: Sacrum [employer] 03/11/2055 7090M-90 / / [id number] Description:SI Joint 9.5 X 100 Ballast Screw Implanted:Qty : 2 on 09/21/2020 by Fracisco See MD at [facility] N/A: Spine Lumbar [id number] / / Explanted Type Area Senior Business Development Analyst Device Identifier Shelf Expiration Date Model / Serial / Lot Imp Scr Medt 5.5/6.0mm Solera 6.5x40mm Ma [id number] Explanted:Qty: 1 on 09/21/2020 by Fracisco See MD at [facility] Metallic Hardware/An chor N/A: Spine Lumbar [employer] [id number] / / [id number] Imp Scr Medt 5.5/6.0mm Solera 7.5x45mm Ma [id number] Explanted:Qty: 1 on 09/21/2020 by Fracisco See MD at [facility] Metallic Hardware/An chor N/A: Spine Lumbar [employer] [id number] / / Imp Scr Medt 5.5/6.0mm Solera 5.5x45mm Ma [id number] Explanted:Qty: 1 on 09/21/2020 by Fracisco See MD at [facility] Metallic Hardware/An chor N/A: Spine Lumbar [employer] [id number] / / [id number] Imp Scr Medt 5.5/6.0mm Solera 5.5x40mm Ma [id number] Explanted:Qty: 1 on 09/21/2020 by Fracisco See MD at [facility] Metallic Hardware/An chor N/A: Spine Lumbar [employer] [id number] / / [id number] Imp Scr Medt 5.5/6.0mm Solera 6.5x30mm Ma [id number] Explanted:Qty: 1 on 09/21/2020 by Fracisco See MD at [facility] Metallic Hardware/An chor N/A: Spine Lumbar [employer] [id number] / / [id number] Posterior Spine Explants Explanted:Qty: 1 on 09/21/2020 by Fracisco See MD at [facility] Bilateral : Spine Lumbar Procedures Procedure Name Priority Date/Time Associated Diagnosis Comments BASIC METABOLIC PANEL Routine 09/28/2020 6:25 AM GIN CLERK Pneumonia due to 2019 novel coronavirus DX PERIPHERAL WRIST Routine 07/16/2020 1 :09 PM CDT Other specified disorders of bone density and structure, other site MAMMOGRAM - HIM SCAN 07/18/2019 12:00 AM CDT from Last 3 Months or Most Recently Relevant to Health Maintenance Results * (ABNORMAL) Basic metabolic panel (09/28/2020 6:25 AM GIN CLERK) Sodium 141 133 - 144 mmol/L 09/28/2020 7:05 AM GIN CLERK [facility] Potassium 4.0 3.4 - 5.3 mmol/L 09/28/2020 7:05 AM GIN CLERK [facility] Chloride 110(H) 94 - 109 mmol/L 09/28/2020 7:05 AM GIN CLERK [facility] Carbon Dioxide 25 20 - 32 mmol/L 09/28/2020 7:10 AM GIN CLERK [facility] Anion Gap 6 3 - 14 mmol/L 09/28/2020 7:10 AM GIN CLERK [facility] Glucose 116(H) 70 - 99 mg/dL 09/28/2020 7:10 AM GIN CLERK [facility] Urea Nitrogen 11 7 - 30 mg/dL 09/28/2020 7:10 AM GIN CLERK [facility] Creatinine 0.53 0.52 - 1.04 mg/dL 09/28/2020 7:10 AM GIN CLERK [facility] GFR Estimate >90 >60 mL/min/{1. 73_m2} 09/28/2020 7:10 AM GIN CLERK [facility] Comment: Non GFR Calc Starting 11/06/2018, serum creatinine based estimated GFR (eGFR) will be calculated using the Chronic Kidney Disease Epidemiology Collaboration (CKD-EPI) equation. GFR Estimate If Black >90 >60 mL/min/{1. 73_m2} 09/28/2020 7:10 AM GIN CLERK [facility] Comment: GFR Calc Starting 11/06/2018, serum creatinine based estimated GFR (eGFR) will be calculated using the Chronic Kidney Disease Epidemiology Collaboration (CKD-EPI) equation. Calcium 8.6 8.5 - 10.1 mg/dL 09/28/2020 7:10 AM GIN CLERK [facility] Blood specimen (specimen) 09/28/2020 6:25 AM GIN CLERK 09/28/2020 6:26 AM GIN CLERK Rajat Moreland MD LAB - BLOOD ORDERABL ES [facility] * Dexa wrist heel (07/16/2020 1:09 PM CDT) Anatomical Region Laterality Modality Dexa Bone Mineral Den sity Narrative 07/20/2020 10:05 AM CDT Results are reported under DXA scan report for the hip/spine performed on the same day. Principal result swatcher: Dante Ocampo MD, [facility] Division of Diabetes, Endocrinology and Metabolism [facility] [phone] Fracisco See MD IMG DEXA ORDERABLES * MAMMOGRAM - HIM SCAN (07/18/2019 12:00 AM CDT) Anatomical Region Laterality Modality Other 07/18/2019 Provider Outside IMG MAMMOGRAPHY KARLIE LEWIS from Last 3 Months or Most Recently Relevant to Health Maintenance Advance Directives For more information, please contact: [phone] * Full Code (Latest Code Status on File) Date Activated Date Inactivated Comments 09/21/2020 9:01 PM 09/30/2020 6:25 PM All basic a nd advanced life-sustaining interventions are performed as appropriate Question Answer Comments Code status determined by: Discussion with patie nt/ legal decision maker Care Teams Licensed Psychiatric Technician Relationship Specialty Start Date End Date Craig Shaikh MD [address] [place] [address] PCP - Orthopaedics 07/14/20 Aaron Arzate MD [address] [id number] PCP - General Family Medicine 10/05/20 Sarah Woods MD [address] [id number] Assigned Pulmonology Provider 09/11/20 [place] [address] [address] Pain Medicine 01/18/23 Vishal oRy MD [address] [place] [id number] Pain Medicine 03/09/23 Craig Ku MD [address] [place] [address] [address] Assigned Neuroscience Provider 10/21/23
--- OUTSIDE RECORDS SUMMARY | 2024-05-26 20:55 | XMS_ITS | Encounter Summary ---
Author Organization [facility] Address [address] [place] [address] Care Team Providers Care Environmental Health Manager Name Role Phone May Solo Primary Care Provider Unavailab Craig Rodriguez MD Unavailable [phone] Fracisco See MD Unavailable [phone] Brian Watkins MD Unavailable [phone] Sarah Woods MD Unavailable [phone] Aaron Arzate MD Primary Care Provider Beth Cedeno MD Unavailable [phone] Shanda Link PA-C Unavailable [phone] Fracisco See MD Unavailable [phone] Shanda Link PA-C Unavailable [phone] Myron Mcqueen DO Unavailable [phone] Rebecca Taylor DO Unavailable Fracisco See MD Unavailable [phone] Myron Mcqueen DO Unavailable [phone] Caitie Sheth MD Unavailable Vishal Roy MD Unavailable + [phone] Rebecca Taylor DO Unavailable Craig Ku MD Unavailable [phone] Encounter Details Date Type Department Care Team (Late st Contact Info) Description 08/26/2020 MyC Medical Advice [facility] [address] [place] [phone] Radha Greene, RN Social History Tobacco Use Types Packs/Day Years Used Date Smoking Tobacco: Never Smokeless Tobacco: Never Alcohol Use Standard Drinks/Week Comments Not Currently 0 (1 standard drink = 0.6 oz pur e alcohol) PHQ-2 Answer Date Recorded PHQ-2 Score 0 08/27/2019 Sex and Gender Information Value Date Recorded Sex Assigned at Not on file Gender Identity Female 10/12/2020 11:38 AM GARBAGE WORKER Sexual Orientation Not on file COVID-19 Exposure Response Date Recorded In the last month, have you been in contact with someone who was confirmed or suspected to have Coronavirus / COVID-19? No / Unsure 07/29/2020 12:52 PM CDT documented as of this encounter Plan of Treatment Upcoming Encounters Date Type Department Care Team (Late st Contact Info) Description 01/07/2025 1:30 PM GARBAGE WORKER Office Visit [facility] [address] [phone] Sarah Woods MD [address] [place] [address] documented as of this encounter Visit Diagnoses Not on filedocumented in this encounter Additional Health Concerns Infection Onset Date Last Indicated Resolved Time Rule Out COVID-19 09/24/2020 09/24/2020 09/25/2020 11:20 AM GARBAGE WORKER Rule Out COVID-19 09/26/2020 09/26/2020 09/27/2020 12:59 PM GARBAGE WORKER COVID-19 09/26/2020 09/26/2020 10/17/2020 11:4 1 PM GARBAGE WORKER documented as of this encounter Care Teams Environmental Health Manager Relationship Specialty Start Date End Date May Solo PCP - General 05/07/12 10/04/20 Craig Shaikh MD [address] [address] PCP - Orthopaedics 07/14/20 Aaron Arzate MD [address] [place] [address] PCP - General Family Medicine 10/05/20 Fracisco See MD [address] [place] [address] Assigned Musculoskeletal Provider 09/11/20 05/01/21 Brian Watkins MD [address] [place] [address] Assigned Surgical Provider 09/11/2003/27/21 Sarah Woods MD [address] [place] [address] Assigned Pulmonology Provider 09/11/20 Beth Cedeno MD [address] [place] [address] Assigned Cancer Care Provider 12/06/20 06/03/22 Shanda Link PA-C [address] [place] [address] Assigned Musculoskeletal Provider 05/02/21 10/09/21 Fracisco See MD [address] [place] [address] Assigned Musculoskeletal Provider 10/10/21 12/18/21 Shanda Link PA-C [address] [place] [address] Assigned Musculoskeletal Provider 12/19/21 05/06/22 Myron Mcqueen DO [address] [place] [address] Assigned Neuroscience Provider 03/27/22 04/02/22 Rebecca Taylor DO RAYUS Assigned Neuroscience Provider 04/03/22 11/11/22 Fracisco See MD [address] [place] [address] Assigned Musculoskeletal Provider 05/07/22 04/10/24 Myron Mcqueen DO [address] [place] [address] Assigned Neuroscience Provider 11/12/22 09/08/23 [place] [address] [place] [address] Pain Medicine 01/18/23 Vishal Roy MD [address] [facility] [place] [address] Pain Medicine 03/09/23 Rebecca Taylor DO RAYUS Assigned Neuroscience Provider 09/09/23 10/20/23 Craig Ku MD [address] [id number] [place], [place] [address] Assigned Neuroscience Provider 10/21/23 documented as of this encounter
--- OUTSIDE RECORDS SUMMARY | 2024-05-26 20:55 | XMS_ITS | Referral Summary ---
Author Organization [facility] Address [address] [place] [address]. [place] [address] Care Team Providers Care Roll Slicing Machine Tender Name Role Phone Craig Shaikh MD Unavailable [phone] Sarah Woods MD Unavailable [phone] Aaron Arzate MD Primary Care Provider [phone] Caitie Sheth MD Unavailable Vishal Roy MD Unavailable + [phone] Craig Ku MD Unavailable [phone] Encounters Date Type Department Care Team Description 04/26/2024 Refill [facility] [address] [address] Sarah Woods MD Medication Refill from Last 3 Months Allergies Active Allergy Reactions Criticality Noted Date [...] 75 mg by mouth 2 times daily 02/09/202 4 Active DULoxetine (CYMBALTA) 20 MG capsule [...] Overview: Added automatically from request for surgery [id number] Foraminal stenosis of lumbar region 07/21/2020 Overview: Added automatically from request for surgery [id number] Elevated coronary artery calcium score 9 Sesamoiditis 02/09/2009 Scoliosis, adolescent acquired 03/[birth year]/1964 Social History Tobacco Use Types Packs/Day Years [...] file Gender Identity Female 10/12/2020 11:38 AM ROUTE AIDE Sexual Orientation Not on file Last Filed Vital Signs Vital Sign Reading Time Taken Comments Blood Pressure 143/84 10/16/2023 10:18 AM ROUTE AIDE Pulse 76 01/09/2024 3:02 PM ROUTE AIDE Temperature 36.8 ??C (98.2 ??F) 09/20/2022 11:15 AM C DT Respiratory Rate 16 10/16/2023 10:18 AM ROUTE AIDE Oxygen Saturation 97% 01/09/2024 3:02 PM ROUTE AIDE Inhaled Oxygen Concentration - - Weight 83.9 kg (185 lb) 10/16/2023 10:18 AM ROUTE AIDE Height 160 cm (5' 3) 10/16/2023 10:18 AM ROUTE AIDE Body Mass Index 32.77 10/16/2023 10:18 AM ROUTE AIDE Plan of Treatment Upcoming Encounters Date Type Department Care Team (Late st Contact Info) Description 01/07/2025 1:30 PM ROUTE AIDE Office Visit [facility] [address] [address] Sarah Woods MD [address] [place] [address] Medical Devices Implanted Type Area It Lead Device Identifier Shelf Expiration Date Model / Serial / Lot Graft Bone Crush Canc 30ml [id number] Implanted:Qty : 1 on 09/21/2020 by Fracisco See MD at [facility] Bone/Tissu e/Biologic N/A: Spine Lumbar MUSCULOSKELETAL OBANDO 07/13/2023 [id number] / [id number] / Graft Bone Crush Canc 30ml [id number] Implanted:Qty : 1 on 09/21/2020 by Fracisco See MD at [facility] Bone/Tissu e/Biologic N/A: Spine Lumbar MUSCULOSKELETAL OBANDO 07/08/2023 [id number] / [id number] / Imp Scr Medt 5.5/6.0mm Solera 6.5x40mm Ma [id number] Implanted:Qty : 2 on 09/21/2020 by Fracisco See MD at [facility] Metallic Hardware/A nchor N/A: Spine Lumbar [employer] [id number] / / [id number] Imp Scr Medt 5.5/6.0mm Solera 6.5x30mm Ma [id number] Implanted:Qty : 1 on 09/21/2020 by Fracisco See MD at [facility] Metallic Hardware/A nchor N/A: Spine Lumbar [employer] [id number] / / [id number] Imp Scr Medt 5.5/6.0mm Solera 5.5x45mm Ma [id number] Implanted:Qty : 1 on 09/21/2020 by Fracisco See MD at [facility] Metallic Hardware/A nchor N/A: Spine Lumbar [employer] [id number] / / [id number] Imp Scr Medt 5.5/6.0mm Solera 5.5x40mm Ma [id number] Implanted:Qty : 2 on 09/21/2020 by Fracisco See MD at [facility] Metallic Hardware/A nchor N/A: Spine Lumbar [employer] [id number] / / [id number] Imp Connector Medt Torres Closed 5.5mm [id number] Implanted:Qty : 2 on 09/21/2020 by Fracisco See MD at [facility] Metallic Hardware/A nchor N/A: Spine Lumbar [employer] [id number] / / Imp Connector [place] Medt 5.5mm [id number] Implanted:Qty : 2 on 09/21/2020 by Fracisco See MD at [facility] Metallic Hardware/A nchor N/A: Spine Lumbar [employer] [id number] / / Imp Scr Set Torres Medt 5.5 To 5.5mm [id number] Implanted:Qty : 8 on 09/21/2020 by Fracisco See MD at [facility] Metallic Hardware/A nchor N/A: Spine Lumbar [employer] [id number] / / Imp Matias Medt Solera Lined 5.6k514eg Chr [id number] Implanted:Qty : 2 on 09/21/2020 by Fracisco See MD at [facility] Metallic Hardware/A nchor N/A: Spine Lumbar [employer] [id number] / / Imp Scr Set Medt Solera Break Off 5.5mm Ti [id number] Implanted:Qty : 10 on 09/21/2020 by Fracisco See MD at [facility] Metallic Hardware/A nchor N/A: Spine Lumbar [employer] [id number] / / [id number] Imp Scr Medt 5.5/6.0mm Solera 7.5x45mm Ma [id number] Implanted:Qty : 1 on 09/21/2020 by Fracisco See MD at [facility] Metallic Hardware/A nchor N/A: Spine Lumbar [employer] [id number] / / [id number] Imp Scr Medt 5.5/6.0mm Solera 7.5x35mm Ma [id number] Implanted:Qty : 1 on 09/21/2020 by Fracisco See MD at [facility] Metallic Hardware/A nchor N/A: Spine Lumbar [employer] [id number] / / [id number] Ifuse Implant System 7.0mm X 90 Mm Implant Implanted:Qty : 1 on 09/21/2020 by Fracisco See MD at [facility] Right: Sacrum [employer] 11/04/2024 7090M-90 / / [id number] Description:SI Joint Ifuse Implant System 7.0mm X 90 Mm Implant Implanted:Qty : 1 on 09/21/2020 by Fracisco See MD at [facility] Left: Sacrum [employer] 03/11/2055 7090M-90 / / [id number] Description:SI Joint 9.5 X 100 Ballast Screw Implanted:Qty : 2 on 09/21/2020 by Fracisco See MD at [facility] N/A: Spine Lumbar [id number] / / Explanted Type Area It Lead Device Identifier Shelf Expiration Date Model / Serial / Lot Imp Scr Medt 5.5/6.0mm Solera 6.5x40mm Ma [id number] Explanted:Qty: 1 on 09/21/2020 by Fracisco See MD at [facility] Metallic Hardware/An chor N/A: Spine Lumbar [employer] [id number] / / [id number] Imp Scr Medt 5.5/6.0mm Solera 7.5x45mm Ma [id number] Explanted:Qty: 1 on 09/21/2020 by Fracisco See MD at [facility] Metallic Hardware/An chor N/A: Spine Lumbar [employer] [id number] / / Imp Scr Medt 5.5/6.0mm Solera 5.5x45mm Ma [id number] Explanted:Qty: 1 on 09/21/2020 by Fracisco See MD at [facility] Metallic Hardware/An chor N/A: Spine Lumbar [employer] [id number] / / [id number] Imp Scr Medt 5.5/6.0mm Solera 5.5x40mm Ma [id number] Explanted:Qty: 1 on 09/21/2020 by Fracisco See MD at [facility] Metallic Hardware/An chor N/A: Spine Lumbar [employer] [id number] / / [id number] Imp Scr Medt 5.5/6.0mm Solera 6.5x30mm Ma [id number] Explanted:Qty: 1 on 09/21/2020 by Fracisco See MD at [facility] Metallic Hardware/An chor N/A: Spine Lumbar [employer] [id number] / / [id number] Posterior Spine Explants Explanted:Qty: 1 on 09/21/2020 by Fracisco See MD at [facility] Bilateral : Spine Lumbar Procedures Procedure Name Priority Date/Time Associated Diagnosis Comments BASIC METABOLIC PANEL Routine 09/28/2020 6:25 AM ROUTE AIDE Pneumonia due to 2019 novel coronavirus DX PERIPHERAL WRIST Routine 07/16/2020 1 :09 PM CDT Other specified disorders of bone density and structure, other site MAMMOGRAM - HIM SCAN 07/18/2019 12:00 AM CDT from Last 3 Months or Most Recently Relevant to Health Maintenance Results * (ABNORMAL) Basic metabolic panel (09/28/2020 6:25 AM ROUTE AIDE) Sodium 141 133 - 144 mmol/L 09/28/2020 7:05 AM ROUTE AIDE [facility] Potassium 4.0 3.4 - 5.3 mmol/L 09/28/2020 7:05 AM ROUTE AIDE [facility] Chloride 110(H) 94 - 109 mmol/L 09/28/2020 7:05 AM ROUTE AIDE [facility] Carbon Dioxide 25 20 - 32 mmol/L 09/28/2020 7:10 AM ROUTE AIDE [facility] Anion Gap 6 3 - 14 mmol/L 09/28/2020 7:10 AM ROUTE AIDE [facility] Glucose 116(H) 70 - 99 mg/dL 09/28/2020 7:10 AM ROUTE AIDE [facility] Urea Nitrogen 11 7 - 30 mg/dL 09/28/2020 7:10 AM ROUTE AIDE [facility] Creatinine 0.53 0.52 - 1.04 mg/dL 09/28/2020 7:10 AM ROUTE AIDE [facility] GFR Estimate >90 >60 mL/min/{1. 73_m2} 09/28/2020 7:10 AM ROUTE AIDE [facility] Comment: Non GFR Calc Starting 11/06/2018, serum creatinine based estimated GFR (eGFR) will be calculated using the Chronic Kidney Disease Epidemiology Collaboration (CKD-EPI) equation. GFR Estimate If Black >90 >60 mL/min/{1. 73_m2} 09/28/2020 7:10 AM ROUTE AIDE [facility] Comment: GFR Calc Starting 11/06/2018, serum creatinine based estimated GFR (eGFR) will be calculated using the Chronic Kidney Disease Epidemiology Collaboration (CKD-EPI) equation. Calcium 8.6 8.5 - 10.1 mg/dL 09/28/2020 7:10 AM ROUTE AIDE [facility] Blood specimen (specimen) 09/28/2020 6:25 AM ROUTE AIDE 09/28/2020 6:26 AM ROUTE AIDE Rajat Moreland MD LAB - BLOOD ORDERABL ES [facility] * Dexa wrist heel (07/16/2020 1:09 PM CDT) Anatomical Region Laterality Modality Dexa Bone Mineral Den sity Narrative 07/20/2020 10:05 AM CDT Results are reported under DXA scan report for the hip/spine performed on the same day. Principal result physician relations specialist: Dante Ocampo MD, CCD Division of Diabetes, Endocrinology and Metabolism [facility] [phone] Fracisco See MD IMG DEXA ORDERABLES * MAMMOGRAM - HIM SCAN (07/18/2019 12:00 AM CDT) Anatomical Region Laterality Modality Other 07/18/2019 Provider Outside IMG MAMMOGRAPHY ORDE RABLES from Last 3 Months or Most Recently Relevant to Health Maintenance Advance Directives For more information, please contact: [phone] * Full Code (Latest Code Status on File) Date Activated Date Inactivated Comments 09/21/2020 9:01 PM 09/30/2020 6:25 PM All basic a nd advanced life-sustaining interventions are performed as appropriate Question Answer Comments Code status determined by: Discussion with patie nt/ legal decision maker Care Teams Roll Slicing Machine Tender Relationship Specialty Start Date End Date Craig Shaikh MD [address] [address] PCP - Orthopaedics 07/14/20 Aaron Arzate MD 420 [facility] [address] [place] [address] PCP - General Family Medicine 10/05/20 Sarah Woods MD 420 [facility] [address] [place] [address] Assigned Pulmonology Provider 09/11/20 [place] [address] [address] Pain Medicine 01/18/23 Vishal Roy MD [address] [place], [place] [address] Pain Medicine 03/09/23 Craig Ku MD [address] [facility] - [id number] [place], [place] [address] Assigned Neuroscience Provider 10/21/23
--- OUTSIDE RECORDS SUMMARY | 2024-05-26 20:55 | XMS_ITS | Continuity of Care Document ---
Author Organization [facility] Address [address] [place] [address] Phone Care Team Providers Care Distance Education Faculty Liaison Name Role Phone Abdirahman AMEZCUA, PhD, Jensen [...] ient Visit,Est, Mod [facility], [address], [place], [id number], [place] tel:[phone] [facility] [place] Arthrodesis status Abdirahman Styles. [facility], [address], [place], [address], [place]. tel:[phone] Referring Provider: [facility] [address] [place], [address]. tel:[phone] Office/Outpat ient Visit,New, Lindy [facility], [address], [place], [place], [id number], [place] tel:[phone] [facility] [place] Other idiopathic scoliosis, thoracic region Abdriahman Styles. [facility], [address], [place], [address], [place]. tel:[phone] Referring Provider: [facility] [address] [place], [address]. tel:[phone] Family History Family Member Type Diagnosis Age At Onset No Information Payers Payer name Insurance type Covered democrat ID Authoriza tion(s) No Information Social History [...]
--- OUTSIDE RECORDS SUMMARY | 2024-05-26 20:55 | XMS_ITS | Encounter Summary ---
Author Organization [facility] Address [address] [place] [address] Care Team Providers Care Customer Advisor Name Role Phone Craig Shaikh MD Unavailable [phone] Fracisco See MD Unavailable [phone] Brian Watkins MD Unavailable [phone] Sarah Woods MD Unavailable [phone] Aaron Arzate MD Primary Care Provider [phone] Beth Cedeno MD Unavailable [phone] Shanda Link PA-C Unavailable [phone] Fracisco See MD Unavailable [phone] Shanda Link PA-C Unavailable [phone] Myron Mcqueen DO Unavailable [phone] Rebecca Taylor DO Unavailable Fracisco See MD Unavailable [phone] Myron Mcqueen DO Unavailable [phone] Caitie Sheth MD Unavailable Vishal Roy MD Unavailable + [phone] Rebecca Taylor DO Unavailable Craig Ku MD Unavailable [phone] Reason for Visit * Reason Onset Date Comments Call Back 11/06/2020 Low fever Encounter Details Date Type Department Care Team (Late st Contact Info) Description 11/06/2020 Telephone [facility] [address] [address] Anupam Washburn MD [facility] [address] [place] [address] Call Back (Low fever) Social History Tobacco Use Types Packs/Day Years Used Date Smoking Tobacco: Never Smokeless Tobacco: Never Alcohol Use Standard Drinks/Week Comments Not Currently 0 (1 standard drink = 0.6 oz pur e alcohol) PHQ-2 Answer Date Recorded PHQ-2 Score 0 08/27/2019 Sex and Gender Information Value Date Recorded Sex Assigned at Not on file Gender Identity Female 10/12/2020 11:38 AM INSPECTOR TUBES Sexual Orientation Not on file COVID-19 Exposure Response Date Recorded In the last month, have you been in contact with someone who was confirmed or suspected to have Coronavirus / COVID-19? No / Unsure 11/06/2020 10:40 AM INSPECTOR TUBES documented as of this encounter Miscellaneous Notes * Telephone Encounter - Roxi Bo RN - 11/06/2020 7:59 PM CST Spoke with patient and gave her cxr results as well discussed patient reporting low grade fever daily for 3 weeks(99.4-99.6). Her recent surgical incision looks good per surgery clinic nurse.She feels much better with neb treatments.She reports small dry cough. Denies lung congestion and wheezing. Beside the low grade fevers patient feels good. She tested positive for COVID Nov with surgical hospitalization. She thinks the low grade fevers are due to COVID. Will message provider with update. ECTOR TUBES * Telephone Encounter - Lenore Tamera - 11/06/2020 1:26 PM CST M [facility] Phone Message May a detailed message be left on voicemail: yes Reason for Call: Other: Pt would like a call to discuss images as well as discuss low fever she keeps getting Action Taken: Message routed to: [facility] Pulm Travel Screening: Not Applicable ECTOR TUBES documented in this encounter Plan of Treatment Upcoming Encounters Date Type Department Care Team (Late st Contact Info) Description 01/07/2025 1:30 PM INSPECTOR TUBES Office Visit [facility] [address] [phone] Sarah Woods MD 420 [facility] [address] [place], [place] [address] documented as of this encounter Visit Diagnoses Not on filedocumented in this encounter Care Teams Customer Advisor Relationship Specialty Start Date End Date Craig Shaikh MD [address] [place] [address] PCP - Orthopaedics 07/14/20 Aaron Arzate MD 420 [facility] [address] [place], [place] [address] PCP - General Family Medicine 10/05/20 Fracisco See MD [address] [place] [address] Assigned Musculoskeletal Provider 09/11/20 05/01/21 Brian [place] MD 420 [facility] [address] [place], [place] [address] Assigned Surgical Provider 09/11/2003/27/21 Sarah Woods MD 420 [facility] [address] [place], [place] [address] Assigned Pulmonology Provider 09/11/20 Beth Cedeno MD [address] [place] [address] Assigned Cancer Care Provider 12/06/20 06/03/22 Shanda Link PA-C [address] [place] [address] Assigned Musculoskeletal Provider 05/02/21 10/09/21 Fracisco See MD [address] [place] [address] Assigned Musculoskeletal Provider 10/10/21 12/18/21 Shanda Link PA-C [address] [place] [address] Assigned Musculoskeletal Provider 12/19/21 05/06/22 Myron Mcqueen DO [address] [place] [address] Assigned Neuroscience Provider 03/27/22 04/02/22 Rebecca Taylor DO RAY Assigned Neuroscience Provider 04/03/22 11/11/22 Fracisco See MD [address] [place] [address] Assigned Musculoskeletal Provider 05/07/22 04/10/24 Myron Mcqueen DO [address] [place] [address] Assigned Neuroscience Provider 11/12/22 09/08/23 [place] [address] [place], [place] [address] Pain Medicine 01/18/23 Vishal Roy MD [address] [place] [address] Pain Medicine 03/09/23 Rebecca Taylor DO RAYUS Assigned Neuroscience Provider 09/09/23 10/20/23 Craig Ku MD 909 [facility] [id number] [place] [address] Assigned Neuroscience Provider 10/21/23 documented as of this encounter
--- OUTSIDE RECORDS SUMMARY | 2024-05-26 20:55 | XMS_ITS | Encounter Summary ---
Author Organization [facility] Address [address] [place] [address]. [place] [address] Care Team Providers Care Emergency Medicine Name Role Phone Craig Shaikh MD Unavailable [phone] Sarah Woods MD Unavailable [phone] Aaron Arzate MD Primary Care Provider [phone] Fracisco See MD Unavailable [phone] Caitie Sheth MD Unavailable Vishal Roy MD Unavailable [phone] Craig Ku MD Unavailable [phone] Encounter Details Date Type Department Care Team (Late st Contact Info) Description 02/09/2024 [facility] [place] [facility] [address] [place] [address] Sarah Woods MD [address] [place] [address] [address] [place] [address] Social History Tobacco Use Types Packs/Day Years [...] file Gender Identity Female 10/12/2020 11:38 AM MANAGER MARITIME Sexual Orientation Not on file documented as of this encounter Plan of Treatment Upcoming Encounters Date Type Department Care Team (Late st Contact Info) Description 01/07/2025 1:30 PM MANAGER MARITIME Office Visit [facility] [address] [phone] Sarah Woods MD [address] [id number] documented as of this encounter Visit Diagnoses Not on filedocumented in this encounter Care Teams Emergency Medicine Relationship Specialty Start Date End Date Craig Shaikh MD [address] [place] [address] [address] PCP - Orthopaedics 07/14/20 Aaron Arzate MD [address] [address]64[address] PCP - General Family Medicine 10/05/20 Sarah Woods MD [address] [phone] Assigned Pulmonology Provider 09/11/20 Fracisco See MD [address] [place], [place] [address] Assigned Musculoskeletal Provider 05/07/22 04/10/24 [place] [address] [facility] [place] [address] Pain Medicine 01/18/23 Vishal Roy MD [address] [address] [address]1095 Pain Medicine 03/09/23 Craig Ku MD 909 [facility] [id number] [address] Assigned Neuroscience Provider 10/21/23 documented as of this encounter
--- OUTSIDE RECORDS SUMMARY | 2024-05-26 20:55 | XMS_ITS | Encounter Summary ---
Author Organization [facility] Address [address] [place] [address]. [place] [address] Care Team Providers Care Conference Specialist Name Role Phone Craig Shaikh MD Unavailable [phone] Sarah Woods MD Unavailable [phone] Aaron Arzate MD Primary Care Provider [phone] Rebecca Taylor DO Unavailable Fracisco See MD Unavailable [phone] Myron Mcqueen DO Unavailable [phone] Caitie Sheth MD Unavailable Vishal Roy MD Unavailable + [phone] Rebecca Taylor DO Unavailable Craig Ku MD Unavailable [phone] Reason for Visit * Reason Comments Medication Refill Encounter Details Date Type Department Care Team (Late st Contact Info) Description [facility] [address] [place] [address] Rebecca Taylor DO RAY Medication Refill Social History Tobacco Use Types Packs/Day Years Used Date Smoking Tobacco: Never Smokeless Tobacco: Never Alcohol Use Standard Drinks/Week Comments Not Currently 0 (1 standard drink = 0.6 oz pur e alcohol) PHQ-2 Answer Date Recorded PHQ-2 Score 0 05/03/2022 Sex and Gender Information Value Date Recorded Sex Assigned at Not on file Gender Identity Female 10/12/2020 11:38 AM 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 No answer. Did not leave message. Will try again later. documented in this encounter Plan of Treatment Upcoming Encounters Date Type Department Care Team (Late st Contact Info) Description 01/07/2025 1:30 PM MARKETING AND PUBLIC RELATIONS MANAGER Office Visit [facility] Science and [address] [phone] Sarah Woods MD [address] [place] [id number] documented as of this encounter Visit Diagnoses Diagnosis Lumbar radiculopathy Thoracic or lumbosacral neuritis or radiculitis, unspecified documented in this encounter Care Teams Conference Specialist Relationship Specialty Start Date End Date Craig Shaikh MD [address] [place] [address] PCP - Orthopaedics 07/14/20 Aaron Arzate MD [address] [place] [address] PCP - General Family Medicine 10/05/20 Sarah Woods MD [address] [place] [address] Assigned Pulmonology Provider 09/11/20 Rebecca Taylor DO RAYUS Assigned Neuroscience Provider 04/03/22 11/11/22 Fracisco See MD [facility] [address] [place] [address] Assigned Musculoskeletal Provider 05/07/22 04/10/24 Myron Mcqueen, DO [address] [facility] [place] [address] Assigned Neuroscience Provider 11/12/22 09/08/23 [place] [address] [place] [address] Pain Medicine 01/18/23 Vishal Roy MD 6545 [facility] [place] [address] Pain Medicine 03/09/23 Rebecca Taylor, DO RAYUS Assigned Neuroscience Provider 09/09/23 10/20/23 Craig Ku MD 9 [facility] [id number] [place] [address] Assigned Neuroscience Provider 10/21/23 documented as of this encounter
--- OUTSIDE RECORDS SUMMARY | 2024-05-26 20:55 | XMS_ITS | Encounter Summary ---
Author Organization [facility] Address [address] [place] [address] Care Team Providers Care Hotel Housekeeper Name Role Phone Craig Shaikh MD Unavailable [phone] Fracisco See MD Unavailable [phone] Brian Watkins MD Unavailable [phone] Sarah Woods MD Unavailable [phone] Aaron Arzate MD Primary Care Provider Beth Cedeno MD Unavailable [phone] Shanda Link PA-C Unavailable [phone] Fracisco See MD Unavailable [phone] Shanda Link PA-C Unavailable [phone] Myron Mcqueen DO Unavailable [phone] Rebecca Taylor DO Unavailable Fracisco See MD Unavailable [phone] Myron Mcqueen DO Unavailable [phone] Caitie Sheth MD Unavailable Vishal Roy MD Unavailable + [phone] Rebecca Taylor DO Unavailable Craig Ku MD Unavailable [phone] Encounter Details Date Type Department Care Team (Late Contact Info) Description 12/29/2020 MyC Medical Advice [facility] [address] 4th [place] [address] Shanda Link PARubénC [address] [place] [address] 700625 Social History Tobacco Use Types Packs/Day Years Used Date Smoking Tobacco: Never Smokeless Tobacco: Never Alcohol Use Standard Drinks/Week Comments Not Currently 0 (1 standard drink = 0.6 oz pur e alcohol) PHQ-2 Answer Date Recorded PHQ-2 Score 0 12/18/2020 Sex and Gender Information Value Date Recorded Sex Assigned at Not on file Gender Identity Female 10/12/2020 11:38 AM NAPPER RUNNER Sexual Orientation Not on file COVID-19 Exposure Response Date Recorded In the last month, have you been in contact with someone who was confirmed or suspected to have Coronavirus / COVID-19? No / Unsure 12/17/2020 10:31 AM NAPPER RUNNER documented as of this encounter Plan of Treatment Upcoming Encounters Date Type Department Care Team (Late Contact Info) Description 01/07/2025 1:30 PM NAPPER RUNNER Office Visit [facility] [address] [phone] Sarah Woods MD [address] [place] [address] 616435 documented as of this encounter Visit Diagnoses Not on filedocumented in this encounter Care Teams Hotel Housekeeper Relationship Specialty Start Date End Date Craig Shaikh MD [address] [place] [address] PCP - Orthopaedics 07/14/20 Aaron Arzate MD [address] [place] [address] 630535 PCP - General Family Medicine 10/05/20 Fracisco See MD [address] [address] Assigned Musculoskeletal Provider 09/11/20 05/01/21 Brian Watkins MD 420 [facility] 207 [place], [place] 182245 Assigned Surgical Provider 09/11/2003/27/21 Sarah Woods MD 420 [facility] 276 [place], [place] 377545 Assigned Pulmonology Provider 09/11/20 Beth Cedeno MD 9 [place], [place] 968295 Assigned Cancer Care Provider 12/06/20 06/03/22 Shanda Link PARubénC [address] [place] [address] Assigned Musculoskeletal Provider 05/02/21 10/09/21 Fracisco See MD [address] [address] Assigned Musculoskeletal Provider 10/10/21 12/18/21 Shanda Link PAAlicia [address] [place] [address] Assigned Musculoskeletal Provider 12/19/21 05/06/22 Myron Mcqueen DO [address] [place] [place] [address] Assigned Neuroscience Provider 03/27/22 04/02/22 Rebecca Taylor, RAYUS Assigned Neuroscience Provider 04/03/22 11/11/22 Fracisco See MD [facility] [address] [place], [place] 95[address] Assigned Musculoskeletal Provider 05/07/22 04/10/24 Myron Mcqueen DO [address] [facility] [facility] [place] [address] Assigned Neuroscience Provider 11/12/22 09/08/23 [place] [address] [place], [place] 460627 Pain Medicine 01/18/23 Vishal Roy MD 6545 [facility] [place] 899775 Pain Medicine 03/09/23 Rebecca Taylor DO RAYUS Assigned Neuroscience Provider 09/09/23 10/20/23 Craig Ku MD 909 [facility] [place] - [id number] [address] Assigned Neuroscience Provider 10/21/23 documented as of this encounter
--- OUTSIDE RECORDS SUMMARY | 2024-05-26 20:55 | XMS_ITS | Encounter Summary ---
Author Organization [facility] Address [address] [place] [address]. [place] [address] Care Team Providers Care Meeting Specialist Name Role Phone Craig Shaikh MD Unavailable [phone] Sarah Woods MD Unavailable [phone] Aaron Arzate MD Primary Care Provider Fracisco See MD Unavailable [phone] Caitie Sheth MD Unavailable Vishal Roy MD Unavailable [phone] Rebecca Taylor DO Unavailable Craig Ku MD Unavailable [phone] Reason for Visit * Reason Onset Date Comments Call Back 10/02/2023 Encounter Details Date Type Department Care Team (Late st Contact Info) Description 10/02/2023 Telephone [facility] [address] [place] [address] Sarah Woods MD 420 [facility] 276 [place] [address] Call Back Social History Tobacco Use Types Packs/Day Years [...] file Gender Identity Female 10/12/2020 11:38 AM DATA ANALYSIS ASSISTANT Sexual Orientation Not on file documented as of this encounter Miscellaneous Notes * Telephone Encounter - Davy Jang RN - 10/03/2023 8:28 AM CST Pt calling to let Dr Woods know that she completed a sleep study on 09/19, which showed significant nocturnal desats. She is going to be set up on CPAP and provided with an oximeter to monitor her sats. Sleep study completed at [facility], I have asked that she have the report and notes faxed to our clinic for Dr Woods's review. Follow up with Dr Woods scheduled for 01/09. ANALYSIS ASSISTANT * Telephone Encounter - Marsha Mckeon - 10/02/2023 4:33 PM CST [facility] Call Center Phone Message May a detailed message be left on voicemail: yes Reason for Call: Other: A sleep study was conducted and results came back that 20% of the time she was at less than 90% lowest was 81% physician thing oxygen at while sleeping may be necessary. Please contact patient with additional quest Action Taken: Other: pulm Travel Screening: Not Applicable ANALYSIS ASSISTANT documented in this encounter Plan of Treatment Upcoming Encounters Date Type Department Care Team (Guero st Contact Info) Description 01/07/2025 1:30 PM DATA ANALYSIS ASSISTANT Office Visit [facility] [address] [place] [address] Sarah Woods MD [address] [place] [address] 456335 documented as of this encounter Visit Diagnoses Not on filedocumented in this encounter Care Teams Meeting Specialist Relationship Specialty Start Date End Date Craig Shaikh MD [address] [place], [place] [address], [place] [address] PCP - Orthopaedics 07/14/20 Aaron Arzate MD 420 [facility] 276 [place] [address] PCP - General Family Medicine 10/05/20 Sarah Woods MD 420 [facility] 276 [place] [address] Assigned Pulmonology Provider 09/11/20 Fracisco See MD [address] [place], [place] 924664 Assigned Musculoskeletal Provider 05/07/22 04/10/24 [place] [address] [place] [address] 035657 Pain Medicine 01/18/23 Vishal Roy MD [address] [place] [address] Pain Medicine 03/09/23 Rebecca Taylor DO RAYUS Assigned Neuroscience Provider 09/09/23 10/20/23 Craig Ku MD 909 [facility] - [id number] [place], [place] 246315 Assigned Neuroscience Provider 10/21/23 documented as of this encounter
--- OUTSIDE RECORDS SUMMARY | 2024-05-26 20:55 | XMS_ITS | Encounter Summary ---
Author Organization [facility] Address [address] [place] [address]. [place] [address] Care Team Providers Care Cleaners Name Role Phone Craig Shaikh MD Unavailable [phone] Sarah Woods MD Unavailable [phone] Aaron Arzate MD Primary Care Provider Fracisco See MD Unavailable [phone] Myron Mcqueen DO Unavailable [phone] Caitie Sheth MD Unavailable Vishal Roy MD Unavailable + [phone] Rebecca Taylor DO Unavailable Craig Ku MD Unavailable [phone] Reason for Visit * Reason Onset Date Comments Call Back 06/07/2023 Encounter Details Date Type Department Care Team (Late st Contact Info) Description 06/07/2023 Telephone [facility] [address] [place] [address] Sarah Woods MD 420 [facility] 276 [place] [address] Call Back Social History Tobacco Use Types Packs/Day Years Used Date Smoking Tobacco: Never Smokeless Tobacco: Never Alcohol Use Standard Drinks/Week Comments Not Currently 0 (1 standard drink = 0.6 oz pur e alcohol) PHQ-2 Answer Date Recorded PHQ-2 Score 0 03/01/2023 Sex and Gender Information Value Date Recorded Sex Assigned at Not on file Gender Identity Female 10/12/2020 11:38 AM 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 Woods would want her to get PFTs since she's beenhaving increasingly hard time breathing and using her Albuterol everyday this summber please contact patient directly with response. thank you Action Taken: Other: Pulm Travel Screening: Not Applicable documented in this encounter Plan of Treatment Upcoming Encounters Date Type Department Care Team (Late st Contact Info) Description 01/07/2025 1:30 PM SHUTTLECOCK FEATHER TRIMMER Office Visit [facility] [address] [phone] Sarah Woods MD [address] 258405 documented as of this encounter Visit Diagnoses Not on filedocumented in this encounter Care Teams Cleaners Relationship Specialty Start Date End Date Craig Shaikh MD [address] [place] [address] PCP - Orthopaedics 07/14/20 Aaron Arzate MD [address] 834785 PCP - General Family Medicine 10/05/20 Sarah Woods MD [address] [id number] Assigned Pulmonology Provider 09/11/20 Fracisco See MD [address] [facility] [address] [place], [place] 217994 Assigned Musculoskeletal Provider 05/07/22 04/10/24 Myron Mcqueen DO [address] [place] [address] Assigned Neuroscience Provider 11/12/22 09/08/23 [place] [address] [facility] [place] [facility] [place] [address] Pain Medicine 01/18/23 Vishal Roy MD [address] [place] [address] Pain Medicine 03/09/23 Rebecca Taylor DO RAYUS Assigned Neuroscience Provider 09/09/23 10/20/23 Craig Ku MD 909 [facility] SE - [id number] [place], [place] [address]205 Assigned Neuroscience Provider 10/21/23 documented as of this encounter
--- OUTSIDE RECORDS SUMMARY | 2024-05-26 20:55 | XMS_ITS | Encounter Summary ---
Author Organization [facility] Address [address] [place] [address]. [place] [address] Care Team Providers Care Bilingual Inside Sales Representative Name Role Phone Craig Shaikh MD Unavailable Sarah Woods MD Unavailable [phone] Aaron Arzate MD Primary Care Provider [phone] Caitie Sheth MD Unavailable Vishal Roy MD Unavailable + [phone] Craig Ku MD Unavailable [phone] Reason for Visit * Reason Comments Medication Refill Encounter Details Date Type Department Care Team (Late st Contact Info) Description 04/26/2024 Refill [facility] [address] [place] [address] Sarah Woods MD [address] [place] [address] 276 [place] [address] Medication Refill Social History Tobacco Use Types [...] file Gender Identity Female 10/12/2020 11:38 AM 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 Lung Science and [address] [phone] Sarah Woods MD [address] 252835 documented as of this encounter Visit Diagnoses Diagnosis Moderate persistent asthma without complication Unspecified asthma Dyspnea on exertion Other dyspnea and respiratory abnormality documented in this encounter Care Teams Bilingual Inside Sales Representative Relationship Specialty Start Date End Date Craig Shaikh MD [address] [place] [address] PCP - Orthopaedics 07/14/20 Aaron Arzate MD [address] [place] [address] 654895 PCP - General Family Medicine 10/05/20 Sarah Woods MD [address] [place] [address] 216475 Assigned Pulmonology Provider 09/11/20 [place] [address] [id number] Pain Medicine 01/18/23 Vishal Roy MD [address]45 [place] [place] 823075 Pain Medicine 03/09/23 Craig Ku MD [address] [place] [address], [place] [address] Assigned Neuroscience Provider 10/21/23 documented as of this encounter
--- OUTSIDE RECORDS SUMMARY | 2024-05-26 20:55 | XMS_ITS | Encounter Summary ---
Author Organization [facility] Address [address] [place] [address]. [place] [address] Care Team Providers Care Asbestos Worker Helper Name Role Phone Craig Shaikh MD Unavailable [phone] Sarah Woods MD Unavailable [phone] Aaron Arzate MD Primary Care Provider Beth Cedeno MD Unavailable [phone] Shanda Link PA-C Unavailable Myron Mcqueen DO Unavailable [phone] Rebecca Taylor DO Unavailable Fracisco See MD Unavailable [phone] Myron Mcqueen DO Unavailable [phone] Caitie Sheth MD Unavailable Vishal Roy MD Unavailable + [phone] Rebecca Taylor DO Unavailable Craig Ku MD Unavailable [phone] Encounter Details Date Type Department Care Team (Late st Contact Info) Description 03/25/2022 [facility] Spine [facility] Neurosurgery [address] [place] [phone] Rebecca Taylor DO RAY Social History Tobacco Use Types Packs/Day Years Used Date Smoking Tobacco: Never Smokeless Tobacco: Never Alcohol Use Standard Drinks/Week Comments Not Currently 0 (1 standard drink = 0.6 oz pur e alcohol) PHQ-2 Answer Date Recorded PHQ-2 Score 0 12/18/2020 Sex and Gender Information Value Date Recorded Sex Assigned at Not on file Gender Identity Female 10/12/2020 11:38 AM BIOMEDICAL 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 No / Unsure 03/24/2022 10:40 AM CDT documented as of this encounter Plan of Treatment Upcoming Encounters Date Type Department Care Team (Late st Contact Info) Description 01/07/2025 1:30 PM BIOMEDICAL EQUIPMENT TECH Office [facility] Lung Science and [address] [phone] Sarah Woods MD [address] [place] [address] 781675 documented as of this encounter Procedures Procedure Name Priority Date/Time Associated Diagnosis Comments EMG - HIM SCAN Routine 03/24/2022 documented in this encounter Results * EMG - HIM Scan (03/24/2022) Rebecca Taylor DO IP NEUR OLOGY ORDERABLES documented in this encounter Visit Diagnoses Not on filedocumented in this encounter Care Teams Asbestos Worker Helper Relationship Specialty Start Date End Date Craig Shaikh MD [address] [address] PCP - Orthopaedics 07/14/20 Aaron Arzate MD [address] [place] [address] 595355 PCP - General Family Medicine 10/05/20 Sarah Woods MD [address] [place] [address] 276 [place] [address] Assigned Pulmonology Provider 09/11/20 Beth Cedeno MD 909 [place] [address] Assigned Cancer Care Provider 12/06/20 06/03/22 Shanda Link PARubénC 9 [place] [address] Assigned Musculoskeletal Provider 12/19/21 05/06/22 Myron Mcqueen DO 1747 [place], [place] [address] Assigned Neuroscience Provider 03/27/22 04/02/22 Rebecca Taylor DO RAYUS Assigned Neuroscience Provider 04/03/22 11/11/22 Fracisco See MD [address] [place] [address] 500254 Assigned Musculoskeletal Provider 05/07/22 04/10/24 Myron Mcqueen DO 1747 [place] [address] Assigned Neuroscience Provider 11/12/22 09/08/23 [place] [address] [facility] [place] [address] Pain Medicine 01/18/23 Vishal Roy MD 6545 [facility] [place] [address] Pain Medicine 03/09/23 Rebecca Taylor DO LINUS Assigned Neuroscience Provider 09/09/23 10/20/23 Craig Ku MD 9 [facility] [id number] [place] [address] Assigned Neuroscience Provider 10/21/23 documented as of this encounter
--- OUTSIDE RECORDS SUMMARY | 2024-05-26 20:56 | XMS_ITS | Encounter Summary ---
Author Organization [facility] Address [address] [place] [address] Care Team Providers Care Decal Maker Name Role Phone May Solo Primary Care Provider Unavailab Craig Rodriguez MD Unavailable [phone] Fracisco See MD Unavailable [phone] Brian Watkins MD Unavailable [phone] Sarah Woods MD Unavailable [phone] Aaron Arzate MD Primary Care Provider Beth Cedeno MD Unavailable [phone] Shanda Link PA-C Unavailable [phone] Fracisco See MD Unavailable [phone] Shanda Link PA-C Unavailable [phone] Myron Mcqueen DO Unavailable [phone] Rebecca Taylor DO Unavailable Fracisco See MD Unavailable [phone] Myron Mcqueen DO Unavailable [phone] Caitie Sheth MD Unavailable Vishal Roy MD Unavailable + [phone] Rebecca Talyor DO Unavailable Craig Ku MD Unavailable [phone] Reason for Visit * Reason Onset Date Comments Appointment 10/02/2019 Pt called to isabel jennile holter monitor and her walk. Not seeing orders and message was sent last week to clinic. Will send another message. Encounter Details Date Type Department Care Team (Late st Contact Info) Description 10/02/2019 Telephone [facility] [address] [place] [address] Brian Watkins MD [address] [place] [address] 207 [place] [address] Appointment ( Pt called to schedule holter monitor and her walk. Not seeing orders and message was sent last week to clinic. Will send another message. 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 Not seeing orders and message was sent last week to clinic. Will send another message. Not sure if It was sent to the correct department. Action Taken: THORACIC CARE COORDINATION-UMP BIAS MACHINE OPERATOR documented in this encounter Plan of Treatment Upcoming Encounters Date Type Department Care Team (Late st Contact Info) Description 01/07/2025 1:30 PM BAND BIAS MACHINE OPERATOR Office Visit [facility] Clinic [address] [address] Sarah Woods MD [address] [place] [address] 276 [place] [address] documented as of this encounter Visit Diagnoses Not on filedocumented in this encounter Additional Health Concerns Infection Onset Date Last Indicated Resolved Time Rule Out COVID-19 09/24/2020 09/24/2020 09/25/2020 11:20 AM BAND BIAS MACHINE OPERATOR Rule Out COVID-19 09/26/2020 09/26/2020 09/27/2020 12:59 PM BAND BIAS MACHINE OPERATOR COVID-19 09/26/2020 09/26/2020 10/17/2020 11:4 1 PM BAND BIAS MACHINE OPERATOR documented as of this encounter Care Teams Decal Maker Relationship Specialty Start Date End Date May Solo PCP - General 05/07/12 10/04/20 Craig Shaikh MD [address] [address] PCP - Orthopaedics 07/14/20 Aaron Arzate MD 420 [facility] 276 [place], [place] [address] PCP - General Family Medicine 10/05/20 Fracisco See MD [address] [place], [place] [address] Assigned Musculoskeletal Provider 09/11/20 05/01/21 Brian Watkins MD 420 [facility] 207 [place], [place] 293435 Assigned Surgical Provider 09/11/2003/27/21 Sarah Woods MD 420 [facility] 276 [place], [place] 902885 Assigned Pulmonology Provider 09/11/20 Beth Cedeno MD [address] [place] [address] 150875 Assigned Cancer Care Provider 12/06/20 06/03/22 Shanda Link PA-C [address] [place] [address] Assigned Musculoskeletal Provider 05/02/21 10/09/21 Fracisco See MD [address] [address] Assigned Musculoskeletal Provider 10/10/21 12/18/21 Shanda Link PA-C [address] [place] [address] Assigned Musculoskeletal Provider 12/19/21 05/06/22 Myron Mcqueen DO [address] [place] [address] Assigned Neuroscience Provider 03/27/22 04/02/22 Rebecca Taylor DO RAY Assigned Neuroscience Provider 04/03/22 11/11/22 Fracisco See MD [address] [address] Assigned Musculoskeletal Provider 05/07/22 04/10/24 Myron Mcqueen DO 1747 [place] [address] Assigned Neuroscience Provider 11/12/22 09/08/23 [place] [address] [place] [address] Pain Medicine 01/18/23 Vishal Roy MD [address] [place] [place] [address] Pain Medicine 03/09/23 Rebecca Taylor DO RAY Assigned Neuroscience Provider 09/09/23 10/20/23 Craig Ku MD 909 [facility] [id number] [place] [address] Assigned Neuroscience Provider 10/21/23 documented as of this encounter
--- OUTSIDE RECORDS SUMMARY | 2024-05-26 20:56 | XMS_ITS | Encounter Summary ---
Author Organization [facility] Address [address] [place] [address] Care Team Providers Care Retail Special Event Associate Name Role Phone May Solo Primary Care Provider Unavailab Craig Rodriguez MD Unavailable [phone] Fracisco See MD Unavailable [phone] Brian Watkins MD Unavailable [phone] Sarah Woods MD Unavailable [phone] Aaron Arzate MD Primary Care Provider Beth Cedeno MD Unavailable [phone] Shanda Link PA-C Unavailable [phone] Fracisco See MD Unavailable [phone] Shanda Link PA-C Unavailable [phone] Myron Mcqueen DO Unavailable [phone] Rebecca Taylor DO Unavailable Fracisco See MD Unavailable [phone] Myron Mcqueen DO Unavailable [phone] Caitie Sheth MD Unavailable Vishal Roy MD Unavailable + [phone] Rebecca Taylor DO Unavailable Craig Ku MD Unavailable Reason for Referral * Diagnostic Imaging CT Scan (Routine) - Closed Specialty Diagnoses / Procedures Referred By Contac t Referred To Contact Radiology. Diagnoses Lung nodule Procedures CT Chest w/o Contrast Sarah Woods MD [address] [place] [address] Scan [facility] [address] [facility] [address] [place] [address] Referral ID Status Reason Start Date Expiration Date Visits Re quested Visits Authorized [id number] Closed 09/19/2019 09/18/2020 1 1 Reason for Visit * Reason Onset Date Comments Call Back 09/19/2019 Encounter Details Date Type Department Care Team (Late st Contact Info) Description 09/19/2019 Telephone [facility] [address] [phone] Sarah Woods MD [address] [place] [address] Call Back Social History Tobacco Use Types Packs/Day Years Used Date Smoking Tobacco: Never Smokeless Tobacco: Never PHQ-2 Answer Date Recorded PHQ-2 Score 0 08/27/2019 Sex and Gender Information Value Date Recorded Sex Assigned at Not on file Gender Identity Female 10/12/2020 11:38 AM RESEARCH ELECTRICIAN Sexual Orientation Not on file documented as of this encounter Miscellaneous Notes * Telephone Encounter - Israel Smart - 09/19/2019 6:53 PM CDT Consult for Symptomatic Diaphragm Dysfunction. Thanks! * Telephone Encounter - Israel Smart - 09/19/2019 5:59 PM CDT Please schedule patient for Thoracic Surgery Consult. Thank you! * Telephone Encounter - Davy Jang RN - 09/19/2019 3:42 PM CDT Message sent to coordinators to assist with thoracic surgery scheduling and follow up appointments. * Telephone Encounter - Sarah Woods MD - 09/19/2019 2:41 PM CDT I called patient to clarify recommendations: 1. Thoracic surgery referral for diaphragm dysfunction 2. Repeat CT in 6 months 3. Follow up visit with me in 6 months for ongoing asthma management. * Telephone Encounter - Cristine Horowitz - 09/19/2019 2:15 PM CDT [facility] Call Center Phone Message May a detailed message be left on voicemail: yes Reason for Call: Other: Pt requesting call back. Pt stated she spoke with a nurse last week who wasgoing to give her a call this week about scheduling an appt with a thoracic surgeon. Pt also would like to discuss her appt that she has scheduled with Dr. Woods in November, pt stated that is too far out, that she needs to be seen sooner Action Taken: Message routed to: [facility] pulm documented in this encounter Plan of Treatment Upcoming Encounters Date Type Department Care Team (Late st Contact Info) Description 01/07/2025 1:30 PM RESEARCH ELECTRICIAN Office Visit [facility] [address] [place] [place] [address] Sarah Woods MD [address] [place] [address] [id number] documented as of this encounter Results * CT Chest w/o Contrast (10/23/2019 9:35 AM RESEARCH ELECTRICIAN) Anatomical Region Laterality Modality Chest, SUBRAD CT BODY, UMP CT CHEST, RAD CT Computed Tomography Impressions 10/23/2019 1:33 PM RESEARCH ELECTRICIAN IMPRESSION: Stable pulmonary nodules. Recommendations for an incidental lung nodule > or = 6mm to < 8mm: ??Low risk patients: Initial follow-up CT at 6-12 months, then consider CT at 18-24 months if no change. ??High risk patients: Initial follow-up CT at 6-12 months, then CT at 18-24 months if no change. *Low Risk: Minimal or absent history of smoking or other known risk factors. *Nonsolid (ground-glass) or partly solid nodules may require longer follow-up to exclude indolent adenocarcinoma. *Recommendations based on Guidelines for the Management of Incidental Pulmonary Nodules Detected at CT: From the Fleischner Society 2017, Radiology 2017. ADARSH HERRERA MD Narrative 10/23/2019 1:[address] CHEST WITHOUT CONTRAST October 23, 2019 9:35 AM HISTORY: Lung nodule. COMPARISON: September 14, 2019. TECHNIQUE: Volumetric helical acquisition of CT images of the chest from the clavicles to the kidneys were acquired without IV contrast. Radiation dose for this scan was reduced using automated exposure control, adjustment of the mA and/or kV according to patient size, or iterative reconstruction technique. FINDINGS: 7 mm nodule versus nodular fibrosis in the costophrenic sulcus laterally on the left is unchanged. Small fissural nodule on the right is unchanged on image 168 series 4. 4 mm nodule in the left lower lobe image 223 series 4 is unchanged. Scattered atelectasis and/or fibrosis. Scattered bronchiectasis. No pleural or pericardial effusion. Unremarkable caliber aorta. Normal heart size. No acute findings in the visualized upper abdomen. Spine fusion changes and scoliosis again evident. Procedure Note Adarsh Herrera MD - 10/23/2019 CT CHEST WITHOUT CONTRAST October 23, 2019 9:35 AM HISTORY: Lung nodule. COMPARISON: September 14, 2019. TECHNIQUE: Volumetric helical acquisition of CT images of the chest from the clavicles to the kidneys were acquired without IV contrast. Radiation dose for this scan was reduced using automated exposure control, adjustment of the mA and/or kV according to patient size, or iterative reconstruction technique. FINDINGS: 7 mm nodule versus nodular fibrosis in the costophrenic sulcus laterally on the left is unchanged. Small fissural nodule on the right is unchanged on image 168 series 4. 4 mm nodule in the left lower lobe image 223 series 4 is unchanged. Scattered atelectasis and/or fibrosis. Scattered bronchiectasis. No pleural or pericardial effusion. Unremarkable caliber aorta. Normal heart size. No acute findings in the visualized upper abdomen. Spine fusion changes and scoliosis again evident. IMPRESSION: Stable pulmonary nodules. Recommendations for an incidental lung nodule > or = 6mm to < 8mm: Low risk patients: Initial follow-up CT at 6-12 months, then consider CT at 18-24 months if no change. High risk patients: Initial follow-up CT at 6-12 months, then CT at 18-24 months if no change. *Low Risk: Minimal or absent history of smoking or other known risk factors. *Nonsolid (ground-glass) or partly solid nodules may require longer follow-up to exclude indolent adenocarcinoma. *Recommendations based on Guidelines for the Management of Incidental Pulmonary Nodules Detected at CT: From the Fleischner Society 2017, Radiology 2017. ADARSH HERRERA MD Sarah Woods MD IMG CT ORDERABLES documented in this encounter Visit Diagnoses Diagnosis Lung nodule- Primary Solitary pulmonary nodule Lung nodule Solitary pulmonary nodule documented in this encounter Additional Health Concerns Infection Onset Date Last Indicated Resolved Time Rule Out COVID-19 09/24/2020 09/24/2020 09/25/2020 11:20 AM RESEARCH ELECTRICIAN Rule Out COVID-19 09/26/2020 09/26/2020 09/27/2020 12:59 PM RESEARCH ELECTRICIAN COVID-19 09/26/2020 09/26/2020 10/17/2020 11:4 1 PM RESEARCH ELECTRICIAN documented as of this encounter Care Teams Retail Special Event Associate Relationship Specialty Start Date End Date May Solo PCP - General 05/07/12 10/04/20 Craig Shaikh MD [address] [address] PCP - Orthopaedics 07/14/20 Aaron Arzate MD [address] [address] PCP - General Family Medicine 10/05/20 Fracisco See MD [address] [address] Assigned Musculoskeletal Provider 09/11/20 05/01/21 Brian Watkins MD 420 [facility] [address] [place], [place] [address] Assigned Surgical Provider 09/11/2003/27/21 Sarah Woods MD 420 [facility] [address] [place], [place] 4835[address] Assigned Pulmonology Provider 09/11/20 Beth Cedeno MD [address] [place] [address] 601105 Assigned Cancer Care Provider 12/06/20 06/03/22 Shanda Link PA-C [address] [place] [address] Assigned Musculoskeletal Provider 05/02/21 10/09/21 Fracisco See MD [address] [address] Assigned Musculoskeletal Provider 10/10/21 12/18/21 Shanda Link PA-C [address] [place] [address] [id number] Assigned Musculoskeletal Provider 12/19/21 05/06/22 Myron Mcqueen DO [address] [place] [address] [id number] Assigned Neuroscience Provider 03/27/22 04/02/22 Rebecca Taylor DO RAYUS Assigned Neuroscience Provider 04/03/22 11/11/22 Fracisco See MD [facility] [place], [place] [address] Assigned Musculoskeletal Provider 05/07/22 04/10/24 Myron Mcqueen DO [address] [place] [id number] Assigned Neuroscience Provider 11/12/22 09/08/23 [place] [address] [place], [place] 29[address] Pain Medicine 01/18/23 Vishal Roy MD [address] [place] 964335 Pain Medicine 03/09/23 Rebecca Taylor DO RAYUS Assigned Neuroscience Provider 09/09/23 10/20/23 Craig Ku MD [address] [facility] [id number] [place], [place] [address] Assigned Neuroscience Provider 10/21/23 documented as of this encounter
--- OUTSIDE RECORDS SUMMARY | 2024-05-26 20:56 | XMS_ITS | Encounter Summary ---
Author Organization [facility] Address [address] [place] [address] Care Team Providers Care Radar Technician Name Role Phone May Solo Primary Care Provider Unavailab Craig Rodriguez MD Unavailable [phone] Fracisco See MD Unavailable [phone] Brian Watkins MD Unavailable [phone] Sarah Woods MD Unavailable [phone] Aaron Arzate MD Primary Care Provider [phone] Beth Cedeno MD Unavailable [phone] Shanda Link PA-C Unavailable [phone] Fracsico See MD Unavailable [phone] Shanda Link PA-C Unavailable [phone] Myron Mcqueen DO Unavailable [phone] Rebecca Taylor DO Unavailable Fracisco See MD Unavailable [phone] Myron Mcqueen DO Unavailable [phone] Caitie Sheth MD Unavailable Vishal Roy MD Unavailable + [phone] Rebecca Taylor DO Unavailable Craig Ku MD Unavailable Reason for Referral * Diagnostic Imaging CT Scan (Routine) - Closed Specialty Diagnoses / Procedures Referred By Contac t Referred To Contact Radiology. Diagnoses Diaphragm paralysis Procedures CT Chest w contrast* Sarah Woods MD [address] [place] [address] [facility] [address] [place] [address] Referral ID Status Reason Start Date Expiration Date Visits Re quested Visits Authorized [id number] Closed 09/02/2019 09/01/2020 1 1 Reason for Visit * Reason Onset Date Comments Orders 08/29/2019 CT Chest w/ Cont rast, PFTs Encounter Details Date Type Department Care Team (Late st Contact Info) Description 08/29/2019 Telephone [facility] [address] [phone] Sarah Woods MD [address] [place] [id number] Orders (CT Chest w/ Contrast, PFTs) Social History Tobacco Use Types Packs/Day Years Used Date Smoking Tobacco: Never Smokeless Tobacco: Never PHQ-2 Answer Date Recorded PHQ-2 Score 0 08/27/2019 Sex and Gender Information Value Date Recorded Sex Assigned at Not on file Gender Identity Female 10/12/2020 11:38 AM RADIO ENGINEER Sexual Orientation Not on file documented as of this encounter Miscellaneous Notes * Telephone Encounter - Sarah Woods MD - 09/11/2019 9:23 PM CDT My apologies for the delay. The results show she might benefit from surgical consultation to repairthe diaphragm. There was a 20% decline in lung function when lying down. CT scan did not show anything concerning, a tiny lung nodule that is probably nothing but we need to repeat in 6-12 months. * Telephone Encounter - Davy Jang RN - 09/09/2019 11:24 AM CDT Contacted pt to advise that we are still waiting for final read on PFTs. Will message Dr. Woods to review results. Pt would like call back on cell. * Telephone Encounter - Mitzi Sales - 09/09/2019 10:27 AM CDT [facility] Phone Message May a detailed message be left on voicemail: yes Reason for Call: Pt called again regarding results from PFT and CT Scan done last week and would like a call back today. Action Taken: Message routed to: [facility] ([facility] * Telephone Encounter - Davy Jang RN - 09/02/2019 9:52 AM CDT Reviewed with . Orders placed for CT with contrast and PFT pre & post seated and supine. Message to coordinator to assist with scheduling. * Telephone Encounter - Asmita Avila - 08/31/2019 11:14 AM CDT [facility] Phone Message May a detailed message be left on voicemail: yes Reason for Call: Other: Pt is calling back about the PFT and the CT scan with contrast, pt stated she called on the and no one has called her back. Please call pt Action Taken: Message routed to: [facility] ([facility] * Telephone Encounter - Shayan Snyder - 08/29/2019 2:41 PM CDT [facility] Phone Message May a detailed message be left on voicemail: no Reason for Call: Other: Pt said she got a voicemail about getting a CT scan w/ contrast, and some PFTs, both vertical/supine. Pt said she spoke with someone in the clinic and she was told the orders would be placed. No documentation nor orders written/placed. Please place into Epic [facility] [facility] and call her to confirm they're completed. Action Taken: Message routed to: [facility] documented in this encounter Plan of Treatment Upcoming Encounters Date Type Department Care Team (Late st Contact Info) Description 01/07/2025 1:30 PM RADIO ENGINEER Office Visit [facility] [address] [place] [address] Sarah Woods MD [address] [place] [address] documented as of this encounter Results * Pulmonary Function Test (09/05/2019 2:30 PM CDT) FVC-Pred 2.97 L [facility] PFT FVC-Pre 2.27 L [facility] PFT FVC-%Pred-Pre 76 % [facility] PFT FEV1-Pre 1.82 L [facility] PFT FEV1-%Pred-Pre 78 % [facility]ZE PFT [id number] 78 % [facility]ZE PFT [id number]-Lyt 80 % [facility]REEZE PFT FEFMax-Pred 5.87 L/sec BREEZE PFT FEFMax-Pre 6.93 L/sec BREEZE PFT FEFMax-%Pred-Pr e 118 % BREEZE PFT [id number]-Rydl 1.97 L/sec BREEZE PFT [id number]-Rgv 1.72 L/sec BREEZE PFT WZT6117-%Pred-P re 87 % BREEZE PFT [id number]-Nwin 0.37 L/sec BREEZE PFT [id number]-%Pred-P ost 18 % BREEZE PFT ExpTime-Pre 7.07 sec BREEZE PFT FIFMax-Pre 4.48 L/sec BREEZE PFT UTR2KRQ1-Nnnr 79 % BREEZE PFT [id number]-Iwe 80 % BREEZE PFT 09/05/2019 2:30 PM CDT Narrative BREEZE PFT - 09/10/2019 1:39 PM CDT The FEV1, FVC, and FEV1/FVC ratio are normal in sitting position. ??FVC fell by 22 percent in the supine position which is suggestive of diaphragmatic weakness. IMPRESSION: Normal sitting spirometry with significant decrease in supine position. M.DMaryann Deleon ?This interpretation has been electronically signed: ??MARYANN ELLISON 09/10/2019 ??01:21:41 PM? Sarah Woods MD PFT ORDERABLES BREBONITA PFT * CT Chest w contrast* (09/04/2019 10:08 AM CDT) Anatomical Region Laterality Modality Chest, SUBRAD CT BODY, UMP CT CHEST, RAD CT Computed Tomography Impressions 09/04/2019 4:25 PM CDT IMPRESSION: 1. No adenopathy. No convincing acute pulmonary disease or pleural effusion. 2. Scattered linear densities consistent with fibrosis or minimal discoid atelectasis. Minimal opacity at the posterolateral left lung may be mild infiltrate, series 4 image 42 and series 3 image 42. 3. Right perifissural nodule or node and 0.7 cm nodular density at the lateral left lung base. Recommendations for an incidental lung nodule = or > 6mm to 8mm: ??Low risk patients: Initial follow-up CT [...] From the Fleischner Society 2017, Radiology 2017. TANIA PIÑA MD Narrative 09/04/2019 4:[address] CHEST WITH CONTRAST ??09/04/2019 10:08 AM HISTORY: ??Right hemidiaphragm paralysis with dyspnea. TECHNIQUE: Axial images from thoracic inlet to diaphragm. With IV contrast, 80 mL Isovue-370. Radiation dose for this scan was reduced using automated exposure control, adjustment of the mA and/or kV according to patient size, or iterative reconstruction technique. COMPARISON: 06/14/2019 chest x-ray. FINDINGS: ??Left thyroid nodule 1.3 cm craniocaudal dimension with calcifications along its lateral margin. Consider ultrasound for further evaluation. No mediastinal, hilar, or axillary adenopathy. ??Series 3 image 94: 0.6 cm right perifissural nodule versus fissural lymph node. Mild linear and mild focal opacity at the posterolateral left lower lobe (series 7 image 205) consistent with atelectasis or very mild infiltrate. Subcentimeter calcified nodule peripheral left lung base, series 7 image 218. Indeterminate lateral left lung base nodule, series 7 images 225/227, 0.7 cm in size. Atelectasis posterior lingula and scattered linear fibrosis or atelectasis lower lungs. No pleural effusion or acute-appearing airspace opacity. Cholecystectomy clips and postop changes thoracic and lumbar spine with spinal rods and thoracolumbar scoliosis. No aggressive-appearing bone lesions. Procedure Note Tania Piña MD - 09/04/2019 CT CHEST WITH CONTRAST 09/04/2019 10:08 AM HISTORY: Right hemidiaphragm paralysis with dyspnea. TECHNIQUE: Axial images from thoracic inlet to diaphragm. With IV contrast, 80 mL Isovue-370. Radiation dose for this scan was reduced using automated exposure control, adjustment of the mA and/or kV according to patient size, or iterative reconstruction technique. COMPARISON: 06/14/2019 chest x-ray. FINDINGS: Left thyroid nodule 1.3 cm craniocaudal dimension with calcifications along its lateral margin. Consider ultrasound for further evaluation. No mediastinal, hilar, or axillary adenopathy. Series 3 image 94: 0.6 cm right perifissural nodule versus fissural lymph node. Mild linear and mild focal opacity at the posterolateral left lower lobe (series 7 image 205) consistent with atelectasis or very mild infiltrate. Subcentimeter calcified nodule peripheral left lung base, series 7 image 218. Indeterminate lateral left lung base nodule, series 7 images 225/227, 0.7 cm in size. Atelectasis posterior lingula and scattered linear fibrosis or atelectasis lower lungs. No pleural effusion or acute-appearing airspace opacity. Cholecystectomy clips and postop changes thoracic and lumbar spine with spinal rods and thoracolumbar scoliosis. No aggressive-appearing bone lesions. IMPRESSION: 1. No adenopathy. No convincing acute pulmonary disease or pleural effusion. 2. Scattered linear densities consistent with fibrosis or minimal discoid atelectasis. Minimal opacity at the posterolateral left lung may be mild infiltrate, series 4 image 42 and series 3 image 42. 3. Right perifissural nodule or node and 0.7 cm nodular density at the lateral left lung base. Recommendations for an incidental lung nodule = or > 6mm to 8mm: Low risk patients: Initial follow-up CT [...] From the Fleischner Society 2017, Radiology 2017. TANIA PIÑA MD Sarah Woods MD IMG CT ORDERABLES documented in this encounter Visit Diagnoses Diagnosis Diaphragm paralysis- Primary Disorders of diaphragm Diaphragm paralysis Disorders of diaphragm Diaphragm paralysis Disorders of diaphragm documented in this encounter Additional Health Concerns Infection Onset Date Last Indicated Resolved Time Rule Out COVID-19 09/24/2020 09/24/2020 09/25/2020 11:20 AM RADIO ENGINEER Rule Out COVID-19 09/26/2020 09/26/2020 09/27/2020 12:59 PM RADIO ENGINEER COVID-19 09/26/2020 09/26/202010/17/2020 11:4 1 PM RADIO ENGINEER documented as of this encounter Care Teams Radar Technician Relationship Specialty Start Date End Date May Solo PCP - General 05/07/12 10/04/20 Craig Shaikh MD [address] [place] [address] PCP - Orthopaedics 07/14/20 Aaron Arzate MD [address] [facility] [address] [place], [place] [address] PCP - General Family Medicine 10/05/20 Fracisco See MD [address] [place] [address] [address] [place], [place] 5345[address] Assigned Musculoskeletal Provider 09/11/20 05/01/21 Brian Watkins MD [address] [facility] [address] [place], [place] 268[address] Assigned Surgical Provider 09/11/2003/27/21 Sarah Woods MD [address] [place] [address] 276 [place], [place] 379[address] Assigned Pulmonology Provider 09/11/20 Beth Cedeno MD [address] [place] [address] [id number] Assigned Cancer Care Provider 12/06/20 06/03/22 Shanda Link PA-C [address] [place] [address] 675745 Assigned Musculoskeletal Provider 05/02/21 10/09/21 Fracisco See MD [address] [facility] [address] [place] [address] Assigned Musculoskeletal Provider 10/10/21 12/18/21 Shanda Link PA-C [address] [place] [address] Assigned Musculoskeletal Provider 12/19/21 05/06/22 Myron Mcqueen DO [address] [facility] [place] [address] Assigned Neuroscience Provider 03/27/22 04/02/22 Rebecca Taylor DO RAYUS Assigned Neuroscience Provider 04/03/22 11/11/22 Fracisco See MD [facility] [address] [facility] [address] [place] [address] Assigned Musculoskeletal Provider 05/07/22 04/10/24 Myron Mcqueen DO [address] [place] [address] Assigned Neuroscience Provider 11/12/22 09/08/23 [place] [address] [address] [id number] Pain Medicine 01/18/23 Vishal Roy MD [address] [address] Pain Medicine 03/09/23 Rebecca Taylor DO RAYUS Assigned Neuroscience Provider 09/09/23 10/20/23 Craig Ku MD 9 [facility] [place] [address] Assigned Neuroscience Provider 10/21/23 documented as of this encounter
--- OUTSIDE RECORDS SUMMARY | 2024-05-26 20:56 | XMS_ITS | Encounter Summary ---
Author Organization [facility] Address [address] [place] [address] Care Team Providers Care Quality Improvement Engineer Name Role Phone May Solo Primary Care Provider Unavailab Craig Rodirguez MD Unavailable [phone] Fracisco See MD Unavailable [phone] Brian Watkins MD Unavailable [phone] Sarah Woods MD Unavailable [phone] Aaron Arzate MD Primary Care Provider Beth Cedeno MD Unavailable [phone] Shanda Link PA-C Unavailable [phone] Fracisco See MD Unavailable [phone] Shanda Link PA-C Unavailable [phone] Myron Mcqueen DO Unavailable [phone] Rebecca Taylor DO Unavailable Fracisco See MD Unavailable [phone] Myron Mcqueen DO Unavailable [phone] Caitie Sheth MD Unavailable Vishal Roy MD Unavailable + [phone] Rebecca Taylor DO Unavailable Craig Ku MD Unavailable [phone] Encounter Details Date Type Department Care Team (Late st Contact Info) Description 11/15/2019 MyC Medical Advice [facility] [address] [phone] Sarah Woods MD [address] [place] [address] [id number] Social History Tobacco Use Types Packs/Day Years Used Date Smoking Tobacco: Never Smokeless Tobacco: Never PHQ-2 Answer Date Recorded PHQ-2 Score 0 08/27/2019 Sex and Gender Information Value Date Recorded Sex Assigned at Not on file Gender Identity Female 10/12/2020 11:38 AM TOP LIFT COMPRESSOR Sexual Orientation Not on file documented as of this encounter Miscellaneous Notes * Telephone Encounter - Jocelyn Avila - 11/18/2019 8:47 AM CST Spoke with pt and she stated she had the Holter Monitor done at [facility]. Provided their number to call to get results. LIFT COMPRESSOR documented in this encounter Plan of Treatment Upcoming Encounters Date Type Department Care Team (Late st Contact Info) Description 01/07/2025 1:30 PM TOP LIFT COMPRESSOR Office Visit [facility] Science [facility] [address] [phone] Sarah Woods MD [address] [place] [address] [phone] documented as of this encounter Visit Diagnoses Not on filedocumented in this encounter Additional Health Concerns Infection Onset Date Last Indicated Resolved Time Rule Out COVID-19 09/24/2020 09/24/2020 09/25/2020 11:20 AM TOP LIFT COMPRESSOR Rule Out COVID-19 09/26/2020 09/26/2020 09/27/2020 12:59 PM TOP LIFT COMPRESSOR COVID-19 09/26/2020 09/26/2020 10/17/2020 11:4 1 PM TOP LIFT COMPRESSOR documented as of this encounter Care Teams Quality Improvement Engineer Relationship Specialty Start Date End Date May Solo PCP - General 05/07/12 10/04/20 Craig Shaikh MD [address] [place] [address] [place] [address] PCP - Orthopaedics 07/14/20 Aaron Arzate MD [address] [place] [address] [id number] PCP - General Family Medicine 10/05/20 Fracisco See MD [address] [place] [address] [id number] Assigned Musculoskeletal Provider 09/11/20 05/01/21 Brian Watkins MD [address] [place] [address] [id number] Assigned Surgical Provider 09/11/2003/27/21 Sarah Woods MD [address] [place] [address] [id number] Assigned Pulmonology Provider 09/11/20 Beth Cedeno MD [address] [place] [place] [address] [id number] Assigned Cancer Care Provider 12/06/20 06/03/22 Shanda Link PA-C [address] [place] [address] Assigned Musculoskeletal Provider 05/02/21 10/09/21 Fracisco See MD [facility] [address] [phone] Assigned Musculoskeletal Provider 10/10/21 12/18/21 Shanda Link PA-C [address] [place] [address] Assigned Musculoskeletal Provider 12/19/21 05/06/22 Myron Mcqueen DO [address] [facility] [place] [address] Assigned Neuroscience Provider 03/27/22 04/02/22 Rebecca Taylor DO RAYUS Assigned Neuroscience Provider 04/03/22 11/11/22 Fracisco See MD [address] [place] [address] Assigned Musculoskeletal Provider 05/07/22 04/10/24 Myron Mcqueen DO [address] [place] [address] Assigned Neuroscience Provider 11/12/22 09/08/23 [place] [address] [place] [id number] Pain Medicine 01/18/23 Vishal Roy MD [address] [id number] Pain Medicine 03/09/23 Rebecca Taylor DO RAYUS Assigned Neuroscience Provider 09/09/23 10/20/23 Craig Ku MD [address] [facility] [id number] [place] [address] Assigned Neuroscience Provider 10/21/23 documented as of this encounter
--- OUTSIDE RECORDS SUMMARY | 2024-05-26 20:56 | XMS_ITS | Clinical Summary ---
Author Organization [facility] Address [place], [place] [address] Care Team Providers Care Sandfill Operator Surface Name Role Phone Waldemar Arzate MD Primary Care Provider [phone] Allergies Active Allergy Reactions Criticality Noted Date Comments Lisinopril Cough 12/24/2019 Medications Medication Sig Dispensed Refills Start Date End Date Status budesonide/formoterol fumarate (SYMBICORT INHL) Inhale 2 Puffs by mouth 2 times daily. Active montelukast (SINGULAIR) 10 mg tablet Take 10 mg by mouth. 3 09/17/2018 Active aspirin (ECOTRIN) 81 mg enteric coated tabletIndications:Cande rtness of breath,Pulmonary embolism, unspecified chronicity, unspecified pulmonary embolism type, unspecified whether acute cor pulmonale present (HC) Take 1 Tablet (81 mg) by mouth once daily with a meal. 30 Tablet 11 04/28/2021 Active hydroCHLOROthiazide (HCTZ) 25 mg tablet Take 25 mg by mouth once daily. 12/05/2021 Active albuterol HFA (PRO-AIR; VENTOLIN; PROVENTIL) 90 mcg/actuation inhaler INHALE 2 PUFFS BY MOUTH EVERY 4 TO 6 HOURS NEEDED 09/27/2021 Active rosuvastatin (CRESTOR) 5 mg tabletIndications:Sravanthi vated coronary artery calcium score Take 1 Tablet (5 mg) by mouth at bedtime. 90 Tablet 06/10/2022 Active gabapentin (NEURONTIN) 300 mg capsule Take 2 Capsules (600 mg) by mouth three times daily. 0 08/29/2022 Active Active Problems Problem Noted Date Diagnosed Date Elevated coronary artery calcium score 9 Sesamoiditis 02/09/2009 Social History Tobacco Use Types Packs/Day Years Used Date Smoking Tobacco: Never Smokeless Tobacco: Never Tobacco Cessation:Counseling Given: Yes Alcohol Use Standard Drinks/Week Comments No 0 (1 standard drink = 0.6 oz pur e alcohol) Social Connections Answer Date Recorded Frequency of Communication with Friends and Fami ly Not on file 11/11/2021 Financial Resource Strain Answer Date R ecorded Difficulty of Paying Living Expenses Not on file 11/11/2021 Difficulty of Paying Living Expenses Not on file 11/11/2021 Sex and Gender Information Value Date Recorded Sex Assigned at Not on file Gender Identity Not on file Sexual Orientation Not on file Obstetrics History Last Filed Vital Signs Vital Sign Reading Time Taken Comments Blood Pressure 125/80 08/30/2022 1:21 PM CDT Pulse 76 08/30/2022 1:21 PM CDT Temperature - - Respiratory Rate - - Oxygen Saturation 96% 08/30/2022 1:21 PM CDT Inhaled Oxygen Concentration - - Weight 85.1 kg (187 lb 9.6 oz) 08/30/2022 1:21 P M CDT Height 162.6 cm (5' 4) 08/30/2022 1:21 PM CDT Body Mass Index 32.2 08/30/2022 1:21 PM CDT Plan of Treatment Health Maintenance Due Date Last Done Comments Tdap 1961 Depression screening for age 12+ 1962 Hepatitis C screening for ag e 18-79 1968 Tetanus booster 1970 Colonoscopy through age 75 1995 Mammogram for age 45-75 1995 Zoster (shingles) series for age 50+ (1 of 2) 2000 DEXA/DXA scan for age 65+ 2015 Medicare Wellness for age 65+ 2015 Pneumococcal series for age 65+ (1 of 1 - PCV) 2015 COVID-19 vaccine series ( - 2022- season) 2023 04/13/2022, 10/05/2021, 02/12/2021, Additional history exists BMI (ht and wt on same day) for age 18+ 08/30/2023 08/30/2022, 07/22/2021, 12/30/2019, Additional history exists Influenza for age 65+ 07/21/2024 Lipids for age 45-75 12/30/2024 12/30/2019, 01/01/20 18 Procedures Procedure Name Priority Date/Time Associated Diagnosis Comments LIPID PANEL Today 12/30/2019 10:30 AM GORE STITCHER Shortness of breath Hyperlipidemia, unspecified hyperlipidemia type from Last 3 Months or Most Recently Relevant to Health Maintenance Results * LIPID PANEL (12/30/2019 10:30 AM GORE STITCHER) [facility] CHOLESTEROL,TOTAL 152 100 - 199 mg/dL 12/30/2019 11:30 AM GORE STITCHER [facility] TRIGLYCERIDES 46 <150 mg/dL 12/30/2019 11:30 AM GORE STITCHER [facility] HDL CHOLESTEROL 67 >40 mg/dL 0 11:30 AM GORE STITCHER [facility] NON-HDL CHOLESTEROL 85 <145 mg/dl 12/30/2019 11:30 AM GORE STITCHER [facility] CHOL/HDL RATIO 2.27 <4.50 12/30/2019 11:30 AM GORE STITCHER [facility] LDL CHOLESTEROL 76 <=130 mg/dL 12/30/2019 11:30 AM GORE STITCHER [facility] PROVIDER ORDERED STATUS RANDOM 12/30/2019 11:30 AM [facility] Blood BLOOD SPECIMEN / Unknown Venipuncture / Unknown 12/30/2019 10:30 AM GORE STITCHER 12/30/2019 10:38 AM GORE STITCHER Alonso Ibaenz MD [facility] [address] [place] [address] from Last 3 Months or Most Recently Relevant to Health Maintenance Care Teams Sandfill Operator Surface Relationship Specialty Start Date End Date Waldemar Arzate MD PCP - General Family Practice 04/28/21
--- NOTE | 2024-05-26 21:02 | ED.GENADULT ---
HPI - General Adult General Date Seen: 05/26/24 Chief complaint: Unspecified Complaint, Adult Stated complaint: Foot pain; positive covid Time Seen by Provider: 05/26/24 20:25 Source: patient and family Mode of arrival: ambulatory Limitations: no limitations History of Present Illness HPI narrative: Patient is a 73-year-old here with her for evaluation of generalized weakness. Says she has been having trouble for the past day or 2, she has chronic back pain, chronic lower extremity radiculopathy, some nerve pain in her pinky toe, but says the past day or so she has not been able to get up from the couch at the toilet without assistance, she feels like her legs just will not support her. This is bilateral, no focal weakness. No complaints of bowel or bladder changes. She has had a fever she says, she has had some body aches and cough and 2 days ago did a COVID test at home which was positive. Her had also tested positive prior to that. They were recently in [place]. She has not had vomiting or diarrhea, she feels like she has been eating and drinking okay. She does feel somewhat short of breath, does not have chest pain. Does not smoke, has a listed diagnosis is COPD and asthma and has inhalers at home. She has been using her inhalers a little more than usual. Related Data Home Medications ?Medication ?Instructions ?Recorded ?Confirmed albuterol sulfate 90 mcg/actuation 2 puff inhalation QID PRN 07/06/22 05/27/24 aerosol inhaler (ProAir HFA) budesonide-formoterol HFA 160 2 puff inhalation BID 07/06/22 05/27/24 mcg-4.5 mcg/actuation aerosol inhaler (Symbicort) ipratropium 0.5 mg-albuterol 3 mg 3 ml inhalation QID PRN 07/06/22 05/27/24 (2.5 mg base)/3 mL nebulization soln montelukast 10 mg tablet 10 mg PO HS 07/06/22 05/27/24 (Singulair) calcium carbonate 600 mg PO BID 08/09/22 05/27/24 multivitamin (Multiple Vitamins 1 tab PO DAILY 08/09/22 05/27/24 tablet) CBD PO 04/19/24 04/19/24 CBD topical 04/19/24 04/19/24 THC PO 04/19/24 04/19/24 THC topical 04/19/24 04/19/24 pregabalin 150 mg capsule (Lyrica) 100 mg PO BID 04/19/24 05/27/24 Previous Rx's ?Medication ?Instructions ?Recorded rosuvastatin 5 mg tablet 5 mg PO QDAY #90 tabs 11/27/23 duloxetine 30 mg capsule,delayed 30 mg PO BID #180 caps 02/23/24 release hydrochlorothiazide 25 mg tablet See Rx Instructions .Route 05/14/24 .COMPLEX #90 tabs Allergies Allergy/AdvReac Type Severity Reaction Status Date / Time lisinopril Allergy Intermediate Cough Verified 04/19/24 08:14 Bee venom Allergy Intermediate hives and Uncoded 04/19/24 08:14 itching Review of Systems Status of ROS: Reports: 10 or more systems reviewed and unremarkable except as noted in History and below [facility] Medical History (Updated 05/27/24 @ 10:52 by Arianna Washburn MD) Fatigue ?R53.83 - Other fatigue (ICD-10) Diverticulosis of intestine ?K57.90 - Diverticulosis of intestine, part unspecified, without perforation or abscess without bleeding (ICD-10) Obesity (06/17/11) ?E66.9 - Obesity, unspecified (ICD-10) Osteoarthritis (06/25/09) ?M19.90 - Unspecified osteoarthritis, unspecified site (ICD-10) Premature atrial contraction ?I49.1 - Atrial premature depolarization (ICD-10) Symptoms consistent with irritable bowel syndrome (10/21/11) ?K58.9 - Irritable bowel syndrome without diarrhea (ICD-10) Radicular leg pain ?M54.10 - Radiculopathy, site unspecified (ICD-10) Scoliosis (06/25/09) ?M41.9 - Scoliosis, unspecified (ICD-10) Hearing loss ?H91.90 - Unspecified hearing loss, unspecified ear (ICD-10) Calculus of kidney (05/12/11) ?N20.0 - Calculus of kidney (ICD-10) Depression (06/25/09) ?F32.A - Depression, unspecified (ICD-10) Obstructive sleep apnea syndrome ?G47.33 - Obstructive sleep apnea (adult) (pediatric) (ICD-10) Low back pain ?M54.50 - Low back pain, unspecified (ICD-10) Right ankle pain ?M25.571 - Pain in right ankle and joints of right foot (ICD-10) Hypertension ?I10 - Essential (primary) hypertension (ICD-10) Hyperlipidemia ?E78.5 - Hyperlipidemia, unspecified (ICD-10) Chronic obstructive pulmonary disease ?J44.9 - Chronic obstructive pulmonary disease, unspecified (ICD-10) Asthma ?J45.909 - Unspecified asthma, uncomplicated (ICD-10) Pulmonary embolism ?I26.99 - Other pulmonary embolism without acute cor pulmonale (ICD-10) Surgical History History of varicose vein stripping ?Z98.890 - Other specified postprocedural states (ICD-10) Status post spinal surgery ?Z98.890 - Other specified postprocedural states (ICD-10) Status post cholecystectomy ?Z90.49 - Acquired absence of other specified parts of digestive tract (ICD-10) History of surgery on upper extremity (06/25/09) ?Z98.890 - Other specified postprocedural states (ICD-10) History of endometrial ablation (06/25/09) ?Z98.890 - Other specified postprocedural states (ICD-10) Social History (Updated 05/27/24 @ 00:09 by Brandon Yu MD) Narrative: She lives with her . is healthcare power of employment attorney. She does not smoke. She does not drink alcohol. She does use medical marijuana/both THC and CBD. What is your current living situation?: I presently have a place to live Problems where you live: no known problems Problems where you live details: N/A In the past 12 months, utilities in danger of being shut off: no In past 12 months, lack of transportation kept you from medical appts, meetings, work, or getting things needed for daily living: no In the past 12 mos, have been you worried that your food would run out before you had money to buy more?: never true In the past 12 mos, the food you bought just didn't last and you didn't have money to buy more?: never true Highest level of school completed/degree received: Bachelor's degree Smoking Status: Never smoker Do you use any of these nicotine containing products: None Second hand tobacco smoke exposure: No How often do you have a drink containing alcohol: never How often do you have six or more drinks on one occasion: Never AUDIT-C Alcohol total score: 0 Non-prescribed substance use: denies use Caffeine: Yes (2 coffees per day) How often does anyone, including family, friends and others, physically hurt you: never How often does anyone, including family, friends and others, insult or talk down to you: never How often does anyone, including family, friends and others, threaten you with harm: never How often does anyone, including family, friends and others, scream or curse at you: never Little interest or pleasure in doing things: not at all Feeling down, depressed, or hopeless: not at all service: No Exam Narrative: Exam Narrative: Vital signs as noted above. In general, an alert, nontoxic woman. She is on a couple L of oxygen, breathing comfortably. Head: Normocephalic, atraumatic. Eyes: Pupils are equal reactive. Extraocular movements are full. Conjunctivae are normal. ENT: Mucous membranes are moist. Throat is normal. Neck: Supple without lymphadenopathy. Heart: Regular rate and rhythm. No murmur or rub. Lungs: Clear bilaterally. No increased work of breathing, crackles or wheezes. Abdomen: Soft and nontender. No organomegaly. Extremities: Well perfused. No edema. No calf tenderness. Pulses intact. Neurologic: Patient is alert and oriented to person and place. Speech is fluent. Face is symmetric. Moves all extremities equally. Strength is 5 of 5 in bilateral lower extremities. Sensation intact to light touch appear Affect: Normal. Skin: Warm and dry. Well perfused. Const: Vital Signs, click to edit/add: Vital Signs - 24 hr 05/26/24 20:30 05/26/24 21:00 05/26/24 21:16 Temperature 98.5 F Pulse Rate 107 H 101 H Pulse Rate [Left P ulse Oximeter] 106 H Respiratory Rate 20 Blood Pressure 143/97 H Blood Pressure [Ri ght Upper Arm] 144/79 H Pulse Oximetry 96 97 96 Oxygen Delivery Me thod Room Air 05/26/24 21:20 05/26/24 21:21 05/26/24 21:45 Temperature Pulse Rate 101 H 101 H 100 Pulse Rate [Left P ulse Oximeter] Respiratory Rate Blood Pressure 153/93 H 149/103 H Blood Pressure [Ri ght Upper Arm] Pulse Oximetry 95 95 99 Oxygen Delivery Me thod 05/26/24 21:46 05/26/24 22:00 05/26/24 22:01 Temperature Pulse Rate 102 H 101 H 100 Pulse Rate [Left P ulse Oximeter] Respiratory Rate Blood Pressure 167/102 H Blood Pressure [Ri ght Upper Arm] Pulse Oximetry 100 97 97 Oxygen Delivery Me thod 05/26/24 22:20 05/26/24 22:22 Temperature Pulse Rate 103 H 105 H Pulse Rate [Left P ulse Oximeter] Respiratory Rate Blood Pressure 183/104 H Blood Pressure [Ri ght Upper Arm] Pulse Oximetry 98 98 Oxygen Delivery Me thod Documenting provider has reviewed patient's vital signs: yes Course Course ED Course: Will go ahead and get some labs, chest x-ray to look for pneumonia, evaluate for dehydration, metabolic derangement, cardiac involvement with CHF or acute coronary syndrome, relatively low suspicion for pulmonary embolism, but will do a D-dimer. Back pain and leg pain seem to be stable, neurologic exam is unremarkable. Weakness seems to be more likely related to COVID and deconditioning. Labs overall are fairly unremarkable. White count is normal at 7.7, little bit of a left shift with 75% neutrophils. Hemoglobin is normal. D-dimer was elevated at 1, blood gas showed a mild respiratory alkalosis with a pCO2 of 37 and a pH of 7.45. Metabolic panel fairly unremarkable. LFTs are normal, CRP elevated at 5.1 and BNP was essentially normal at 377. TSH normal. COVID positive. An EKG showed a mild tachycardia with a ventricular rate of 103. She does have some nonspecific ST changes in the lateral leads which I do not see on previous EKG. Point of care troponin however was 0.01. I elected to do a CT scan of the chest given the elevated D-dimer, COVID, recent travel and persistent mild tachycardia. She was up to the bathroom, was able to take a few steps to the bathroom but felt too weak to make it back from the bathroom. As a result, I think she would be best served by admission, neither she nor her feels that she will be able to manage as is right now. The CT scan by my review did not show evidence of pulmonary embolism, read as negative by Radiology. Accepted by hospitalist service. Vital Signs Vital signs: Initial Vital Signs Temperature 98.5 F 05/26/24 20:30 Temperature Source Temporal Artery Scan 05/26/24 20:30 Pulse Rate 106 H 05/26/24 20:30 Pulse Rhythm Regular 05/26/24 20:30 Respiratory Rate 20 05/26/24 20:30 Blood Pressure 144/79 H 05/26/24 20:30 Blood Pressure Mean 100 05/26/24 20:30 Blood Pressure Position Supine 05/26/24 20:30 Pulse Oximetry 96 05/26/24 20:30 Oxygen Delivery Method Room Air 05/26/24 20:30 Vital Signs Temperature 98.5 F 05/26/24 20:30 Pulse Rate 106 H 05/26/24 20:30 Respiratory Rate 20 05/26/24 20:30 Blood Pressure 144/79 H 05/26/24 20:30 Pulse Oximetry 96 05/26/24 20:30 Oxygen Delivery Method Room Air 05/26/24 20:30 Temperature 97.7 F 05/28/24 07:00 Pulse Rate 84 05/28/24 07:49 Respiratory Rate 20 05/28/24 07:00 Blood Pressure 123/66 05/28/24 07:00 Pulse Oximetry 95 05/28/24 07:00 Oxygen Delivery Method Room Air 05/28/24 07:00 Oxygen Flow Rate 0.5 05/27/24 07:00 Medications Administered Medications: Generic Name Dose Route Start Last Admin Trade Name Claudio PRN Reason Stop Dose Admin Acetaminophen 650 mg 05/26/24 23:14 05/27/24 22:05 Acetaminophen 325 Mg Tablet PO 650 mg Q4H PRN Administration Albuterol/Ipratropium 1 neb 05/26/24 23:18 05/27/24 17:58 Iprat-Albut 0.5-2.5 Mg/3 Ml Neb IH 1 neb QID PRN Administration Calcium Carbonate 500 mg 05/27/24 09:00 05/27/24 21:51 Calcium Carbonate 500 Mg Tablet PO 500 mg BID GONZALES Administration Duloxetine HCl 30 mg 05/27/24 00:45 05/28/24 09:10 [address] PO 30 mg BID GONZALES Administration Enoxaparin Sodium 40 mg 05/27/24 21:00 05/27/24 21:53 Enoxaparin 40 Mg/0.4 Ml Inj SUBCUT 40 mg HS GONZALES Administration Guaifenesin 1,200 mg 05/27/24 21:00 05/28/24 09:10 Guaifenesin 600 Mg Tab.Er.12h PO 1,200 mg BID GONZALES Administration Hydrochlorothiazide 25 mg 05/27/24 09:00 05/28/24 09:11 Hydrochlorothiazide 25 Mg Tablet PO 25 mg DAILY GONZALES Administration Montelukast Sodium 10 mg 05/27/24 18:00 05/27/24 17:54 Montelukast 10 Mg Tablet PO 10 mg QPM GONZALES Administration Multivitamins/Minerals 1 tab 05/26/24 23:30 05/28/24 09:11 Multivitamin/Minerals 1 Tablet PO 1 tab DAILY GONZALES Administration Non-Formulary Medication 2 puff 05/27/24 09:00 05/28/24 09:08 Budesonide-Formoterol [Symbicort] IH Not Given BID GONZALES Pregabalin 100 mg 05/27/24 00:45 05/28/24 09:16 Pregabalin 100 Mg Capsule PO 100 mg BID GONZALES Administration Rosuvastatin Calcium 5 mg 05/27/24 00:12 05/28/24 09:08 Rosuvastatin Calcium 10 Mg Tablet PO 5 mg DAILY GONZALES Administration Sodium Chloride 5 ml 05/27/24 09:00 05/27/24 21:53 Sodium Chloride 0.9 % (Flush) 10 Ml Syringe IVF 5 ml BID GONZALES Administration Discontinued Medications Generic Name Dose Route Start Last Admin Trade Name Claudio PRN Reason Stop Dose Admin Guaifenesin 600 mg 05/27/24 10:24 05/27/24 10:39 Guaifenesin 600 Mg Tab.Er.12h PO 05/27/24 10:25 600 mg ONCE ONE Administration Sodium Chloride 500 mls @ 500 mls/hr 05/26/24 20:47 05/26/24 22:41 0.9 % Sodium Chloride 500 Ml IV 05/26/24 21:46 Infused .Q1H ONE Infusion Prednisone 60 mg 05/26/24 22:36 05/26/24 22:46 Prednisone 20 Mg Tablet PO 05/26/24 22:37 60 mg ONCE ONE Administration Medical Decision Making Lab Data Labs: Lab Results 05/26/24 Range/Units 21:10 WBC 7.73 (4.50-11.00) K/uL RBC 4.30 (4.00-5.20) m/uL Hgb 12.8 (12.0-16.0) gm/dL Hct 38.9 (33.0-51.0) % MCV 91 (80-100) fL MCH 30 (26-34) pg MCHC 33 (32-36) gm/dL RDW Coeff of Nieves 14.9 (11.5-15.5) % Plt Count 149 (140-440) K/uL Neut % (Auto) 74.7 H (42.0-72.0) % Lymph % (Auto) 12.9 L (20-44) % [place] % (Auto) 12.0 H (0.0-11.0) % Eos % (Auto) 0.0 (0.0-7.0) % Baso % (Auto) 0.1 (0.0-3.0) % Neut # (Auto) 5.80 (1.7-7.0) K/uL Lymph # (Auto) 1.00 (0.90-2.90) K/uL [place] # (Auto) 0.90 (0.00-0.90) K/UL Eos # (Auto) 0.00 (0.00-0.50) K/uL Baso # (Auto) 0.01 (0.00-0.30) K/uL Abs Immat Gran (auto) 0.02 (0.00-0.30) K/uL Imm/Tot Granulo (auto) 0.3 % D-Dimer Quant (PE/DVT) 0.99 H (0.00-0.50) ug/ml VBG pH 7.458 H (7.32-7.43) VBG pCO2 37 L (40-50) mmHG VBG pO2 41.4 (25-47) mmHG VBG HCO3 27 (21-28) mmol/L Sodium 133 L (135-149) mmol/L Potassium 3.6 (3.6-5.1) mmol/L Chloride 100 (96-114) mmol/L Carbon Dioxide 28 (20-32) mmol/L Anion Gap 5 L (7-15) mEq/L BUN 11 (7-30) mg/dL Creatinine 0.5 (0.5-1.5) mg/dL Estimated Creat Clear 43.27 Estimated GFR 99 ml/min Glucose 136 H (60-115) mg/dL Lactate 1.1 (0.5-1.9) mmol/L Calcium 9.4 (8.4-10.6) mg/dL Total Bilirubin 0.4 (0.1-1.5) mg/dL Direct Bilirubin 0.2 (0.0-0.5) mg/dL AST 30 (12-35) U/L ALT 24 (4-35) U/L Alkaline Phosphatase 82 (40-150) U/L C-Reactive Protein 5.1 H (0.5-1.0) mg/dL NT-Pro-B Natriuret Pep 377 pg/mL Total Protein 7.2 (6.0-8.3) g/dL Albumin 4.1 (3.3-5.0) g/dL TSH 1.070 (0.270-4.200) uIU/mL SARS-CoV-2 (PCR) POSITIVE SARS-CoV-2 A (Negative) Influenza Type A (PCR) Negative PCR FLU A (Negative) Influenza Type B (PCR) Negative PCR FLU B (Negative) RSV (PCR) Negative PCR RSV (Negative) POC Troponin I 0.01 (0.01-0.04) ng/ml
[2024-05-26 21:23] LABS: Basophils Absolute Auto 0.01 K/uL (0.00-0.30); Basophils Percent Auto 0.1 % (0.0-3.0); Hematocrit 38.9 % (33.0-51.0); Hemoglobin* 12.8 gm/dL (12.0-16.0); Immature Granulocytes Abs Auto 0.02 K/uL (0.00-0.30); Immature Granulocytes Pct Auto 0.3 %; Lymphocytes Percent Auto 12.9 % (20-44); Mean Corpuscular HGB Conc 33 gm/dL (32-36); Mean Corpuscular Hemoglobin 30 pg (26-34); Mean Corpuscular Volume 91 fL (80-100); Neutrophils Percent Auto 74.7 % (42.0-72.0); Platelet Count* 149 K/uL (140-440); RDW Coefficient of Variation % 14.9 % (11.5-15.5); Slide Review Reflex No; White Blood Count* 7.73 K/uL (4.50-11.00)
[2024-05-26 21:33] LABS: HCO3 VBG 27 mmol/L (21-28); Lactate Sepsis w/Reflex* 1.1 mmol/L (0.5-1.9); PCO2 VBG 37 mmHG (40-50); PO2 VBG 41.4 mmHG (25-47); pH VBG 7.458 (7.32-7.43)
[2024-05-26 21:36] LABS: Troponin, Point-of-Care* 0.01 ng/ml (0.01-0.04)
[2024-05-26 21:40] LABS: Chloride* 100 mmol/L (96-114); Potassium* 3.6 mmol/L (3.6-5.1); Sodium* 133 mmol/L (135-149)
[2024-05-26] MEDS: 0.9 % SODIUM CHLORIDE 500 ML 500 ML IV (21:40)
[2024-05-26 21:41] LABS: Albumin* 4.1 g/dL (3.3-5.0)
[2024-05-26 21:43] LABS: Anion Gap 5 mEq/L (7-15); Blood Urea Nitrogen* 11 mg/dL (7-30); Carbon Dioxide* 28 mmol/L (20-32); Creatinine* 0.5 mg/dL (0.5-1.5); Est. Creatinine Clearance* 43.27; Estimated Glomerular Filt Rate 99 ml/min
[2024-05-26 21:44] LABS: Alkaline Phosphatase* 82 U/L (40-150); Aspartate Amino Transferase* 30 U/L (12-35); Bilirubin Direct* 0.2 mg/dL (0.0-0.5); Bilirubin Total* 0.4 mg/dL (0.1-1.5); Calcium* 9.4 mg/dL (8.4-10.6); D Dimer Quantitative* 0.99 ug/ml (0.00-0.50); Glucose* 136 mg/dL (60-115); Total Protein* 7.2 g/dL (6.0-8.3)
[2024-05-26 21:45] LABS: Alanine Aminotransferase* 24 U/L (4-35)
[2024-05-26 21:46] LABS: C Reactive Protein* 5.1 mg/dL (0.5-1.0)
[2024-05-26 21:54] LABS: NT Pro B Type NatriureticPept* 377 pg/mL
[2024-05-26 22:05] LABS: PCR FLU A Negative PCR FLU A (Negative); PCR FLU B Negative PCR FLU B (Negative); PCR RSV Negative PCR RSV (Negative); SARS PCR* POSITIVE SARS-CoV-2 (Negative)
--- NOTE | 2024-05-26 22:14 | CRLHL7_ITS ---
For Patients: As a result of the Century Cures Act, medical imaging exams and procedure reports are released immediately into your electronic medical record. You may view this report before your referring provider. If you have questions, please contact your health care provider. INDICATION: Shortness of breath, COVID-19, elevated D-dimer. TECHNIQUE: CT chest with i.v. contrast using pulmonary angiographic technique. Coronal and sagittal reformats were obtained. CONTRAST: 95 mL Isovue 370 COMPARISON: None FINDINGS: The sensitivity and specificity of the exam are severely limited by the patient`s body habitus and beam hardening artifact from the patient`s spinal hardware. Cardiovascular: The pulmonary arteries are unremarkable in enhancement with no evidence of acute pulmonary embolism. The heart has an unremarkable appearance and size. No sign of aneurysm in the thoracic aorta. Mediastinum: There is a fusiform 7 mm nodule in the right middle lobe abutting the minor fissure, likely an intrapulmonary lymph node. Lung: Moderate bibasilar discoid atelectasis is noted. Pleura and pericardium: No sign of pleural effusion seen. No significant pericardial effusion is present. Chest wall and axilla: No mass or adenopathy seen. Bone: Posterior spinal fusion of the mid thoracic spine to the lumbar is partially visualized. Moderate dextroscoliosis of the thoracic spine is seen. Upper abdomen: Unremarkable. IMPRESSION: 1. No CT evidence of acute pulmonary emboli seen. Dictated by Leoncio Schwab MD @ 05/27/2024 12:05:10 AM Please note that all CT scans at this facility use dose modulation, iterative reconstruction, and/or weight-based dosing when appropriate to reduce radiation dose to as low as reasonably achievable. Dictated by: Leoncio Schwab MD @ 05/27/2024 00:05:13 (Electronically Signed)
--- NOTE | 2024-05-26 22:35 | ED.NURSE ---
Pt ambulated to restroom on room air. Sats remained 96-97%. Heart rate increased from 102 to 120. Pt states she is walking better but feels fatigued. Pt requested to use a wheelchair from restroom back to room. believes patient is weaker tonight. informed.
[2024-05-26] MEDS: predniSONE 20 MG TABLET 60 MG PO (22:46)
--- NOTE | 2024-05-26 23:47 | ED.NURSE ---
Rn to Rn report given. pt going to room Room 276 via wheelchair on 2 LPM O2.
--- NOTE | 2024-05-26 23:56 | PM.IMHP1 ---
Hospitalist- H&P: HPI History of Present Illness Date Seen: 05/26/24 Chief complaint: Foot pain; positive covid Narrative: Asmita De La Cruz is a 73 year old female with asthma and chronic back pain presents with 2 day history of dyspnea, fever of 102 and profound leg weakness. Tested at home positive for COVID 2 days ago. Her tested positive at home 3 days ago. They returned from a trip to [place] 4 days ago. She has had previous COVID infections in 2019 and 2021. September 2020 she had spine surgery followed by a COVID infection followed by a small pulmonary embolism in a short period of time. She reports being quite dyspneic. No chest pain. She reports severe limitation of activity due to dyspnea. Not currently hypoxic. She reports that recently she has been able to walk up to a mile with a cane while she was visiting in [place]. She feels like her asthma has been at baseline. She tried a nebulizer treatment today and thought it helped a little bit. Review of Systems Narrative: Patient reports generally being at baseline functioning prior to the last 2-3 days of illness. She reports a decreased appetite but no nausea vomiting abdominal pain or diarrhea. No urinary symptoms. No swelling of her legs. [facility] Medical History (Updated 05/27/24 @ 00:15 by Brandon Yu MD) Fatigue ?R53.83 - Other fatigue (ICD-10) Diverticulosis of intestine ?K57.90 - Diverticulosis of intestine, part unspecified, without perforation or abscess without bleeding (ICD-10) Obesity (06/17/11) ?E66.9 - Obesity, unspecified (ICD-10) Osteoarthritis (06/25/09) ?M19.90 - Unspecified osteoarthritis, unspecified site (ICD-10) Premature atrial contraction ?I49.1 - Atrial premature depolarization (ICD-10) Symptoms consistent with irritable bowel syndrome (10/21/11) ?K58.9 - Irritable bowel syndrome without diarrhea (ICD-10) Radicular leg pain ?M54.10 - Radiculopathy, site unspecified (ICD-10) Scoliosis (06/25/09) ?M41.9 - Scoliosis, unspecified (ICD-10) Hearing loss ?H91.90 - Unspecified hearing loss, unspecified ear (ICD-10) Calculus of kidney (05/12/11) ?N20.0 - Calculus of kidney (ICD-10) Depression (06/25/09) ?F32.A - Depression, unspecified (ICD-10) Obstructive sleep apnea syndrome ?G47.33 - Obstructive sleep apnea (adult) (pediatric) (ICD-10) Low back pain ?M54.50 - Low back pain, unspecified (ICD-10) Right ankle pain ?M25.571 - Pain in right ankle and joints of right foot (ICD-10) Hypertension ?I10 - Essential (primary) hypertension (ICD-10) Hyperlipidemia ?E78.5 - Hyperlipidemia, unspecified (ICD-10) Chronic obstructive pulmonary disease ?J44.9 - Chronic obstructive pulmonary disease, unspecified (ICD-10) Asthma ?J45.909 - Unspecified asthma, uncomplicated (ICD-10) Pulmonary embolism ?I26.99 - Other pulmonary embolism without acute cor pulmonale (ICD-10) Surgical History History of varicose vein stripping ?Z98.890 - Other specified postprocedural states (ICD-10) Status post spinal surgery ?Z98.890 - Other specified postprocedural states (ICD-10) Status post cholecystectomy ?Z90.49 - Acquired absence of other specified parts of digestive tract (ICD-10) History of surgery on upper extremity (06/25/09) ?Z98.890 - Other specified postprocedural states (ICD-10) History of endometrial ablation (06/25/09) ?Z98.890 - Other specified postprocedural states (ICD-10) Social History (Updated 05/27/24 @ 00:09 by Brandon Yu MD) Narrative: She lives with her . 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 She does not smoke. She does not drink alcohol. She does use medical marijuana/both THC and CBD. What is your current living situation?: I presently have a place to live Problems where you live: no known problems In the past 12 months, utilities in danger of being shut off: no In past 12 months, lack of transportation kept you from medical appts, meetings, work, or getting things needed for daily living: no In the past 12 mos, have been you worried that your food would run out before you had money to buy more?: never true In the past 12 mos, the food you bought just didn't last and you didn't have money to buy more?: never true Smoking Status: Never smoker Do you use any of these nicotine containing products: None Second hand tobacco smoke exposure: No How often do you have a drink containing alcohol: never AUDIT-C Alcohol total score: 0 Non-prescribed substance use: denies use How often does anyone, including family, friends and others, physically hurt you: never How often does anyone, including family, friends and others, insult or talk down to you: never How often does anyone, including family, friends and others, threaten you with harm: never How often does anyone, including family, friends and others, scream or curse at you: never Little interest or pleasure in doing things: not at all Feeling down, depressed, or hopeless: not at all Meds Home Medications and Allergies Home Medications ?Medication ?Instructions ?Recorded ?Confirmed ?Type albuterol sulfate 90 mcg/actuation 2 puff inhalation QID PRN 07/06/22 04/19/24 History aerosol inhaler (ProAir HFA) budesonide-formoterol HFA 160 2 puff inhalation BID 07/06/22 04/19/24 History mcg-4.5 mcg/actuation aerosol inhaler (Symbicort) ipratropium 0.5 mg-albuterol 3 mg 3 ml inhalation QID PRN 07/06/22 04/19/24 History (2.5 mg base)/3 mL nebulization soln montelukast 10 mg tablet 10 mg PO QPM 07/06/22 04/19/24 History (Singulair) calcium carbonate 600 mg PO BID 08/09/22 04/19/24 History multivitamin (Multiple Vitamins 1 tab PO QDAY 08/09/22 04/19/24 History tablet) CBD PO 04/19/24 04/19/24 History CBD topical 04/19/24 04/19/24 History THC PO 04/19/24 04/19/24 History THC topical 04/19/24 04/19/24 History pregabalin 150 mg capsule (Lyrica) 100 mg PO BID 04/19/24 History Allergies Allergy/AdvReac Type Severity Reaction Status Date / Time lisinopril Allergy Intermediate Cough Verified 04/19/24 08:14 Bee venom Allergy Intermediate hives and Uncoded 04/19/24 08:14 itching Exam Narrative: Exam Narrative: She is alert and appears in no distress. Somewhat hard of hearing. Eyes normal. Speech is fluent. She appears mildly dyspneic in conversation. She is oriented to her circumstances. Respirations are clear to auscultation without wheezing rales or rhonchi. Cardiovascular: S1, S2, regular rate and rhythm. Abdomen: Bowel sounds active. Abdomen is soft without tenderness or mass. Extremities with trace edema bilaterally. No rash. Good peripheral perfusion. Const: Vital Signs, click to edit/add: Vital Signs - 24 hr 05/26/24 20:30 05/26/24 21:00 05/26/24 21:16 Temperature 98.5 F Pulse Rate 107 H 101 H Pulse Rate [Left P ulse Oximeter] 106 H Respiratory Rate 20 Blood Pressure 143/97 H Blood Pressure [Ri ght Upper Arm] 144/79 H Pulse Oximetry 96 97 96 Oxygen Delivery Me thod Room Air 05/26/24 21:20 05/26/24 21:21 05/26/24 21:45 Temperature Pulse Rate 101 H 101 H 100 Pulse Rate [Left P ulse Oximeter] Respiratory Rate Blood Pressure 153/93 H 149/103 H Blood Pressure [Ri ght Upper Arm] Pulse Oximetry 95 95 99 Oxygen Delivery Me thod 05/26/24 21:46 05/26/24 22:00 05/26/24 22:01 Temperature Pulse Rate 102 H 101 H 100 Pulse Rate [Left P ulse Oximeter] Respiratory Rate Blood Pressure 167/102 H Blood Pressure [Ri ght Upper Arm] Pulse Oximetry 100 97 97 Oxygen Delivery Me thod 05/26/24 22:20 05/26/24 22:22 Temperature Pulse Rate 103 H 105 H Pulse Rate [Left P ulse Oximeter] Respiratory Rate Blood Pressure 183/104 H Blood Pressure [Ri ght Upper Arm] Pulse Oximetry 98 98 Oxygen Delivery Me thod Documenting provider has reviewed patient's vital signs: yes Hospitalist - H&P: Result Labs Labs: Short CBC 05/26/24 Range/Units 21:10 WBC 7.73 (4.50-11.00) K/uL Hgb 12.8 (12.0-16.0) gm/dL Hct 38.9 (33.0-51.0) % Plt Count 149 (140-440) K/uL BMP 05/26/24 21:10 Sodium 133 L Potassium 3.6 Chloride 100 Carbon Dioxide 28 BUN 11 Creatinine 0.5 Glucose 136 H Calcium 9.4 Liver Function 05/26/24 Range/Units 21:10 Total Bilirubin 0.4 (0.1-1.5) mg/dL Direct Bilirubin 0.2 (0.0-0.5) mg/dL AST 30 (12-35) U/L ALT 24 (4-35) U/L Alkaline Phosphatase 82 (40-150) U/L Albumin 4.1 (3.3-5.0) g/dL ECG Attestation: I personally reviewed and interpreted this ECG as follows: (Sinus tachycardia with a rate of 103. She has relatively diffuse ST and T wave abnormalities in inferior limb leads and across the precordium. These are new compared to an electrocardiogram from 01/11/2023) ECG interpretation date: 05/26/[address] scan - chest: Radiologist's impression: Study:?CT-Chest Angio with 95cc [id number] PE PROTOCOL-05/26/2024 11:24:07 PM Ordering Physician:Elaine Fernandez Final Report: INDICATION: Shortness of breath, COVID-19, elevated D-dimer. TECHNIQUE: CT chest with i.v. contrast using pulmonary angiographic technique. Coronal and sagittal reformats were obtained. CONTRAST: 95 mL Isovue 370 COMPARISON: None FINDINGS: The sensitivity and specificity of the exam are severely limited by the patient`s body habitus and beam hardening artifact from the patient`s spinal hardware. Cardiovascular: The pulmonary arteries are unremarkable in enhancement with no evidence of acute pulmonary embolism. The heart has an unremarkable appearance and size. No sign of aneurysm in the thoracic aorta. Mediastinum: There is a fusiform 7 mm nodule in the right middle lobe abutting the minor fissure, likely an intrapulmonary lymph node. Lung: Moderate bibasilar discoid atelectasis is noted. Pleura and pericardium: No sign of pleural effusion seen. No significant pericardial effusion is present. Chest wall and axilla: No mass or adenopathy seen. Bone: Posterior spinal fusion of the mid thoracic spine to the lumbar is partially visualized. Moderate dextroscoliosis of the thoracic spine is seen. Upper abdomen: Unremarkable. IMPRESSION: 1. No CT evidence of acute pulmonary emboli seen. Assessment and Plan Assessment and plan (1) COVID-19: Problem comment: This is likely the cause of her fever, generalized weakness, dyspnea. Initiate dexamethasone if hypoxic. Supportive cares. Status: Acute (2) Abnormal electrocardiogram: Problem comment: ST-T changes which are new in the last year and a half with dyspnea but without chest pain. Currently with COVID infection. Troponin 0.01. Monitor and trend. Status: Acute (3) Asthma: Status: Acute (4) Obstructive sleep apnea syndrome: Problem comment: Home CPAP Status: Acute Plan Patient is admitted the hospital for evaluation and treatment of COVID and complications of COVID infection. Total Time Spent Total Time Spent: Total time spent is 80 minutes in evaluation and management on the day of admission
[2024-05-27] VITALS (10 sets, daily range): BP systolic 118–157; BP diastolic 59–94; PULSE 62–105; RESP 18–22; TEMP 36.2–37.3; O2SAT 93–99; BMI 34.1
[2024-05-27] MEDS: ROSUVASTATIN CALCIUM 10 MG TABLET 5 MG PO (00:39)
[2024-05-27] MEDS: MULTIVITAMIN/MINERALS 1 TABLET 1 TAB PO ×2 (00:39→08:16)
[2024-05-27] MEDS: ACETAMINOPHEN 325 MG TABLET 650 MG PO ×2 (00:40→22:05)
[2024-05-27] MEDS: PREGABALIN 100 MG CAPSULE PO ×3 (01:23→21:53)
[2024-05-27] MEDS: DULOXETINE 30 MG CAPSULE DR PO ×3 (01:24→21:50)
[2024-05-27 06:56] LABS: Troponin I* < 0.01 ng/mL (0.01-0.04)
--- NOTE | 2024-05-27 07:00 | PC.NURSE ---
End of shift note: Pt noted to be alert & oriented x 4. She is hard of hearing at baseline and wears bilateral hearing aids though Twin took these home last night shortly after admission to Med/Surg unit. PRN Tylenol and scheduled medications administered for chronic back pain. Pt noted to have slight redness observed to top of R foot. Pt reports not wearing socks with her shoes at home and this has likely caused irritation to this are. Oxygen 1-2 LPM administered via NC throughout the shift. Pt on tele with NSR noted though she was noted to be tachycardic with pulse of 105 upon admission to unit. Pt transferring/ambulating with assist of 1 using FWW. She has been continent of bladder. Pt does have shortness of breath upon exertion and does have dry nonproductive cough at times. Pt has been afebrile since admission to med/surg. IV to R AUBREE CARR.
[2024-05-27] MEDS: SODIUM CHLORIDE 0.9 % (FLUSH) 10 ML SYRINGE 5 ML IVF ×2 (08:17→21:53)
[2024-05-27] MEDS: hydroCHLOROthiazide 25 MG TABLET PO (08:17)
[2024-05-27] MEDS: CALCIUM CARBONATE 500 MG TABLET PO ×2 (09:47→21:51)
--- NOTE | 2024-05-27 10:23 | P.IMPN_ITS ---
Progress Note: A&P Assessment and plan (1) COVID-19: Problem details: - likely the cause of her fever, generalized weakness, dyspnea - continue supportive cares, improving on hospital day 1 - no need for steroids at this time (required low dose supplemental O2 overnight, no oxygen requirements during the day) Status: Acute (2) Abnormal electrocardiogram: Problem details: - admission EKG reveals ST-T changes which are new in the last 18 months, in addition to dyspnea, no CP, possibly all related to COVID - troponin remains negative, repeat EKG on 05/27 unchanged, patient remains CP free Status: Acute (3) Asthma: Problem details: - stable without evidence of exacerbation at this time Status: Acute (4) Obstructive sleep apnea syndrome: Problem details: - continue home CPAP Status: Acute Plan - therapies, RT evaluation - likely home tomorrow if stable on RA and able to ambulate without assistance - updated at bedside, questions answered Subjective Date Seen: 05/27/24 Interval history: Asmita was admitted last night for fever, weakness and cough in the setting of + COVID infection. She was found to have an elevated D-dimer with negative chest CTA, and mild ST changes on EKG with a negative troponin and no chest pain. This morning, she endorses feeling better overall. Required supplemental oxygen for a short time overnight, not objectively hypoxic this morning. Still having some head congestion and cough. No wheezing, no chest pain. Dyspnea has improved. Ambulating from bed to bathroom. Exam Narrative: Exam Narrative: GEN: Alert and sitting comfortably in bed, speaking in full sentences HEENT: EOMIs bilaterally, no scleral icterus CV: RRR, soft systolic murmur without concerning features or radiation R: LCTA bilaterally without concerning wheezing or rales. Intermittent cough Back: normal contours, + scar from previous surgeries Ext: wwp, no concerning edema Skin: No concerning skin lesions or rashes on exposed skin Neuro: No focal deficits, no resting tremor, gait appropriate Psych: Appropriate Const: Vital Signs, click to edit/add: Vital Signs - 24 hr 05/26/24 20:30 05/26/24 21:00 05/26/24 21:16 Temperature 98.5 F Pulse Rate 107 H 101 H Pulse Rate [Left P ulse Oximeter] 106 H Respiratory Rate 20 Blood Pressure 143/97 H Blood Pressure [Le ft Arm] Blood Pressure [Ri ght Upper Arm] 144/79 H Pulse Oximetry 96 97 96 Oxygen Delivery Me thod Room Air Oxygen Flow Rate 05/26/24 21:20 05/26/24 21:21 05/26/24 21:45 Temperature Pulse Rate 101 H 101 H 100 Pulse Rate [Left P ulse Oximeter] Respiratory Rate Blood Pressure 153/93 H 149/103 H Blood Pressure [Le ft Arm] Blood Pressure [Ri ght Upper Arm] Pulse Oximetry 95 95 99 Oxygen Delivery Me thod Oxygen Flow Rate 05/26/24 21:46 05/26/24 22:00 05/26/24 22:01 Temperature Pulse Rate 102 H 101 H 100 Pulse Rate [Left P ulse Oximeter] Respiratory Rate Blood Pressure 167/102 H Blood Pressure [Le ft Arm] Blood Pressure [Ri ght Upper Arm] Pulse Oximetry 100 97 97 Oxygen Delivery Me thod Oxygen Flow Rate 05/26/24 22:20 05/26/24 22:22 05/27/24 00:05 Temperature 99.2 F Pulse Rate 103 H 105 H Pulse Rate [Left P ulse Oximeter] 105 H Respiratory Rate 20 Blood Pressure 183/104 H Blood Pressure [Le ft Arm] 152/80 H Blood Pressure [Ri ght Upper Arm] Pulse Oximetry 98 98 99 Oxygen Delivery Me thod Nasal Cannula Oxygen Flow Rate 2 05/27/24 00:50 05/27/24 01:40 05/27/24 03:00 Temperature 97.1 F L Pulse Rate 95 Pulse Rate [Left P ulse Oximeter] 65 Respiratory Rate 20 20 Blood Pressure Blood Pressure [Le ft Arm] 157/94 H Blood Pressure [Ri ght Upper Arm] Pulse Oximetry 99 96 Oxygen Delivery Me thod Nasal Cannula Nasal Cannula Oxygen Flow Rate 2 1 05/27/24 07:00 05/27/24 07:00 05/27/24 07:00 Temperature Pulse Rate 82 Pulse Rate [Left P ulse Oximeter] 97 Respiratory Rate 20 20 Blood Pressure Blood Pressure [Le ft Arm] Blood Pressure [Ri ght Upper Arm] Pulse Oximetry 95 Oxygen Delivery Me thod Nasal Cannula Oxygen Flow Rate 1 05/27/24 07:00 Temperature 98.1 F Pulse Rate Pulse Rate [Left P ulse Oximeter] 97 Respiratory Rate 20 Blood Pressure Blood Pressure [Le ft Arm] 131/77 Blood Pressure [Ri ght Upper Arm] Pulse Oximetry 95 Oxygen Delivery Me thod Nasal Cannula Oxygen Flow Rate 0.5 Labs Labs: Laboratory Results - last 24 hr 05/26/24 05/27/24 21:10 06:10 WBC 7.73 RBC 4.30 Hgb 12.8 Hct 38.9 MCV 91 MCH 30 MCHC 33 RDW Coeff of Nieves 14.9 Plt Count 149 Neut % (Auto) 74.7 H Lymph % (Auto) 12.9 L [place] % (Auto) 12.0 H Eos % (Auto) 0.0 Baso % (Auto) 0.1 Neut # (Auto) 5.80 Lymph # (Auto) 1.00 [place] # (Auto) 0.90 Eos # (Auto) 0.00 Baso # (Auto) 0.01 Abs Immat Gran (auto) 0.02 Imm/Tot Granulo (auto) 0.3 D-Dimer Quant (PE/DVT) 0.99 H VBG pH 7.458 H VBG pCO2 37 L VBG pO2 41.4 VBG HCO3 27 Sodium 133 L Potassium 3.6 Chloride 100 Carbon Dioxide 28 Anion Gap 5 L BUN 11 Creatinine 0.5 Estimated Creat Clear 43.27 Estimated GFR 99 Glucose 136 H Lactate 1.1 Calcium 9.4 Total Bilirubin 0.4 Direct Bilirubin 0.2 AST 30 ALT 24 Alkaline Phosphatase 82 Troponin I < 0.01 L C-Reactive Protein 5.1 H NT-Pro-B Natriuret Pep 377 Total Protein 7.2 Albumin 4.1 TSH 1.070 SARS-CoV-2 (PCR) POSITIVE SARS-CoV-2 A Influenza Type A (PCR) Negative PCR FLU A Influenza Type B (PCR) Negative PCR FLU B RSV (PCR) Negative PCR RSV POC Troponin I 0.01
[2024-05-27] MEDS: guaiFENesin 600 MG TAB.ER.12H PO (10:39)
--- NOTE | 2024-05-27 13:55 | PC.NURSE ---
End of shift [id number]: Pt is A&O, VSS and afebrile. She is SBA with 2ww for ambulation and transfers. Continent of B&B, no BM today. Pt denies having any acute pain, dizziness or nausea. Reports weakness with activity but states it?s improved since yesterday. Dyspnea is also improving. O2 sats > 92% on RA but we?ve been utilizing O2 intermittently for relief of symptoms & comfort. PIV in right hand is SL and C/D/I. TELE shows SR with 1st degree block & BBB. Mucinex BID & Singulair q PM initiated for relief of congestion symptoms. was here for a short time today & was attentive to patient?s needs. ?
[2024-05-27] MEDS: MONTELUKAST 10 MG TABLET PO (17:54)
[2024-05-27] MEDS: IPRAT-ALBUT 0.5-2.5 MG/3 ML NEB 1 NEB IH (17:58)
[2024-05-27] MEDS: guaiFENesin 600 MG TAB.ER.12H 1200 MG PO (21:50)
[2024-05-27] MEDS: ENOXAPARIN 40 MG/0.4 ML INJ SUBCUT (21:53)
[2024-05-28 01:40] VITALS: PULSE 69
[2024-05-28 02:49] VITALS: BP 129/73; PULSE 81; RESP 18; TEMP 36.3; O2SAT 93
[2024-05-28 06:50] LABS: Basophils Percent Auto 0.7 % (0.0-3.0); Eosinophils Percent Auto 1.8 % (0.0-7.0); Hematocrit 38.8 % (33.0-51.0); Hemoglobin* 12.6 gm/dL (12.0-16.0); Lymphocytes Percent Auto 40.7 % (20-44); Mean Corpuscular HGB Conc 33 gm/dL (32-36); Mean Corpuscular Hemoglobin 30 pg (26-34); Mean Corpuscular Volume 91 fL (80-100); Monocytes Percent Auto 16.1 % (0.0-11.0); Neutrophils Percent Auto 40.7 % (42.0-72.0); Platelet Count* 147 K/uL (140-440); RDW Coefficient of Variation % 14.8 % (11.5-15.5); Red Blood Count 4.26 m/uL (4.00-5.20)
[2024-05-28 06:53] LABS: Slide Review Reflex No
[2024-05-28 07:00] VITALS: BP 123/66; PULSE 72; RESP 20; TEMP 36.5; O2SAT 95
[2024-05-28 07:01] LABS: Chloride* 103 mmol/L (96-114); Potassium* 3.1 mmol/L (3.6-5.1); Sodium* 138 mmol/L (135-149)
[2024-05-28 07:04] LABS: Anion Gap 6 mEq/L (7-15); Blood Urea Nitrogen* 15 mg/dL (7-30); Carbon Dioxide* 29 mmol/L (20-32); Creatinine* 0.5 mg/dL (0.5-1.5); Est. Creatinine Clearance* 43.27; Estimated Glomerular Filt Rate 99 ml/min; Glucose* 93 mg/dL (60-115)
[2024-05-28 07:05] LABS: Magnesium* 2.3 mg/dL (1.5-2.6)
[2024-05-28 07:21] LABS: Troponin I* < 0.01 ng/mL (0.01-0.04)
--- NOTE | 2024-05-28 07:42 | PC.NURSE ---
Patient pleasant, alert and oriented. Ambulated with assist of one and two wheeled walker. here this evening visiting. Denied any discomfort or SOB. Expiratory wheezes heard. Reported PRN neb effective. ?
[2024-05-28 07:49] VITALS: PULSE 84
[2024-05-28] MEDS: ROSUVASTATIN CALCIUM 10 MG TABLET 5 MG PO (09:08)
[2024-05-28] MEDS: DULOXETINE 30 MG CAPSULE DR PO (09:10)
[2024-05-28] MEDS: guaiFENesin 600 MG TAB.ER.12H 1200 MG PO (09:10)
[2024-05-28] MEDS: MULTIVITAMIN/MINERALS 1 TABLET 1 TAB PO (09:11)
[2024-05-28] MEDS: hydroCHLOROthiazide 25 MG TABLET PO (09:11)
[2024-05-28] MEDS: PREGABALIN 100 MG CAPSULE PO (09:16)
--- NOTE | 2024-05-28 10:22 | P.DS_ITS ---
DS: Providers Provider Date Seen: 05/28/24 Date of admission: 05/26/24 23:48 Primary care physician: MD Huey Admitting Clinician: Brandon Yu MD Attending Physician on discharge: Arianna Washburn MD Date of Discharge: 05/28/24 DS: Diagnosis Discharge Diagnosis (1) Abnormal electrocardiogram: Status: Acute Problem details: - admission EKG reveals ST-T changes which are new in the last 18 months, in addition to dyspnea, no CP, possibly all related to COVID - troponin remains negative, repeat EKG on 05/27 unchanged, patient remains CP free (2) COVID-19: Status: Acute Problem details: - likely the cause of her fever, generalized weakness, dyspnea - continue supportive cares, improving on hospital day 1 - no need for steroids at this time (required low dose supplemental O2 overnight, no oxygen requirements during the day) (3) Asthma: Status: Acute Problem details: - stable during stay; was noted to have mild expiratory wheezing on day of dis charge without hypoxia; will go home on 5 day Prednisone burst DS: Summary Hospital Course Hospital Course: Maggie is a 73-year-old female who presented to the hospital with weakness and cough in the setting of COVID infection. She require low-dose supplemental oxygen overnight during her 1st evening; stable on room air after that. She received 1 dose of steroid in the emergency room and did not require any other COVID specific therapies during stay. Upon admission, noted to have ST changes on electrocardiogram. These remained stable, she had no chest pain, troponin negative x3. This is to be followed up as an outpatient. Seen by therapies with no discharge needs identified; weakness resolved on hospital day 1. On day of discharge, she remained stable on room air but was noted to having new mild expiratory wheeze; given history of asthma, she is discharged on a 5 day burst of prednisone with close PCP follow-up. Status at Discharge Functional status at discharge: independent ambulation Overall status at discharge: patient is progressing back to baseline Time Spent with Patient Time attestation: Total time spent providing and/or coordinating discharge services: Time spent: Greater than 30 minutes Specific discharge activities: Medication reconciliation, collaboration with multidisciplinary team, discharge planning Exam Narrative: Exam Narrative: GEN: Alert and oriented, sitting in bedside chair in speaking in full sentences. No dyspnea noted HEENT: EOMIs bilaterally, no scleral icterus CV: RRR, No concerning murmurs R: LCTA bilaterally, mild expiratory wheezing noted throughout, air movement adequate. Ext: Trace lower extremity edema without any other concerning findings Skin: No concerning skin lesions or rashes on exposed skin Neuro: Nonfocal Psych: Appropriate Const: Vital Signs, click to edit/add: Vital Signs - 24 hr 05/27/24 11:00 05/27/24 15:00 05/27/24 15:00 Temperature 97.3 F L Pulse Rate Pulse Rate [Left P ulse Oximeter] 80 84 Respiratory Rate 22 20 20 Blood Pressure [Le ft Arm] 130/71 Pulse Oximetry 93 97 [facility] 05/27/24 15:00 05/27/24 15:33 05/27/24 19:00 Temperature 97.5 F L 98.2 F Pulse Rate 84 Pulse Rate [Left P ulse Oximeter] 84 92 Respiratory Rate 20 18 Blood Pressure [Le ft Arm] 118/59 L 119/68 Pulse Oximetry 97 93 Oxygen Delivery [facility] Room Air Room Air 05/27/24 22:11 05/27/24 22:11 05/28/24 01:40 Temperature 98.4 F Pulse Rate 69 Pulse Rate [Left P ulse Oximeter] 62 Respiratory Rate 18 18 Blood Pressure [Le ft Arm] 124/71 Pulse Oximetry 93 93 Oxygen Delivery [facility] Room Air Room Air 05/28/24 02:49 05/28/24 07:00 05/28/24 07:00 Temperature 97.4 F L 97.7 F Pulse Rate Pulse Rate [Left P ulse Oximeter] 81 72 72 Respiratory Rate 18 20 20 Blood Pressure [Le ft Arm] 129/73 123/66 Pulse Oximetry 93 95 Oxygen Delivery [facility] Room Air Room Air 05/28/24 07:00 05/28/24 07:49 Temperature Pulse Rate 84 Pulse Rate [Left P ulse Oximeter] Respiratory Rate 20 Blood Pressure [Le ft Arm] Pulse Oximetry 95 [facility] DS: Data Data Completed and Pending Labs on day of discharge: Labs from last 24 hours 05/28/24 06:07 WBC 4.40 L RBC 4.26 Hgb 12.6 Hct 38.8 MCV 91 MCH 30 MCHC 33 RDW Coeff of Nieves 14.8 Plt Count 147 Neut % (Auto) 40.7 L Lymph % (Auto) 40.7 Centre % (Auto) 16.1 H Eos % (Auto) 1.8 Baso % (Auto) 0.7 Neut # (Auto) 1.80 Lymph # (Auto) 1.80 Centre # (Auto) 0.70 Eos # (Auto) 0.10 Baso # (Auto) 0.00 Abs Immat Gran (auto) 0.00 Imm/Tot Granulo (auto) 0.0 Sodium 138 Potassium 3.1 L Chloride 103 Carbon Dioxide 29 Anion Gap 6 L BUN 15 Creatinine 0.5 Estimated Creat Clear 43.27 Estimated GFR 99 Glucose 93 Calcium 9.0 Magnesium 2.3 Troponin I < 0.01 L Discharge Plan Discharge Disposition: Home, Self-Care Date of Admission: 05/26/24 23:48 Attending Provider on Discharge: Arianna Washburn Primary Care Provider: Rebecca Glez Condition: Improved Anticipated Discharge Date/Time: 05/28/24 10:17 Discharge Medications: New prednisone 20 mg tablet 20 mg PO DAILY 5 Days Qty: 5 0RF Continued multivitamin [Multiple Vitamins] Tablet 1 tab PO DAILY calcium carbonate 600 mg calcium (1,500 mg) tablet 600 mg PO BID pregabalin [Lyrica] 150 mg capsule 100 mg PO BID THC 187.6 mg topical CBD 187.5 mg topical THC PO CBD PO budesonide-formoterol [Symbicort] 160-4.5 mcg/actuation HFA aerosol inhaler 2 puff inhalation BID ipratropium-albuterol 0.5 mg-3 mg(2.5 mg base)/3 mL solution for nebulization 3 ml inhalation QID PRN montelukast [Singulair] 10 mg tablet 10 mg PO HS albuterol sulfate [ProAir HFA] 90 mcg/actuation HFA aerosol inhaler 2 puff inhalation QID PRN rosuvastatin 5 mg tablet 5 mg PO QDAY Qty: 90 3RF duloxetine 30 mg capsule,delayed release(DR/EC) 30 mg PO BID Qty: 180 3RF hydrochlorothiazide 25 mg tablet See Rx Instructions .ROUTE .COMPLEX Qty: 90 3RF Dose Instruction: TAKE ONE TABLET BY MOUTH ONCE DAILY Rx Instructions: TAKE ONE TABLET BY MOUTH ONCE DAILY Discharge Orders: Discharge Order (Routine); Ordered 05/28/24 Ordered By: Arianna Washburn Additional Instructions: 5 days of Prednisone sent to [facility] - take once/day with food for your wheezing. Continue as needed Mucinex for head congestion and cough. See Dr. Arzate as scheduled, and check in with your Operations Forester after you get home. Activity Level: Activity as Tolerated Discharge Diet: Regular Follow Up Appointments: Waldemar Arzate MD [Staff Physician] - (7-10 days for hospital discharge f/u) Rebecca Glez MD [Primary Care Provider] - Forms: My1login Info Instructions
[2024-05-28] MEDS: POTASSIUM BICARB 25 MEQ EFFERVESCENT TAB 50 MEQ PO (11:19)
--- NOTE | 2024-05-28 11:51 | PC.NURSE ---
Discharge: Patient VSS. Alert and oriented. Tolerated a regular diet. SBA with walker. Patient discharged at 1140 via ambulatory, accompanied by spouse. Discharge education given to patient and spouse. Patient and RN both signed disharge packet.
== END 2024-05-28 11:40 | disposition home or self-care (01) ==
LOC: ED 20:53 → MEDSURG 23:48
PROVIDERS: Family Medicine; Admitting Provider Family Medicine; Emergency Provider Emergency Medicine; PCP Family Medicine; Visit Provider Family Medicine
DX: U07.1 COVID-19 (principal); R53.1 Weakness; R94.31 Abnormal electrocardiogram [ECG] [EKG]; R79.89 Other specified abnormal findings of blood chemistry; R00.0 Tachycardia, unspecified; R05.9 Cough, unspecified; R06.00 Dyspnea, unspecified; J45.909 Unspecified asthma, uncomplicated; J44.9 Chronic obstructive pulmonary disease, unspecified; G47.33 Obstructive sleep apnea (adult) (pediatric); M54.9 Dorsalgia, unspecified; G89.29 Other chronic pain; M54.10 Radiculopathy, site unspecified; M25.571 Pain in right ankle and joints of right foot; I10 Essential (primary) hypertension; E78.5 Hyperlipidemia, unspecified; F32.A Depression, unspecified; I49.1 Atrial premature depolarization; H91.90 Unspecified hearing loss, unspecified ear; Z90.49 Acquired absence of other specified parts of digestive tract; Z98.890 Other specified postprocedural states; F12.90 Cannabis use, unspecified, uncomplicated
CPT/HCPCS: 36415; 71045; 71275; 80048; 80076; 82803; 83605; 83735; 83880; 84443; 84484; 85025; 85379; 86140; 87631; 93005; 94640; 96360; 96372; 97116; 97161; 97165; 99284; 99285; G0378; A9153; A9270; J1650; J7030; J7512; Q9967

== ENCOUNTER 2024-07-08 13:44 | Outpatient (CLI) | payer MEDICARE, SELFPAY ==
--- OUTSIDE RECORDS SUMMARY | 2024-07-08 13:47 | XMS_ITS | Encounter Summary ---
Author Organization [facility] Address [address] [place] [address]. [place] [address] Care Team Providers Care Fiber Picker Name Role Phone Craig Shaikh MD Unavailable [phone] Sarah Woods MD Unavailable [phone] Aaron Arzate MD Primary Care Provider [phone] Fracisco See MD Unavailable [phone] Caitie Sheth MD Unavailable Vishal Roy MD Unavailable [phone] Craig Ku MD Unavailable [phone] Encounter Details Date Type Department Care Team (Late st Contact Info) Description 02/09/2024 [facility] Medical Advice [facility] [address] [place] [address] Sarah Woods MD [address] [place] [address] 276 [place] [address] Social History Tobacco Use Types [...] file Gender Identity Female 10/12/2020 11:38 AM JOINT CREASER Sexual Orientation Not on file documented as of this encounter Plan of Treatment Upcoming Encounters Date Type Department Care Team (Late st Contact Info) Description 01/07/2025 1:30 PM JOINT CREASER Office Visit [facility] [address] [phone] Sarah Woods MD [address] [address]24[address] documented as of this encounter Visit Diagnoses Not on filedocumented in this encounter Care Teams Fiber Picker Relationship Specialty Start Date End Date Craig Shaikh MD [address] [place] [address] [address] PCP - Orthopaedics 07/14/20 Aaron Arzate MD [address] 177695 PCP - General Family Medicine 10/05/20 Sarah Woods MD [address] 334215 Assigned Pulmonology Provider 09/11/20 Fracisco See MD [address] [place], [place] [address] Assigned Musculoskeletal Provider 05/07/22 04/10/24 [place] [address] [facility] [place] [address] Pain Medicine 01/18/23 Vishal Roy MD [address] 007735 Pain Medicine 03/09/23 Craig Ku MD 909 [facility] [id number] [address] Assigned Neuroscience Provider 10/21/23 documented as of this encounter
--- OUTSIDE RECORDS SUMMARY | 2024-07-08 13:47 | XMS_ITS | Encounter Summary ---
Author Organization [facility] Address [address] [place] [address]. [place] [address] Care Team Providers Care President Ceo & Founder Name Role Phone Craig Shaikh MD Unavailable [phone] Sarah Woods MD Unavailable [phone] Aaron Arzate MD Primary Care Provider [phone] Caitie Sheth MD Unavailable Vishal Roy MD Unavailable + [phone] Craig Ku MD Unavailable [phone] Reason for Visit * Reason Comments Medication Refill Encounter Details Date Type Department Care Team (Late st Contact Info) Description 04/26/2024 Refill [facility] [address] [place] [address] Sarah Woods MD [address] [place] [address] 276 [place] [address] Medication Refill Social History Tobacco [...] file Gender Identity Female 10/12/2020 11:38 AM 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 Sexual Orientation Not on file documented as of this encounter Plan of Treatment Upcoming Encounters Date Type Department Care Team (Late st Contact Info) Description 01/07/2025 1:30 PM SUPERVISOR STAGE CARPENTRY Office Visit [facility] and [address] [phone] Sarah Woods MD [address] 9679[address] documented as of this encounter Visit Diagnoses Diagnosis Moderate persistent asthma without complication Unspecified asthma Dyspnea on exertion Other dyspnea and respiratory abnormality documented in this encounter Care Teams President Ceo & Founder Relationship Specialty Start Date End Date Craig Shaikh MD [address] [place] [address] PCP - Orthopaedics 07/14/20 Aaron Arzate MD [address] [place] [address] [phone] PCP - General Family Medicine 10/05/20 Sarah Woods MD [address] [place] [address] 548235 Assigned Pulmonology Provider 09/11/20 [place] [address] [phone] Pain Medicine 01/18/23 Vishal Roy MD [address] 843075 Pain Medicine 03/09/23 Craig Ku MD [address] [place], [place] [address], [place] [address] Assigned Neuroscience Provider 10/21/23 documented as of this encounter
--- OUTSIDE RECORDS SUMMARY | 2024-07-08 13:47 | XMS_ITS | Continuity of Care Document ---
Author Organization [facility] Address [address] [place] [address] Phone Care Team Providers Care Center Maker Hand Name Role Phone Abdirahman AMEZCUA, PhD, Jensen [...] ient Visit,Est, Mod [facility], [address], [place], [id number], [place] tel:[phone] [facility] Arthrodesis status Abdirahman Styles. [facility], [address], [place], [address], [place]. tel:[phone] Referring Provider: [facility] [address] [place], [address]. tel:[phone] Office/Outpat ient Visit,New, Lindy [facility], [address], [place], [place], [address], [place] tel:[phone] [facility] Other idiopathic scoliosis, thoracic region Abdirahman Styles. [facility], [address], [place], [address], [place]. tel:[phone] Referring Provider: [facility] [address] [place], [address]. tel:[phone] Family History Family Member Type Diagnosis Age [...]
--- OUTSIDE RECORDS SUMMARY | 2024-07-08 13:47 | XMS_ITS | Clinical Summary ---
Author Organization [facility] Address [address] [place] [address] Care Team Providers Care Fermenter Operator Name Role Phone Craig Shaikh MD Unavailable [phone] Sarah Woods MD Unavailable [phone] Aaron Arzate MD Primary Care Provider [phone] Caitie Sheth MD Unavailable Vishal Roy MD Unavailable + [phone] Craig Ku MD Unavailable [phone] Allergies Active Allergy Reactions Criticality Noted Date [...] HOURS NEEDED 18 g 2 3 Active gabapentin (NEURONTIN) 300 MG capsuleIndications [...] AT BEDTIME 30 tablet 2 4 Active ipratropium - albuterol 0.5 mg/2.5 mg/3 mL (DUONEB) 0.5-2.5 (3) MG/3ML neb solutionIndication s:Moderate persistent asthma without complication,Dyspn ea on exertion Take 1 vial (3 mLs) by nebulization every 6 hours as needed for shortness of breath, wheezing or cough 180 mL 3 4 Active BREYNA 160-4.5 MCG/ACT InhalerIndications :Moderate persistent asthma without complication INHALE 2 PUFFS ONCE DAILY PLUS 1 TO 2 PUFFS NEEDED. MAY USE UP TO 12 PUFFS PER DAY. 10.3 g 11 4 Active budesonide-formote rol (SYMBICORT) 160-4.5 MCG/ACT InhalerIndications :Moderate persistent asthma without complication Inhale 2 puffs once daily plus 1-2 puffs as needed. May use up to 12 puffs per day. 20.4 g 11 3 07/08/20 24 Discontinued Active Problems Problem Noted Date Diagnosed Date Intermittent asthma 08/21/2020 Pseudoarthrosis of lumbar spine 07/21/2020 Overview: Added automatically from request for surgery [id number] Foraminal stenosis of lumbar region 07/21/2020 Overview: Added automatically from request for surgery [id number] Elevated coronary artery calcium score 9 Sesamoiditis 02/09/2009 Scoliosis, adolescent acquired 03/23/1964 Encounters Date Type Department Care Team Description 07/06/2024 Refill [facility] Lung Science and [address] [address] Sarah Woods MD Medication Refill 05/28/[address] [address] Sarah Woods MD Call Back 04/26/2024 Refill [facility] [address] [address] Sarah Woods MD Medication Refill [...] file Gender Identity Female 10/12/2020 11:38 AM VFX ARTIST Sexual Orientation Not on file Last Filed Vital Signs Vital Sign Reading Time Taken Comments Blood Pressure 143/84 10/16/2023 10:18 AM VFX ARTIST Pulse 76 01/09/2024 3:02 PM VFX ARTIST Temperature 36.8 ??C (98.2 ??F) 09/20/2022 11:15 AM C DT Respiratory Rate 16 10/16/2023 10:18 AM VFX ARTIST Oxygen Saturation 97% 01/09/2024 3:02 PM VFX ARTIST Inhaled Oxygen Concentration - - Weight 83.9 kg (185 lb) 10/16/2023 10:18 AM VFX ARTIST Height 160 cm (5' 3) 10/16/2023 10:18 AM VFX ARTIST Body Mass Index 32.77 10/16/2023 10:18 AM VFX ARTIST Plan of Treatment Upcoming Encounters Date Type Department Care Team (Late st Contact Info) Description 01/07/2025 1:30 PM VFX ARTIST Office Visit [facility] [address] [address] Sarah Woods MD [address] [place] [address] Health Maintenance Due Date Last Done Comments [...] CONTROL TEST 11/02/2022 05/03/2022 GLUCOSE 09/28/2023 09/28/2020, 1106/2020, 09/26/2020, Additional history exists PHQ-2 (once per [...] this topic Medical Devices Implanted Type Area Hair Boiler Device Identifier Shelf Expiration Date Model / Serial / Lot Graft Bone Crush Canc 30ml [id number] Implanted:Qty : 1 on 09/21/2020 by Fracisco See MD at [facility] Bone/Tissu e/Biologic N/A: Spine Lumbar MUSCULOSKELETAL OBANDO 07/13/2023 [id number] / [id number] / Graft Bone Crush Canc 30ml [id number] Implanted:Qty : 1 on 09/21/2020 by Fracisco See MD at [facility] Bone/Tissu e/Biologic N/A: Spine Lumbar MUSCULOSKELETAL OBANDO 07/08/[id number] / [id number] / Imp Scr Medt 5.5/6.0mm Solera 6.5x40mm Ma [id number] Implanted:Qty : 2 on 09/21/2020 by Fracisco See MD at [facility] Metallic Hardware/A nchor N/A: Spine Lumbar [employer] [id number] / / [id number] Imp Scr Medt 5.5/6.0mm Solera 6.5x30mm Ma [id number] Implanted:Qty : 1 on 09/21/2020 by Fracisco See MD at [facility] Metallic Hardware/A nchor N/A: Spine Lumbar [employer] [id number] / / [id number] Imp Scr Medt 5.5/6.0mm Solera 5.5x45mm Ma [id number] Implanted:Qty : 1 on 09/21/2020 by Fracisco See MD at [facility] Metallic Hardware/A nchor N/A: Spine Lumbar [employer] [id number] / / [id number] Imp Scr Medt 5.5/6.0mm Solera 5.5x40mm Ma [id number] Implanted:Qty : 2 on 09/21/2020 by Fracisco See MD at [facility] Metallic Hardware/A nchor N/A: Spine Lumbar [employer] [id number] / / [id number] Imp Connector Medt [place] Closed 5.5mm [id number] Implanted:Qty : 2 on 09/21/2020 by Fracisco See MD at [facility] Metallic Hardware/A nchor N/A: Spine Lumbar [employer] [id number] / / Imp Connector Channelview Medt 5.5mm [id number] Implanted:Qty : 2 on 09/21/2020 by Fracisco See MD at [facility] Metallic Hardware/A nchor N/A: Spine Lumbar [employer] [id number] / / Imp Scr Set Torres Medt 5.5 To 5.5mm [id number] Implanted:Qty : 8 on 09/21/2020 by Fracisco See MD at [facility] Metallic Hardware/A nchor N/A: Spine Lumbar [employer] [id number] / / Imp Matias Medt Solera Lined [id number] Chr [id number] Implanted:Qty : 2 on 09/21/2020 by Fracisco See MD at [facility] Metallic Hardware/A nchor N/A: Spine Lumbar [employer] [id number] / / Imp Scr Set Medt Solera Break Off 5.5mm Ti [id number] Implanted:Qty : 10 on 09/21/2020 by Fracisco See MD at [facility] Metallic Hardware/A nchor N/A: Spine Lumbar [employer] [id number] / / [id number] Imp Scr Medt 5.5/6.0mm Solera 7.5x45mm Ma [id number] Implanted:Qty : 1 on 09/21/2020 by Fracisco See MD at [facility] Metallic Hardware/A nchor N/A: Spine Lumbar [employer] [id number] / / [id number] Imp Scr Medt 5.5/6.0mm Solera 7.5x35mm Ma [id number] Implanted:Qty : 1 on 09/21/2020 by Fracisco See MD at [facility] Metallic Hardware/A nchor N/A: Spine Lumbar [employer] [id number] / / [id number] Ifuse Implant System 7.0mm X 90 Mm Implant Implanted:Qty : 1 on 09/21/2020 by Fracisco See MD at [facility] Right: Sacrum [employer] 11/04/2024 7090M-90 / / [id number] Description:SI Joint Ifuse Implant System 7.0mm X 90 Mm Implant Implanted:Qty : 1 on 09/21/2020 by Fracisco See MD at [facility] Left: Sacrum [employer] 03/11/2055 7090M-90 / / [id number] Description:SI Joint 9.5 X 100 Ballast Screw Implanted:Qty : 2 on 09/21/2020 by Fracisco See MD at [facility] N/A: Spine Lumbar [id number] / / Explanted Type Area Hair Boiler Device Identifier Shelf Expiration Date Model / Serial / Lot Imp Scr Medt 5.5/6.0mm Solera 6.5x40mm Ma [id number] Explanted:Qty: 1 on 09/21/2020 by Fracisco See MD at [facility] Metallic Hardware/An chor N/A: Spine Lumbar [employer] [id number] / / [id number] Imp Scr Medt 5.5/6.0mm Solera 7.5x45mm Ma [id number] Explanted:Qty: 1 on 09/21/2020 by Fracisco See MD at [facility] Metallic Hardware/An chor N/A: Spine Lumbar [employer] [id number] / / Imp Scr Medt 5.5/6.0mm Solera 5.5x45mm Ma [id number] Explanted:Qty: 1 on 09/21/2020 by Fracisco See MD at [facility] Metallic Hardware/An chor N/A: Spine Lumbar [employer] [id number] / / [id number] Imp Scr Medt 5.5/6.0mm Solera 5.5x40mm Ma [id number] Explanted:Qty: 1 on 09/21/2020 by Fracisco See MD at [facility] Metallic Hardware/An chor N/A: Spine Lumbar [employer] [id number] / / [id number] Imp Scr Medt 5.5/6.0mm Solera 6.5x30mm Ma [id number] Explanted:Qty: 1 on 09/21/2020 by Fracisco See MD at [facility] Metallic Hardware/An chor N/A: Spine Lumbar [employer] [id number] / / [id number] Posterior Spine Explants Explanted:Qty: 1 on 09/21/2020 by Fracisco See MD at [facility] Bilateral : Spine Lumbar Procedures Procedure Name Priority Date/Time Associated Diagnosis Comments BASIC METABOLIC PANEL Routine 09/28/2020 6:25 AM VFX ARTIST Pneumonia due to 2019 novel coronavirus DX PERIPHERAL WRIST Routine 07/16/2020 1 :09 PM CDT Other specified disorders of bone density and structure, other site MAMMOGRAM - HIM SCAN 07/18/2019 12:00 AM CDT from Last 3 Months or Most Recently Relevant to Health Maintenance Results * (ABNORMAL) Basic metabolic panel (09/28/2020 6:25 AM VFX ARTIST) Sodium 141 133 - 144 mmol/L 09/28/2020 7:05 AM VFX ARTIST [facility] Potassium 4.0 3.4 - 5.3 mmol/L 09/28/2020 7:05 AM VFX ARTIST [facility] Chloride 110(H) 94 - 109 mmol/L 09/28/2020 7:05 AM VFX ARTIST [facility] Carbon Dioxide 25 20 - 32 mmol/L 09/28/2020 7:10 AM VFX ARTIST [facility] Anion Gap 6 3 - 14 mmol/L 09/28/2020 7:10 AM VFX ARTIST [facility] Glucose 116(H) 70 - 99 mg/dL 09/28/2020 7:10 AM VFX ARTIST [facility] Urea Nitrogen 11 7 - 30 mg/dL 09/28/2020 7:10 AM VFX ARTIST [facility] Creatinine 0.53 0.52 - 1.04 mg/dL 09/28/2020 7:10 AM VFX ARTIST [facility] GFR Estimate >90 >60 mL/min/{1. 73_m2} 09/28/2020 7:10 AM VFX ARTIST [facility] Comment: Non GFR Calc Starting 11/06/2018, serum creatinine based estimated GFR (eGFR) will be calculated using the Chronic Kidney Disease Epidemiology Collaboration (CKD-EPI) equation. GFR Estimate If Black >90 >60 mL/min/{1. 73_m2} 09/28/2020 7:10 AM VFX ARTIST [facility] Comment: GFR Calc Starting 11/06/2018, serum creatinine based estimated GFR (eGFR) will be calculated using the Chronic Kidney Disease Epidemiology Collaboration (CKD-EPI) equation. Calcium 8.6 8.5 - 10.1 mg/dL 09/28/2020 7:10 AM VFX ARTIST [facility] Blood specimen (specimen) 09/28/2020 6:25 AM VFX ARTIST 09/28/2020 6:26 AM VFX ARTIST Rajat Moreland MD LAB - BLOOD ORDERABL ES [facility] * Dexa wrist heel (07/16/2020 1:09 PM CDT) Anatomical Region Laterality Modality Dexa Bone Mineral Den sity Narrative 07/20/2020 10:05 AM CDT Results are reported under DXA scan report for the hip/spine performed on the same day. Principal result field map editor: Dante Ocampo MD, CCD Division of Diabetes, Endocrinology and Metabolism [facility] [phone] Fracisco See MD IMG DEXA ORDERABLES * MAMMOGRAM - HIM SCAN (07/18/2019 12:00 AM CDT) Anatomical Region Laterality Modality Other 07/18/2019 Provider Outside IMG MAMMOGRAPHY ORDE DEBBIE from Last 3 Months or Most Recently Relevant to Health Maintenance Advance Directives For more information, please contact: [phone] * Full Code (Latest Code Status on File) Date Activated Date Inactivated Comments 09/21/2020 9:01 PM 09/30/2020 6:25 PM All basic a nd advanced life-sustaining interventions are performed as appropriate Question Answer Comments Code status determined by: Discussion with patie nt/ legal decision maker Care Teams Fermenter Operator Relationship Specialty Start Date End Date Craig Shaikh MD [address] [place] [address] PCP - Orthopaedics 07/14/20 Aaron Arzate MD 420 [facility] [address] [place], [place] [id number] PCP - General Family Medicine 10/05/20 Sarah Woods MD 420 [facility] [address] [place], [place] 7[address]64[address] Assigned Pulmonology Provider 09/11/20 [place] [address] [place], [place] [address] Pain Medicine 01/18/23 Vishal Roy MD [address] 827035 Pain Medicine 03/09/23 Craig Ku MD [address] [id number] [place] [address] Assigned Neuroscience Provider 10/21/23
--- OUTSIDE RECORDS SUMMARY | 2024-07-08 13:47 | XMS_ITS | Encounter Summary ---
Author Organization [place] Address [address] [place] [address]. [place] [address] Care Team Providers Care Termite Technician Name Role Phone Craig Shaikh MD Unavailable [phone] Sarah Woods MD Unavailable [phone] Aaron Arzate MD Primary Care Provider [phone] Caitie Sheth MD Unavailable Vishal Roy MD Unavailable + [phone] Craig Ku MD Unavailable [phone] Reason for Referral * Medication Prior Authorization - Closed Specialty Diagnoses / Procedures Referred By Karen marsh Referred To Contact Diagnoses Moderate persistent asthma without complication Dyspnea on exertion Sarah Woods MD [address] [place] [address] Referral ID Status Reason Start Date Expiration Date Visits Re quested Visits Authorized [id number] Closed 1 1 Reason for Visit * Reason Onset Date Comments Call Back 05/28/2024 Encounter Details Date Type Department Care Team (Late st Contact Info) Description 05/28/2024 Telephone [facility] [address] [place] [address] Sarah Woods MD [address] [address] Call Back Social History Tobacco Use [...] file Gender Identity Female 10/12/2020 11:38 AM 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 Patient is now home, and feeling OK. Patient states she is still covid symptomatic, tired, sob, and productive cough. Patient would like Rx for Duoneb to have on hand. RN offered her clinic slot with Fellow, and patient declines to schedule at the moment. Patientwill monitor if her symptoms improve. RN will keep patient on Dr. Woods's waitlist. -TO Emery * Telephone Encounter - Sofya Cerda RN - 05/28/2024 3:31 PM CDT RN spoke with patient to gather more information on her call. Patient is currently inpatient at [facility] in [place] for COVID. Overall, patient feels OK. Patient is wondering if Dr. Woods would be OK writing prescription for Duoneb. Patient states she has used duonebs in the past and that it provides relief for her. She would also like to know if Dr. Woods is OK with patient seeing a different side seam tender before follow up in December 2024. -OT Emery * Telephone Encounter - Sanjuanita Cerda - 05/28/2024 2:33 PM CDT [facility] Phone [...] st Contact Info) Description 01/07/2025 1:30 PM MILLING OPERATOR Office Visit [facility] [address] [phone] Sarah Woods MD [address] [place] [id number] documented as of this encounter Visit Diagnoses Diagnosis Moderate persistent asthma without complication- Primary Unspecified asthma Dyspnea on exertion Other dyspnea and respiratory abnormality documented in this encounter Care Teams Termite Technician Relationship Specialty Start Date End Date Craig Shaikh MD [address] [place] [address] PCP - Orthopaedics 07/14/20 Aaron Arzate MD [address] 488075 PCP - General Family Medicine 10/05/20 Sarah Woods MD [address] [id number] Assigned Pulmonology Provider 09/11/20 [place] [address] [place] [address] Pain Medicine 01/18/23 Vishal Roy MD [address] [address] Pain Medicine 03/09/23 Craig Ku MD [address] [facility] - [id number] [address] Assigned Neuroscience Provider 10/21/23 documented as of this encounter
--- OUTSIDE RECORDS SUMMARY | 2024-07-08 13:47 | XMS_ITS | Encounter Summary ---
Author Organization [place] Address [address] [place] [address]. [place] [address] Care Team Providers Care Solderer Name Role Phone Craig Shaikh MD Unavailable [phone] Sarah Woods MD Unavailable [phone] Aaron Arzate MD Primary Care Provider [phone] Caitie Sheth MD Unavailable Vishal Roy MD Unavailable + [phone] Craig Ku MD Unavailable [phone] Reason for Visit * Reason Comments Medication Refill Encounter Details Date Type Department Care Team (Late st Contact Info) Description 07/06/2024 Refill [facility] [id number] [place] [address] Sarah Woods MD [address] [place] [address] 276 [place] [address] Medication Refill Social History Tobacco [...] file Gender Identity Female 10/12/2020 11:38 AM FOREIGN LANGUAGE INTERPRETER Sexual Orientation Not on file documented as of this encounter Plan of Treatment Upcoming Encounters Date Type Department Care Team (Late st Contact Info) Description 01/07/2025 1:30 PM FOREIGN LANGUAGE INTERPRETER Office Visit [facility] [address] [phone] Sarah Woods MD [address] 336595 documented as of this encounter Visit Diagnoses Diagnosis Moderate persistent asthma without complication Unspecified asthma documented in this encounter Care Teams Solderer Relationship Specialty Start Date End Date Craig Shaikh MD [address] [place] [address] PCP - Orthopaedics 07/14/20 Aaron Arzate MD [address] [id number] PCP - General Family Medicine 10/05/20 Sarah Woods MD [address] [place] [address] [id number] Assigned Pulmonology Provider 09/11/20 [place] [address] [place] [address] 126617 Pain Medicine 01/18/23 Vishal Roy MD [address] 644895 Pain Medicine 03/09/23 Craig Ku MD [address] [place] [address] [id number], [place] 6[address] Assigned Neuroscience Provider 10/21/23 documented as of this encounter
--- OUTSIDE RECORDS SUMMARY | 2024-07-08 13:47 | XMS_ITS | Referral Summary ---
Author Organization [place] Address [address] [place] [address]. [place] [address] Care Team Providers Care Coverage Analyst Name Role Phone Craig Shaikh MD Unavailable [phone] Sarah Woods MD Unavailable [phone] Aaron Arzate MD Primary Care Provider Caitie Sheth MD Unavailable Vishal oRy MD Unavailable + [phone] Craig Ku MD Unavailable [phone] Encounters Date Type Department Care Team Description 07/06/2024 Refill [facility] [address] [phone] Sarah Woods MD Medication Refill 05/28/2024 Telephone [facility] [address] [phone] Sarah Woods MD Call Back 04/26/2024 Refill [facility] [address] [address] Sarah Woods MD Medication Refill [...] Overview: Added automatically from request for surgery [id number] Foraminal stenosis of lumbar region 07/21/2020 Overview: Added automatically from request for surgery [id number] Elevated coronary artery calcium score 9 Sesamoiditis [...] file Gender Identity Female 10/12/2020 11:38 AM HEALTH SERVICES ADMINISTRATOR Sexual Orientation Not on file Last Filed Vital Signs Vital Sign Reading Time Taken Comments Blood Pressure 143/84 10/16/2023 10:18 AM HEALTH SERVICES ADMINISTRATOR Pulse 76 01/09/2024 3:02 PM HEALTH SERVICES ADMINISTRATOR Temperature 36.8 ??C (98.2 ??F) 09/20/2022 11:15 AM C DT Respiratory Rate 16 10/16/2023 10:18 AM HEALTH SERVICES ADMINISTRATOR Oxygen Saturation 97% 01/09/2024 3:02 PM HEALTH SERVICES ADMINISTRATOR Inhaled Oxygen Concentration - - Weight 83.9 kg (185 lb) 10/16/2023 10:18 AM HEALTH SERVICES ADMINISTRATOR Height 160 cm (5' 3) 10/16/2023 10:18 AM HEALTH SERVICES ADMINISTRATOR Body Mass Index 32.77 10/16/2023 10:18 AM HEALTH SERVICES ADMINISTRATOR Plan of Treatment Upcoming Encounters Date Type Department Care Team (Late st Contact Info) Description 01/07/2025 1:30 PM HEALTH SERVICES ADMINISTRATOR Office Visit [facility] [address] [address] Sarah Woods MD [address] [place] [address] Medical Devices Implanted Type Area Dining Room Attendant Device Identifier Shelf Expiration Date Model / Serial / Lot Graft Bone Crush Canc 30ml [id number] Implanted:Qty : 1 on 09/21/2020 by Fracisco See MD at [facility] Bone/Tissu e/Biologic N/A: Spine Lumbar MUSCULOSKELETAL OBANDO 07/13/2023 [id number] / [id number] / Graft Bone Crush Canc 30ml [id number] Implanted:Qty : 1 on 09/21/2020 by Fracisco See MD at [facility] Bone/Tissu e/Biologic N/A: Spine Lumbar MUSCULOSKELETAL OBANDO 07/08/2023 [id number] / [id number] / Imp Scr Medt 5.5/6.0mm Solera 6.5x40mm Ma [id number] Implanted:Qty : 2 on 09/21/2020 by Fracisco See MD at [facility] Metallic Hardware/A nchor N/A: Spine Lumbar [employer] [id number] / / [id number] Imp Scr Medt 5.5/6.0mm Solera 6.5x30mm Ma [id number] Implanted:Qty : 1 on 09/21/2020 by Fracisco See MD at [facility] Metallic Hardware/A nchor N/A: Spine Lumbar [employer] [id number] / / [id number] Imp Scr Medt 5.5/6.0mm Solera 5.5x45mm Ma [id number] Implanted:Qty : 1 on 09/21/2020 by Fracisco See MD at [facility] Metallic Hardware/A nchor N/A: Spine Lumbar [employer] [id number] / / [id number] Imp Scr Medt 5.5/6.0mm Solera 5.5x40mm Ma [id number] Implanted:Qty : 2 on 09/21/2020 by Fracisco See MD at [facility] Metallic Hardware/A nchor N/A: Spine Lumbar [employer] [id number] / / [id number] Imp Connector Medt [place] Closed 5.5mm [id number] Implanted:Qty : 2 on 09/21/2020 by Fracisco See MD at [facility] Metallic Hardware/A nchor N/A: Spine Lumbar [employer] [id number] / / Imp Connector Torres Medt 5.5mm [id number] Implanted:Qty : 2 on 09/21/2020 by Fracisco See MD at [facility] Metallic Hardware/A nchor N/A: Spine Lumbar [employer] [id number] / / Imp Scr Set Torres Medt 5.5 To 5.5mm [id number] Implanted:Qty : 8 on 09/21/2020 by Fracisco See MD at [facility] Metallic Hardware/A nchor N/A: Spine Lumbar [employer] [id number] / / Imp Matias Medt Solera Lined 5.5d655ni Chr [id number] Implanted:Qty : 2 on 09/21/2020 by Fracisco See MD at [facility] Metallic Hardware/A nchor N/A: Spine Lumbar [employer] [id number] / / Imp Scr Set Medt Solera Break Off 5.5mm Ti [id number] Implanted:Qty : 10 on 09/21/2020 by Fracisco See MD at [facility] Metallic Hardware/A nchor N/A: Spine Lumbar [employer] [id number] / / [id number] Imp Scr Medt 5.5/6.0mm Solera 7.5x45mm Ma [id number] Implanted:Qty : 1 on 09/21/2020 by Fracisco See MD at [facility] Metallic Hardware/A nchor N/A: Spine Lumbar [employer] [id number] / / [id number] Imp Scr Medt 5.5/6.0mm Solera 7.5x35mm Ma [id number] Implanted:Qty : 1 on 09/21/2020 by Fracisco See MD at [facility] Metallic Hardware/A nchor N/A: Spine Lumbar [employer] [id number] / / [id number] Ifuse Implant System 7.0mm X 90 Mm Implant Implanted:Qty : 1 on 09/21/2020 by Fracisco See MD at [facility] Right: Sacrum [employer] 11/04/2024 7090M-90 / / [id number] Description:SI Joint Ifuse Implant System 7.0mm X 90 Mm Implant Implanted:Qty : 1 on 09/21/2020 by Fracisco See MD at [facility] Left: Sacrum [employer] 03/11/2055 7090M-90 / / [id number] Description:SI Joint 9.5 X 100 Ballast Screw Implanted:Qty : 2 on 09/21/2020 by Fracisco See MD at [facility] N/A: Spine Lumbar [id number] / / Explanted Type Area Dining Room Attendant Device Identifier Shelf Expiration Date Model / Serial / Lot Imp Scr Medt 5.5/6.0mm Solera 6.5x40mm Ma [id number] Explanted:Qty: 1 on 09/21/2020 by Fracisco See MD at [facility] Metallic Hardware/An chor N/A: Spine Lumbar [employer] [id number] / / [id number] Imp Scr Medt 5.5/6.0mm Solera 7.5x45mm Ma [id number] Explanted:Qty: 1 on 09/21/2020 by Fracisoc See MD at [facility] Metallic Hardware/An chor N/A: Spine Lumbar [employer] [id number] / / Imp Scr Medt 5.5/6.0mm Solera 5.5x45mm Ma [id number] Explanted:Qty: 1 on 09/21/2020 by Fracisco See MD at [facility] Metallic Hardware/An chor N/A: Spine Lumbar [employer] [id number] / / [id number] Imp Scr Medt 5.5/6.0mm Solera 5.5x40mm Ma [id number] Explanted:Qty: 1 on 09/21/2020 by Fracisco See MD at [facility] Metallic Hardware/An chor N/A: Spine Lumbar [employer] [id number] / / [id number] Imp Scr Medt 5.5/6.0mm Solera 6.5x30mm Ma [id number] Explanted:Qty: 1 on 09/21/2020 by Fracisco See MD at [facility] Metallic Hardware/An chor N/A: Spine Lumbar [employer] [id number] / / [id number] Posterior Spine Explants Explanted:Qty: 1 on 09/21/2020 by Fracisco See MD at [facility] Bilateral : Spine Lumbar Procedures Procedure Name Priority Date/Time Associated Diagnosis Comments BASIC METABOLIC PANEL Routine 09/28/2020 6:25 AM HEALTH SERVICES ADMINISTRATOR Pneumonia due to 2019 novel coronavirus DX PERIPHERAL WRIST Routine 07/16/2020 1 :09 PM CDT Other specified disorders of bone density and structure, other site MAMMOGRAM - HIM SCAN 07/18/2019 12:00 AM CDT from Last 3 Months or Most Recently Relevant to Health Maintenance Results * (ABNORMAL) Basic metabolic panel (09/28/2020 6:25 AM HEALTH SERVICES ADMINISTRATOR) Sodium 141 133 - 144 mmol/L 09/28/2020 7:05 AM HEALTH SERVICES ADMINISTRATOR [facility] Potassium 4.0 3.4 - 5.3 mmol/L 09/28/2020 7:05 AM HEALTH SERVICES ADMINISTRATOR [facility] Chloride 110(H) 94 - 109 mmol/L 09/28/2020 7:05 AM HEALTH SERVICES ADMINISTRATOR [facility] Carbon Dioxide 25 20 - 32 mmol/L 09/28/2020 7:10 AM HEALTH SERVICES ADMINISTRATOR [facility] Anion Gap 6 3 - 14 mmol/L 09/28/2020 7:10 AM HEALTH SERVICES ADMINISTRATOR [facility] Glucose 116(H) 70 - 99 mg/dL 09/28/2020 7:10 AM HEALTH SERVICES ADMINISTRATOR [facility] Urea Nitrogen 11 7 - 30 mg/dL 09/28/2020 7:10 AM HEALTH SERVICES ADMINISTRATOR [facility] Creatinine 0.53 0.52 - 1.04 mg/dL 09/28/2020 7:10 AM HEALTH SERVICES ADMINISTRATOR [facility] GFR Estimate >90 >60 mL/min/{1. 73_m2} 09/28/2020 7:10 AM HEALTH SERVICES ADMINISTRATOR [facility] Comment: Non GFR Calc Starting 11/06/2018, serum creatinine based estimated GFR (eGFR) will be calculated using the Chronic Kidney Disease Epidemiology Collaboration (CKD-EPI) equation. GFR Estimate If Black >90 >60 mL/min/{1. 73_m2} 09/28/2020 7:10 AM HEALTH SERVICES ADMINISTRATOR [facility] Comment: GFR Calc Starting 11/06/2018, serum creatinine based estimated GFR (eGFR) will be calculated using the Chronic Kidney Disease Epidemiology Collaboration (CKD-EPI) equation. Calcium 8.6 8.5 - 10.1 mg/dL 09/28/2020 7:10 AM HEALTH SERVICES ADMINISTRATOR [facility] Blood specimen (specimen) 09/28/2020 6:25 AM HEALTH SERVICES ADMINISTRATOR 09/28/2020 6:26 AM HEALTH SERVICES ADMINISTRATOR Rajat Moreland MD LAB - BLOOD ORDERABL ES U [facility] * Dexa wrist heel (07/16/2020 1:09 PM CDT) Anatomical Region Laterality Modality Dexa Bone Mineral Den sity Narrative 07/20/2020 10:05 AM CDT Results are reported under DXA scan report for the hip/spine performed on the same day. Principal result tile professional: Dante Ocampo MD, [facility] Division of Diabetes, Endocrinology and Metabolism [facility] [phone] Fracisco See MD IMG DEXA ORDERABLES * MAMMOGRAM - HIM SCAN (07/18/2019 12:00 AM CDT) Anatomical Region Laterality Modality Other 07/18/2019 Provider Outside IMG MAMMOGRAPHY SHERMANE DEBBIE from Last 3 Months or Most Recently Relevant to Health Maintenance Advance Directives For more information, please contact: [phone] * Full Code (Latest Code Status on File) Date Activated Date Inactivated Comments 09/21/2020 9:01 PM 09/30/2020 6:25 PM All basic a nd advanced life-sustaining interventions are performed as appropriate Question Answer Comments Code status determined by: Discussion with patie nt/ legal decision maker Care Teams Coverage Analyst Relationship Specialty Start Date End Date Craig Shaikh MD [address] [place], [place] [address], [place] [address] PCP - Orthopaedics 07/14/20 Aaron Arzate MD [address] [phone] PCP - General Family Medicine 10/05/20 Sarah Woods MD [address] [address] Assigned Pulmonology Provider 09/11/20 [place] [address] [address] Pain Medicine 01/18/23 Vishal Roy MD [address] 620155 Pain Medicine 03/09/23 Craig Ku MD [address] [facility] [address] Assigned Neuroscience Provider 10/21/23
--- OUTSIDE RECORDS SUMMARY | 2024-07-08 13:48 | XMS_ITS | Encounter Summary ---
Author Organization [place] Address [address] [place] [address] Care Team Providers Care Ticker Maintainer Name Role Phone May Solo Primary Care Provider Unavailab Craig Rodriguez MD Unavailable [phone] Fracisco See MD Unavailable [phone] Brian Watkins MD Unavailable [phone] Sarah Woods MD Unavailable [phone] Aaron Arzate MD Primary Care Provider Beth Cedeno MD Unavailable [phone] Shanda Link PA-C Unavailable [phone] Fracisco See MD Unavailable [phone] Shanda Link PA-C Unavailable [phone] Myron Mcqueen DO Unavailable [phone] Rebecca Taylor DO Unavailable Fracisco See MD Unavailable [phone] Myron Mcqueen DO Unavailable [phone] Caitie Sheth MD Unavailable Vishal Roy MD Unavailable + [phone] Rebecca Taylor DO Unavailable Craig Ku MD Unavailable [phone] Reason for Visit * Reason Onset Date Comments Appointment 10/02/2019 Pt called to isabel jennile holter monitor and her walk. Not seeing orders and message was sent last week to clinic. Will send another message. Encounter Details Date Type Department Care Team (Late st Contact Info) Description 10/02/2019 Telephone [facility] [address] [place] [address] Brian Watkins MD [address] [place] [address] [address] [place] [address] Appointment ( Pt called to [...] file Gender Identity Female 10/12/2020 11:38 AM JEWELRY CASTING MODEL MAKER APPRENTICE Sexual Orientation Not on file documented as of this encounter Miscellaneous Notes * Telephone Encounter - Myranda Eckert - 10/02/2019 1:09 PM CST [facility] Phone Message May a detailed message be left on voicemail: yes Reason for Call: Pt called to schedule holter monitor and her walk. Not seeing orders and message was sent last week to clinic. Will send another message. Not sure if It was sent to the correct department. Action Taken: THORACIC CARE COORDINATION-UMP LRY CASTING MODEL MAKER APPRENTICE documented in this encounter Plan of Treatment Upcoming Encounters Date Type Department Care Team (Late st Contact Info) Description 01/07/2025 1:30 PM JEWELRY CASTING MODEL MAKER APPRENTICE Office Visit [facility] [address] [address] Sarah Woods MD [address] [place] [address] 276 [place] [address] documented as of this encounter Visit Diagnoses Not on filedocumented in this encounter Additional Health Concerns Infection Onset Date Last Indicated Resolved Time Rule Out COVID-19 09/24/2020 09/24/2020 09/25/2020 11:20 AM JEWELRY CASTING MODEL MAKER APPRENTICE Rule Out COVID-19 09/26/2020 09/26/2020 09/27/2020 12:59 PM JEWELRY CASTING MODEL MAKER APPRENTICE COVID-19 09/26/2020 09/26/2020 10/17/2020 11:4 1 PM JEWELRY CASTING MODEL MAKER APPRENTICE documented as of this encounter Care Teams Ticker Maintainer Relationship Specialty Start Date End Date May Solo PCP - General 05/07/12 10/04/20 Craig Shaikh MD [address] [address] PCP - Orthopaedics 07/14/20 Aaron Arzate MD 420 [facility] [address] [place], [place] [address] PCP - General Family Medicine 10/05/20 Fracisco See MD [address] [place], [place] [id number] Assigned Musculoskeletal Provider 09/11/20 05/01/21 Brian Watkins MD 420 [facility] [address] [place], [place] 229[address] Assigned Surgical Provider 09/11/2003/27/21 Sarah Woods MD 420 [facility] [address] [place], [place] 8075[address] Assigned Pulmonology Provider 09/11/20 Beth Cedeno MD [address] [place] [address] 307375 Assigned Cancer Care Provider 12/06/20 06/03/22 Shanda Link PA-C [address] [place] [address] Assigned Musculoskeletal Provider 05/02/21 10/09/21 Fracisco See MD [address] [address] Assigned Musculoskeletal Provider 10/10/21 12/18/21 Shanda Link PA-C [address] [place] [address] Assigned Musculoskeletal Provider 12/19/21 05/06/22 Myron Mcqueen DO [address] [place] [address] Assigned Neuroscience Provider 03/27/22 04/02/22 Rebecca Taylor DO RAY Assigned Neuroscience Provider 04/03/22 11/11/22 Fracisco See MD [address] [address] Assigned Musculoskeletal Provider 05/07/22 04/10/24 Myron Mcqueen DO [address]47 [place] [address] Assigned Neuroscience Provider 11/12/22 09/08/23 [place] [address] [place] [address] Pain Medicine 01/18/23 Vishal Roy MD [address] [address] Pain Medicine 03/09/23 Rebecca Taylor DO RAY Assigned Neuroscience Provider 09/09/23 10/20/23 Craig Ku MD 909 [facility] [id number] [place] [address] Assigned Neuroscience Provider 10/21/23 documented as of this encounter
--- OUTSIDE RECORDS SUMMARY | 2024-07-08 13:48 | XMS_ITS | Encounter Summary ---
Author Organization [place] Address [address] [place] [address]. [place] [address] Care Team Providers Care Farm Crew Member Name Role Phone Craig Shaikh MD Unavailable [phone] Sarah Woods MD Unavailable [phone] Aaron Arzate MD Primary Care Provider [phone] Fracisco See MD Unavailable [phone] Caitie Sheth MD Unavailable Vishal Roy MD Unavailable [phone] Rebecca Taylor DO Unavailable Craig uK MD Unavailable [phone] Reason for Visit * Reason Onset Date Comments Call Back 10/02/2023 Encounter Details Date Type Department Care Team (Late st Contact Info) Description 10/02/2023 Telephone [facility] [address] [place] [address] Sarah Woods MD 420 [facility] 276 [place] [address] Call Back Social History Tobacco [...] file Gender Identity Female 10/12/2020 11:38 AM CRAYON PAINTER Sexual Orientation Not on file documented as [...] monitor her sats. Sleep study completed at [facility], I have asked that she have the report and notes faxed to our clinic for Dr Woods's review. Follow up with Dr Woods scheduled for 01/09. ON PAINTER * Telephone Encounter - Marsha Mckeon - 10/02/2023 4:33 PM CST [facility] Call Center Phone Message May a [...] Taken: Other: pulm Travel Screening: Not Applicable ON PAINTER documented in this encounter Plan of Treatment Upcoming Encounters Date Type Department Care Team (Guero st Contact Info) Description 01/07/2025 1:30 PM CRAYON PAINTER Office Visit [facility] [address] [place] [address] Sarah Woods MD [address] [place] [address] documented as of this encounter Visit Diagnoses Not on filedocumented in this encounter Care Teams Farm Crew Member Relationship Specialty Start Date End Date Craig Shaikh MD [address] [place], [place] [address], [place] [address] PCP - Orthopaedics 07/14/20 Aaron Arzate MD 420 [facility] 276 [place] [address] PCP - General Family Medicine 10/05/20 Sarah Woods MD 420 [facility] [address] [place] [address] Assigned Pulmonology Provider 09/11/20 Fracisco See MD [address] [place], [place] [address] Assigned Musculoskeletal Provider 05/07/22 04/10/24 [place] [address] [address] Pain Medicine 01/18/23 Vishal Roy MD [address] [address] Pain Medicine 03/09/23 Rebecca Taylor DO RAYUS Assigned Neuroscience Provider 09/09/23 10/20/23 Craig Ku MD [address] [facility] [id number] [place], [place] [address] Assigned Neuroscience Provider 10/21/23 documented as of this encounter
--- OUTSIDE RECORDS SUMMARY | 2024-07-08 13:48 | XMS_ITS | Encounter Summary ---
Author Organization [place] Address [address] [place] [address]. [place] [address] Care Team Providers Care Watchmaker Apprentice Name Role Phone Craig Shaikh MD Unavailable [phone] Sarah Woods MD Unavailable [phone] Aaron Arzate MD Primary Care Provider Rebecca Taylor DO Unavailable Fracisco See MD Unavailable [phone] Myron Mcqueen DO Unavailable [phone] Caitie Sheth MD Unavailable Vishal Roy MD Unavailable + [phone] Rebecca Taylor DO Unavailable Craig Ku MD Unavailable [phone] Reason for Visit * Reason Comments Medication Refill Encounter Details Date Type Department Care Team (Late st Contact Info) Description 06/27/2022 Refill [facility] [address] [place] [address] Rebecca Taylor DO RAY Medication Refill [...] file Gender Identity Female 10/12/2020 11:38 AM CNA PER DIEM Sexual Orientation Not on file documented as [...] st Contact Info) Description 01/07/2025 1:30 PM CNA PER DIEM Office Visit [facility] Science and [address] [phone] Sarah Woods MD [address] [place] [address]48245 documented as of this encounter Visit Diagnoses Diagnosis Lumbar radiculopathy Thoracic or lumbosacral neuritis or radiculitis, unspecified documented in this encounter Care Teams Watchmaker Apprentice Relationship Specialty Start Date End Date Craig Shaikh MD [address] [place] [address] PCP - Orthopaedics 07/14/20 Aaron Arzate MD [address] [place] [address] PCP - General Family Medicine 10/05/20 Sarah Woods MD [address] [place] [address] Assigned Pulmonology Provider 09/11/20 Rebecca Taylor DO RAYUS Assigned Neuroscience Provider 04/03/22 11/11/22 Fracisco See MD [facility] [address] [place] [address] Assigned Musculoskeletal Provider 05/07/22 04/10/24 Myron Mcqueen, DO 1747 [facility] [address] Assigned Neuroscience Provider 11/12/22 09/08/23 [place] [address] [place] [address] Pain Medicine 01/18/23 Vishal Roy MD 6545 [facility] [place] [address] Pain Medicine 03/09/23 Rebecca Taylor, DO RAYUS Assigned Neuroscience Provider 09/09/23 10/20/23 Craig Ku MD 9 [facility] [id number] [place] [address] Assigned Neuroscience Provider 10/21/23 documented as of this encounter
--- OUTSIDE RECORDS SUMMARY | 2024-07-08 13:48 | XMS_ITS | Encounter Summary ---
Author Organization [place] Address [address] [place] [address]. [place] [address] Care Team Providers Care Elevator Attendant Name Role Phone Craig Shaikh MD Unavailable [phone] Sarah Woods MD Unavailable [phone] Aaron rAzate MD Primary Care Provider Beth Cedeno MD Unavailable [phone] Shanda Link PA-C Unavailable [phone] Fracisco See MD Unavailable Shanda Link PA-C Unavailable [phone] Myron Mcqueen DO Unavailable [phone] Rebecca Taylor DO Unavailable Fracisco See MD Unavailable [phone] Myron Mcqueen DO Unavailable [phone] Caitie Sheth MD Unavailable Vishal Roy MD Unavailable + [phone] Rebecca Taylor DO Unavailable Craig Ku MD Unavailable [phone] Encounter Details Date Type Department Care Team (Late st Contact Info) Description 09/30/2021 [facility] [id number] [facility] [address] [place] [phone] Saira Felipe LPN Social History Tobacco Use Types Packs/Day Years Used Date Smoking Tobacco: Never Smokeless Tobacco: Never Alcohol Use Standard Drinks/Week Comments Not Currently 0 (1 standard drink = 0.6 oz pur e alcohol) PHQ-2 Answer Date Recorded PHQ-2 Score 0 12/18/2020 Sex and Gender Information Value Date Recorded Sex Assigned at Not on file Gender Identity Female 10/12/2020 11:38 AM LOGISTICS ANALYTICS MANAGER Sexual Orientation Not on file documented as of this encounter Plan of Treatment Upcoming Encounters Date Type Department Care Team (Late st Contact Info) Description 01/07/2025 1:30 PM LOGISTICS ANALYTICS MANAGER Office Visit [facility] Health Clinic [address] [phone] Sarah Woods MD [address] [place] [address] 812735 documented as of this encounter Visit Diagnoses Not on filedocumented in this encounter Care Teams Elevator Attendant Relationship Specialty Start Date End Date Craig Shaikh MD [address] [place] [address] PCP - Orthopaedics 07/14/20 Aaron Arzate MD [address] [place] [address]15 PCP - General Family Medicine 10/05/20 Sarah Woods MD [address] [place] [address] 615295 Assigned Pulmonology Provider 09/11/20 Beth Cedeno MD [address] [place] [address]54125 Assigned Cancer Care Provider 12/06/20 06/03/22 Shanda Link PA-C 909 [place] [address] Assigned Musculoskeletal Provider 05/02/21 10/09/21 Fracisco See MD [address] [place] [address] Assigned Musculoskeletal Provider 10/10/21 12/18/21 Shanda Link PA-C 9 [place] [address] Assigned Musculoskeletal Provider 12/19/21 05/06/22 Myron Mcqueen DO [address] [facility] [facility] [place] [address] Assigned Neuroscience Provider 03/27/22 04/02/22 Rebecca Taylor DO RAYUS Assigned Neuroscience Provider 04/03/22 11/11/22 Fracisco See MD [address] [address] Assigned Musculoskeletal Provider 05/07/22 04/10/24 Myron Mcqueen DO [address] [facility] [place] [place] [address] Assigned Neuroscience Provider 11/12/22 09/08/23 [place] [address] [place] [address] Pain Medicine 01/18/23 Vishal Roy MD [address] [address] Pain Medicine 03/09/23 Rebecca Taylor DO LINUS Assigned Neuroscience Provider 09/09/23 10/20/23 Craig Ku MD 909 [facility] [id number] [address] Assigned Neuroscience Provider 10/21/23 documented as of this encounter
--- OUTSIDE RECORDS SUMMARY | 2024-07-08 13:48 | XMS_ITS | Encounter Summary ---
Author Organization [place] Address [address] [place] [address] Care Team Providers Care Tar Heater Operator Name Role Phone May Solo Primary Care Provider Unavailab Craig Rodriguez MD Unavailable [phone] Fracisco See MD Unavailable [phone] Brian Watkins MD Unavailable [phone] Sarah Woods MD Unavailable [phone] Aaron Arzate MD Primary Care Provider [phone] Beth Cedeno MD Unavailable [phone] Shanda Link PA-C Unavailable [phone] Fracisco See MD Unavailable [phone] Shanda Link PA-C Unavailable [phone] Myron Mcqueen DO Unavailable [phone] Rebecca Taylor DO Unavailable Fracisco See MD Unavailable [phone] Myron Mcqueen DO Unavailable [phone] Caitie Sheth MD Unavailable Vishal Roy MD Unavailable + [phone] Rebecca Taylor DO Unavailable Craig Ku MD Unavailable [phone] Encounter Details Date Type Department Care Team (Late st Contact Info) Description 08/26/[address] [facility] [address] [place] [phone] Radha Greene, RN Social History Tobacco Use Types Packs/Day Years Used Date Smoking Tobacco: Never Smokeless Tobacco: Never Alcohol Use Standard Drinks/Week Comments Not Currently 0 (1 standard drink = 0.6 oz pur e alcohol) PHQ-2 Answer Date Recorded PHQ-2 Score 0 08/27/2019 Sex and Gender Information Value Date Recorded Sex Assigned at Not on file Gender Identity Female 10/12/2020 11:38 AM TOP ICER Sexual Orientation Not on file COVID-19 Exposure Response Date Recorded In the last month, have you been in contact with someone who was confirmed or suspected to have Coronavirus / COVID-19? No / Unsure 07/29/2020 12:52 PM CDT documented as of this encounter Plan of Treatment Upcoming Encounters Date Type Department Care Team (Late st Contact Info) Description 01/07/2025 1:30 PM TOP ICER Office Visit [facility] Health Clinic [address] [phone] Sarah Woods MD [address] [place] [address] documented as of this encounter Visit Diagnoses Not on filedocumented in this encounter Additional Health Concerns Infection Onset Date Last Indicated Resolved Time Rule Out COVID-19 09/24/2020 09/24/2020 09/25/2020 11:20 AM TOP ICER Rule Out COVID-19 09/26/2020 09/26/2020 09/27/2020 12:59 PM TOP ICER COVID-19 09/26/2020 09/26/2020 10/17/2020 11:4 1 PM TOP ICER documented as of this encounter Care Teams Tar Heater Operator Relationship Specialty Start Date End Date May Solo PCP - General 05/07/12 10/04/20 Craig Shaikh MD [address] [address] PCP - Orthopaedics 07/14/20 Aaron Arzate MD [address] [place] [address] PCP - General Family Medicine 10/05/20 Fracisco See MD [address] [place] [address] Assigned Musculoskeletal Provider 09/11/20 05/01/21 Brian Watkins MD [address] [place] [address] Assigned Surgical Provider 09/11/2003/27/21 Sarah Woods MD [address] [place] [address] Assigned Pulmonology Provider 09/11/20 Beth Cedeno MD [address] [place] [address] Assigned Cancer Care Provider 12/06/20 06/03/22 Shanda Link PA-C [address] [place] [address] Assigned Musculoskeletal Provider 05/02/21 10/09/21 Fracisco See MD [address] [place] [address] Assigned Musculoskeletal Provider 10/10/21 12/18/21 Shanda Link PA-C [address] [place] [address] Assigned Musculoskeletal Provider 12/19/21 05/06/22 Myron Mcqueen DO 1747 [place] [address] Assigned Neuroscience Provider 03/27/22 04/02/22 Rebecca Taylor DO RAYUS Assigned Neuroscience Provider 04/03/22 11/11/22 Fracisco See MD [address] [place] [address] Assigned Musculoskeletal Provider 05/07/22 04/10/24 Myron Mcqueen DO 1747 [place] [address] Assigned Neuroscience Provider 11/12/22 09/08/23 [place] [address] [place] [address] Pain Medicine 01/18/23 Vishal Roy MD 6545 [facility] [place] [address] Pain Medicine 03/09/23 Rebecca Taylor DO RAYUS Assigned Neuroscience Provider 09/09/23 10/20/23 Craig Ku MD 909 [facility] [id number] [place], [place] 131265 Assigned Neuroscience Provider 10/21/23 documented as of this encounter
--- OUTSIDE RECORDS SUMMARY | 2024-07-08 13:48 | XMS_ITS | Encounter Summary ---
Author Organization [place] Address [address] [place] [address] Care Team Providers Care Pcas Name Role Phone May Solo Primary Care Provider Unavailab Craig Rodriguez MD Unavailable [phone] Fracisco See MD Unavailable [phone] Brian Watkins MD Unavailable [phone] Sarah Woods MD Unavailable [phone] Aaron Arzate MD Primary Care Provider [phone] Beth Cedeno MD Unavailable [phone] Shanda Link PA-C Unavailable [phone] Fracisco See MD Unavailable [phone] Shanda Link PA-C Unavailable [phone] Myron Mcqueen DO Unavailable [phone] Rebecca Taylor DO Unavailable Fracisco See MD Unavailable [phone] Myron Mcqueen DO Unavailable [phone] Caitie Sheth MD Unavailable Vishal Roy MD Unavailable + [phone] Rebecca Taylor DO Unavailable Craig Ku MD Unavailable Reason for Referral * Diagnostic Imaging CT Scan (Routine) - Closed Specialty Diagnoses / Procedures Referred By Contac t Referred To Contact Radiology. Diagnoses Diaphragm paralysis Procedures CT Chest w contrast* Sarah Woods MD [address] [place] [address] [facility] [address] [facility] [address] [place] [address] Referral ID Status Reason Start Date Expiration Date Visits Re quested Visits Authorized [id number] Closed 09/02/2019 09/01/2020 1 1 Reason for Visit * Reason Onset Date Comments Orders 08/29/2019 CT Chest w/ Cont rast, PFTs Encounter Details Date Type Department Care Team (Late st Contact Info) Description 08/29/2019 Telephone [facility] [address] [phone] Sarah Woods MD [address] [place] [address] [phone] Orders (CT Chest w/ Contrast, PFTs) Social History Tobacco Use Types Packs/Day Years Used Date Smoking Tobacco: Never Smokeless Tobacco: Never PHQ-2 Answer Date Recorded PHQ-2 Score 0 08/27/2019 Sex and Gender Information Value Date Recorded Sex Assigned at Not on file Gender Identity Female 10/12/2020 11:38 AM BAG HANGER Sexual Orientation Not on file documented as [...] Message routed to: [facility] ([facility] [place] [place] [place] for [facility] Science * Telephone Encounter - [...] Message routed to: [facility] ([facility] [place] [place] [facility] * Telephone Encounter - Shayan Snyder [...] routed to: [facility]): [facility] documented in this encounter Plan of Treatment Upcoming Encounters Date Type Department Care Team (Late st Contact Info) Description 01/07/2025 1:30 PM BAG HANGER Office Visit [facility] 909 [place] [address] Sarah Woods MD [address] [place] [address] documented as of this encounter Results * Pulmonary Function Test (09/05/2019 2:30 PM CDT) FVC-Pred 2.97 L BREEZE PFT FVC-Pre 2.27 L BREEZE PFT FVC-%Pred-Pre 76 % BREEZE PFT FEV1-Pre 1.82 L BREEZE PFT FEV1-%Pred-Pre 78 % BREEZE PFT [id number] 78 % BREEZE PFT [id number] 80 % BREEZE PFT FEFMax-Pred 5.87 L/sec BREEZE PFT FEFMax-Pre 6.93 L/sec BREEZE PFT FEFMax-%Pred-Pr e 118 % BREEZE PFT [id number] 1.97 L/sec BREEZE PFT ORV1272-Njs 1.72 L/sec BREEZE PFT AUJ3527-%Pred-P re 87 % BREEZE PFT POZ8075-Tzdw 0.37 L/sec BREEZE PFT PMJ1893-%Pred-P ost 18 % BREEZE PFT ExpTime-Pre 7.07 sec BREEZE PFT FIFMax-Pre 4.48 L/sec BREEZE PFT FEL3VVA5-Fuvw 79 % BREEZE PFT [id number]-Pnz 80 % BREEZE PFT 09/05/2019 2:30 PM [...] Out COVID-19 09/24/2020 09/24/2020 09/25/2020 11:20 AM BAG HANGER Rule Out COVID-19 09/26/2020 09/26/2020 09/27/2020 12:59 PM BAG HANGER COVID-19 09/26/2020 09/26/202010/17/2020 11:4 1 PM BAG HANGER documented as of this encounter Care Teams Pcas Relationship Specialty Start Date End Date May Solo PCP - General 05/07/12 10/04/20 Craig Shaikh MD [address] [place] [address] PCP - Orthopaedics 07/14/20 Aaron Arzate MD 420 [facility] 276 [place], [place] 619165 PCP - General Family Medicine 10/05/20 Fracisco See MD [address] [place] [address] [address] [place], [place] 504044 Assigned Musculoskeletal Provider 09/11/20 05/01/21 Brian Watkins MD 420 [facility] 207 [place], [place] 429765 Assigned Surgical Provider 09/11/2003/27/21 Sarah Woods MD [address] [place] [address] 276 [place], [place] 137785 Assigned Pulmonology Provider 09/11/20 Beth Cedeno MD [address] [place] [address] 122645 Assigned Cancer Care Provider 12/06/20 06/03/22 Shanda Link PA-C [address] [place] [address] 992955 Assigned Musculoskeletal Provider 05/02/21 10/09/21 Fracisco See MD [address] [facility] [address] [place] [address] Assigned Musculoskeletal Provider 10/10/21 12/18/21 Shanda Link PA-C 909 [place] [address] Assigned Musculoskeletal Provider 12/19/21 05/06/22 Myron Mcqueen DO [address] [facility] [place] [address] Assigned Neuroscience Provider 03/27/22 04/02/22 Rebecca Taylor DO RAYUS Assigned Neuroscience Provider 04/03/22 11/11/22 Fracisco See MD [facility] [facility] [address] [place] [address] Assigned Musculoskeletal Provider 05/07/22 04/10/24 Myron Mcqueen DO 1747 [place] [address] Assigned Neuroscience Provider 11/12/22 09/08/23 [place] [address] [place] 425947 Pain Medicine 01/18/23 Vishal Roy MD [address] [place] [address] Pain Medicine 03/09/23 Rebecca Taylor DO RAYUS Assigned Neuroscience Provider 09/09/23 10/20/23 Craig Ku MD 9 [facility] [id number] [address] Assigned Neuroscience Provider 10/21/23 documented as of this encounter
--- OUTSIDE RECORDS SUMMARY | 2024-07-08 13:48 | XMS_ITS | Encounter Summary ---
Author Organization [place] Address [address] [place] [address] Care Team Providers Care Crester Name Role Phone Craig Shaikh MD Unavailable [phone] Fracisco See MD Unavailable [phone] Brian Watkins MD Unavailable [phone] Sarah Woods MD Unavailable [phone] Aaron Arzate MD Primary Care Provider Beth Cedeno MD Unavailable [phone] Shanda Link PA-C Unavailable [phone] Fracisco See MD Unavailable [phone] Shanda Link PA-C Unavailable [phone] Myron Mcqueen DO Unavailable [phone] Rebecca Taylor DO Unavailable Fracisco See MD Unavailable [phone] Myron Mcqueen DO Unavailable [phone] Caitie Sheth MD Unavailable Vishal Roy MD Unavailable + [phone] Rebecca Taylor DO Unavailable Craig Ku MD Unavailable [phone] Reason for Visit * Reason Onset Date Comments Call Back 11/06/2020 Low fever Encounter Details Date Type Department Care Team (Late st Contact Info) Description 11/06/2020 Telephone [facility] [address] [address] Anupam Washburn MD [facility] [place] [address] [place] [address] Call Back (Low fever) Social History Tobacco Use Types Packs/Day Years Used Date Smoking Tobacco: Never Smokeless Tobacco: Never Alcohol Use Standard Drinks/Week Comments Not Currently 0 (1 standard drink = 0.6 oz pur e alcohol) PHQ-2 Answer Date Recorded PHQ-2 Score 0 08/27/2019 Sex and Gender Information Value Date Recorded Sex Assigned at Not on file Gender Identity Female 10/12/2020 11:38 AM MACHINE TOOL MECHANIC Sexual Orientation Not on file COVID-19 Exposure Response Date Recorded In the last month, have you been in contact with someone who was confirmed or suspected to have Coronavirus / COVID-19? No / Unsure 11/06/2020 10:40 AM MACHINE TOOL MECHANIC documented as of this encounter Miscellaneous Notes [...] to COVID. Will message provider with update. INE TOOL MECHANIC * Telephone Encounter - Lenore Tamera - 11/06/2020 1:26 PM CST M [facility] Call Center Phone Message May a detailed message be left on voicemail: yes Reason for Call: Other: Pt would like a call to discuss images as well as discuss low fever she keeps getting Action Taken: Message routed to: [facility]): Pulm Travel Screening: Not Applicable INE TOOL MECHANIC documented in this encounter Plan of Treatment Upcoming Encounters Date Type Department Care Team (Late st Contact Info) Description 01/07/2025 1:30 PM MACHINE TOOL MECHANIC Office Visit [facility] [address] [phone] Sarah Woods MD 420 [facility] 276 [place], [place] [address] documented as of this encounter Visit Diagnoses Not on filedocumented in this encounter Care Teams Crester Relationship Specialty Start Date End Date Craig Shaikh MD [address] [place] [address] PCP - Orthopaedics 07/14/20 Aaron Arzate MD 420 [facility] 276 [place], [place] [address] PCP - General Family Medicine 10/05/20 Fracisco See MD [address] [place] [address] Assigned Musculoskeletal Provider 09/11/20 05/01/21 Brian Watkins MD 420 [facility] 207 [place], [place] [address] Assigned Surgical Provider 09/11/2003/27/21 Sarah Woods MD 420 [facility] 276 [place], [place] 394295 Assigned Pulmonology Provider 09/11/20 Beth Cedeno MD 9 [place] [address] Assigned Cancer Care Provider 12/06/20 06/03/22 Shanda Link PA-C [address] [place] [address] Assigned Musculoskeletal Provider 05/02/21 10/09/21 Fracisco See MD [address] [place] [address] Assigned Musculoskeletal Provider 10/10/21 12/18/21 Shanda Link PA-C [address] [place] [address] Assigned Musculoskeletal Provider 12/19/21 05/06/22 Myron Mcqueen DO 1747 [place] [address] Assigned Neuroscience Provider 03/27/22 04/02/22 Rebecca Taylor DO RAY Assigned Neuroscience Provider 04/03/22 11/11/22 Fracisco See MD [address] [place] [address] Assigned Musculoskeletal Provider 05/07/22 04/10/24 Myron Mcqueen DO 1747 [place] [address] Assigned Neuroscience Provider 11/12/22 09/08/23 [place] [address] [place], [place] 420667 Pain Medicine 01/18/23 Vishal Roy MD [address] [place] 917465 Pain Medicine 03/09/23 Rebecca Taylor DO RAYUS Assigned Neuroscience Provider 09/09/23 10/20/23 Craig Ku MD 909 [facility] [id number] [place] [address] Assigned Neuroscience Provider 10/21/23 documented as of this encounter
--- OUTSIDE RECORDS SUMMARY | 2024-07-08 13:48 | XMS_ITS | Encounter Summary ---
Author Organization [place] Address [address] [place] [address] Care Team Providers Care Supervisor Hide House Name Role Phone May Solo Primary Care Provider Unavailab Craig Rodriguez MD Unavailable [phone] Fracisco See MD Unavailable [phone] Brian Watkins MD Unavailable [phone] Sarah Woods MD Unavailable [phone] Aaron Arzate MD Primary Care Provider [phone] Beth Cedeno MD Unavailable [phone] Shanda Link PA-C Unavailable [phone] Fracisco See MD Unavailable [phone] Shanda Link PA-C Unavailable [phone] Myron Mcqueen DO Unavailable [phone] Rebecca Taylor DO Unavailable Fracisco See MD Unavailable [phone] Myron Mcqueen DO Unavailable [phone] Caitie Sheth MD Unavailable Vishal Roy MD Unavailable + [phone] Rebecca Taylor DO Unavailable Craig Ku MD Unavailable Reason for Referral * Diagnostic Imaging CT Scan (Routine) - Closed Specialty Diagnoses / Procedures Referred By Contac t Referred To Contact Radiology. Diagnoses Lung nodule Procedures CT Chest w/o Contrast Sarah Woods MD [address] [place] [address] Scan [facility] [address] [facility] [address] [place] [address] Referral ID Status Reason Start Date Expiration Date Visits Re quested Visits Authorized [id number] Closed 09/19/2019 09/18/2020 1 1 Reason for Visit * Reason Onset Date Comments Call Back 09/19/2019 Encounter Details Date Type Department Care Team (Late st Contact Info) Description 09/19/2019 Telephone [facility] [address] [phone] Sarah Woods MD [address] [place] [address] Call Back Social History Tobacco Use Types Packs/Day Years Used Date Smoking Tobacco: Never Smokeless Tobacco: Never PHQ-2 Answer Date Recorded PHQ-2 Score 0 08/27/2019 Sex and Gender Information Value Date Recorded Sex Assigned at Not on file Gender Identity Female 10/12/2020 11:38 AM FIELD HOCKEY AND LACROSSE COACH Sexual Orientation Not on file documented as [...] - 09/19/2019 2:15 PM CDT [facility] Call Center Phone Message May a [...] st Contact Info) Description 01/07/2025 1:30 PM FIELD HOCKEY AND LACROSSE COACH Office Visit [facility] [address] [place] [address] Sarah Woods MD [address] [place] [address] 762125 documented as of this encounter Results * CT Chest w/o Contrast (10/23/2019 9:35 AM FIELD HOCKEY AND LACROSSE COACH) Anatomical Region Laterality Modality Chest, SUBRAD CT BODY, UMP CT CHEST, RAD CT Computed Tomography Impressions 10/23/2019 1:33 PM FIELD HOCKEY AND LACROSSE COACH IMPRESSION: Stable pulmonary nodules. Recommendations for an [...] ADARSH HERRERA MD Narrative 10/23/2019 1:33 PM FIELD HOCKEY AND LACROSSE COACH CT CHEST WITHOUT CONTRAST October 23, 2019 [...] Out COVID-19 09/24/2020 09/24/2020 09/25/2020 11:20 AM FIELD HOCKEY AND LACROSSE COACH Rule Out COVID-19 09/26/2020 09/26/2020 09/27/2020 12:59 PM FIELD HOCKEY AND LACROSSE COACH COVID-19 09/26/2020 09/26/2020 10/17/2020 11:4 1 PM FIELD HOCKEY AND LACROSSE COACH documented as of this encounter Care Teams Supervisor Hide House Relationship Specialty Start Date End Date May Solo PCP - General 05/07/12 10/04/20 Craig Shaikh MD [address] [address] PCP - Orthopaedics 07/14/20 Aaron Arzate MD [address] [address] PCP - General Family Medicine 10/05/20 Fracisco See MD [address] [address] Assigned Musculoskeletal Provider 09/11/20 05/01/21 Brian Watkins MD 420 [facility] 207 [place], [place] 091305 Assigned Surgical Provider 09/11/2003/27/21 Sarah Woods MD 420 [facility] 276 [place], [place] 565045 Assigned Pulmonology Provider 09/11/20 Beth Cedeno MD [address] [place] [address] 023195 Assigned Cancer Care Provider 12/06/20 06/03/22 Shanda Link PA-C [address] [place] [address] Assigned Musculoskeletal Provider 05/02/21 10/09/21 Fracisco See MD [address] [address] Assigned Musculoskeletal Provider 10/10/21 12/18/21 Shanda Link PA-C [address] [place] [address] [id number] Assigned Musculoskeletal Provider 12/19/21 05/06/22 Myron Mcqueen DO [address] [place] [address] [id number] Assigned Neuroscience Provider 03/27/22 04/02/22 Rebecca Taylor DO RAYUS Assigned Neuroscience Provider 04/03/22 11/11/22 Fracisco See MD [facility] [address] [place], [place] 456914 Assigned Musculoskeletal Provider 05/07/22 04/10/24 Myron Mcqueen DO [address] [place] [place] [id number] Assigned Neuroscience Provider 11/12/22 09/08/23 [place] [address] [place], [place] 447[address] Pain Medicine 01/18/23 Vishal Roy MD [address] [place] 875555 Pain Medicine 03/09/23 Rebecca Taylor DO RAYUS Assigned Neuroscience Provider 09/09/23 10/20/23 Craig Ku MD [address]09 [facility] [id number] [place], [place] 910525 Assigned Neuroscience Provider 10/21/23 documented as of this encounter
--- OUTSIDE RECORDS SUMMARY | 2024-07-08 13:48 | XMS_ITS | Encounter Summary ---
Author Organization [place] Address [address] [place] [address] Care Team Providers Care Breakdown Worker Name Role Phone May Solo Primary Care Provider Unavailab Craig Rodriguez MD Unavailable [phone] Fracisco See MD Unavailable [phone] Brian Watkins MD Unavailable [phone] Sarah Woods MD Unavailable [phone] Aaron Arzate MD Primary Care Provider [phone] Beth Cedeno MD Unavailable [phone] Shanda Link PA-C Unavailable [phone] Fracisco See MD Unavailable [phone] Shanda Link PA-C Unavailable [phone] Myron Mcqueen DO Unavailable [phone] Rebecca Taylor DO Unavailable Fracisco See MD Unavailable [phone] Myron Mcqueen DO Unavailable [phone] Caitie Sheth MD Unavailable Vishal Roy MD Unavailable + [phone] Rebecca Taylor DO Unavailable Craig Ku MD Unavailable [phone] Encounter Details Date Type Department Care Team (Late st Contact Info) Description 11/15/2019 MyC Medical Advice [facility] [address] [phone] Sarah Woods MD [address] [place] [address] 100395 Social History Tobacco Use Types Packs/Day Years Used Date Smoking Tobacco: Never Smokeless Tobacco: Never PHQ-2 Answer Date Recorded PHQ-2 Score 0 08/27/2019 Sex and Gender Information Value Date Recorded Sex Assigned at Not on file Gender Identity Female 10/12/2020 11:38 AM OSTEOPATHY DOCTOR Sexual Orientation Not on file documented as of this encounter Miscellaneous Notes * Telephone Encounter - Jocelyn Avila - 11/18/2019 8:47 AM CST Spoke with pt and she stated she had the Holter Monitor done at [facility]. Provided their number to call to get results. OPATHY DOCTOR documented in this encounter Plan of Treatment Upcoming Encounters Date Type Department Care Team (Late st Contact Info) Description 01/07/2025 1:30 PM OSTEOPATHY DOCTOR Office Visit [facility] [address] [phone] Sarah Woods MD [address] [place] [address] [phone] documented as of this encounter Visit Diagnoses Not on filedocumented in this encounter Additional Health Concerns Infection Onset Date Last Indicated Resolved Time Rule Out COVID-19 09/24/2020 09/24/2020 09/25/2020 11:20 AM OSTEOPATHY DOCTOR Rule Out COVID-19 09/26/2020 09/26/2020 09/27/2020 12:59 PM OSTEOPATHY DOCTOR COVID-19 09/26/2020 09/26/2020 10/17/2020 11:4 1 PM OSTEOPATHY DOCTOR documented as of this encounter Care Teams Breakdown Worker Relationship Specialty Start Date End Date May Solo PCP - General 05/07/12 10/04/20 Craig Shaikh MD [address] [place] [address] [place] [address] PCP - Orthopaedics 07/14/20 Aaron Arzate MD [address] [place] [address] 724475 PCP - General Family Medicine 10/05/20 Fracisco See MD [address] [place] [address] [id number] Assigned Musculoskeletal Provider 09/11/20 05/01/21 Brian Watkins MD [address] [place] [address] 773825 Assigned Surgical Provider 09/11/2003/27/21 Sarah Woods MD [address] [place] [address] 302345 Assigned Pulmonology Provider 09/11/20 Beth Cedeno MD [address] [place] [address] 499835 Assigned Cancer Care Provider 12/06/20 06/03/22 Shanda Link PA-C [address] [place] [address] Assigned Musculoskeletal Provider 05/02/21 10/09/[address] [facility] [address] [phone] Assigned Musculoskeletal Provider 10/10/21 12/18/21 Shanda Link PA-C 909 [place] [address] Assigned Musculoskeletal Provider 12/19/21 05/06/22 Myron Mcqueen DO 1747 [facility] [place] [place] [address] Assigned Neuroscience Provider 03/27/22 04/02/22 Rebecca Taylor DO RAYUS Assigned Neuroscience Provider 04/03/22 11/11/22 Fracisco See MD [address] [place] [address] Assigned Musculoskeletal Provider 05/07/22 04/10/24 Myron Mcqueen DO 1747 [place] [address] Assigned Neuroscience Provider 11/12/22 09/08/23 [place] [address] [place] [address] Pain Medicine 01/18/23 Vishal Roy MD [address] 168945 Pain Medicine 03/09/23 Rebecca Taylor DO RAYUS Assigned Neuroscience Provider 09/09/23 10/20/23 Craig Ku MD 909 [facility] [id number] [place] [address] Assigned Neuroscience Provider 10/21/23 documented as of this encounter
--- OUTSIDE RECORDS SUMMARY | 2024-07-08 13:48 | XMS_ITS | Encounter Summary ---
Author Organization [place] Address [address] [place] [address]. [place] [address] Care Team Providers Care Hoop Punch And Coiler Operator Name Role Phone Craig Shaikh MD Unavailable [phone] Sarah Woods MD Unavailable [phone] Aaron Arzate MD Primary Care Provider [phone] Beth Cedeno MD Unavailable [phone] Shanda Link PA-C Unavailable [phone] Myron Mcqueen DO Unavailable [phone] Rebecca Taylor DO Unavailable Fracisco See MD Unavailable Myron Mcqueen DO Unavailable [phone] Caitie Sheth MD Unavailable Vishal Roy MD Unavailable + [phone] Rebecca Taylor DO Unavailable Craig Ku MD Unavailable Encounter Details Date Type Department Care Team (Late st Contact Info) Description 03/25/2022 [facility] Spine and Neurosurgery [address] [place] [phone] Rebecca Taylor DO RAY Social History Tobacco Use Types Packs/Day Years Used Date Smoking Tobacco: Never Smokeless Tobacco: Never Alcohol Use Standard Drinks/Week Comments Not Currently 0 (1 standard drink = 0.6 oz pur e alcohol) PHQ-2 Answer Date Recorded PHQ-2 Score 0 12/18/2020 Sex and Gender Information Value Date Recorded Sex Assigned at Not on file Gender Identity Female 10/12/2020 11:38 AM LOCOMOTIVE ELECTRICIAN Sexual Orientation Not on file COVID-19 Exposure Response Date Recorded In the last 10 days, have yo u been in contact with someone who was confirmed or suspected to have Coronavirus/COVID-19? No / Unsure 03/24/2022 10:40 AM CDT documented as of this encounter Plan of Treatment Upcoming Encounters Date Type Department Care Team (Late st Contact Info) Description 01/07/2025 1:30 PM LOCOMOTIVE ELECTRICIAN Office Visit [facility] Lung Science and [address] [phone] Sarah Woods MD [address] [place] [address] 626235 documented as of this encounter Procedures Procedure Name Priority Date/Time Associated Diagnosis Comments EMG - HIM SCAN Routine 03/24/2022 documented in this encounter Results * EMG - HIM Scan (03/24/2022) Rebecca Taylor DO IP NEUR OLOGY ORDERABLES documented in this encounter Visit Diagnoses Not on filedocumented in this encounter Care Teams Hoop Punch And Coiler Operator Relationship Specialty Start Date End Date Craig Shaikh MD [address] [address] PCP - Orthopaedics 07/14/20 Aaron Arzate MD [address] [place] [address] 714505 PCP - General Family Medicine 10/05/20 Sarah Woods MD [address] [place] [address] 276 [place] [address] Assigned Pulmonology Provider 09/11/20 Beth Cedeno MD 909 [place] [address] Assigned Cancer Care Provider 12/06/20 06/03/22 Shanda Link PARubénC 9 [place] [address] Assigned Musculoskeletal Provider 12/19/21 05/06/22 Myron Mcqueen DO 1747 [place], [place] [phone] Assigned Neuroscience Provider 03/27/22 04/02/22 Rebecca Taylor DO RAYUS Assigned Neuroscience Provider 04/03/22 11/11/22 Fracisco See MD [address] [place] [address] 016274 Assigned Musculoskeletal Provider 05/07/22 04/10/24 Myron Mcqueen DO 1747 [place] [address] Assigned Neuroscience Provider 11/12/22 09/08/23 [place] [address] [facility] [place] 8[address] Pain Medicine 01/18/23 Vishal Roy MD 6545 [facility] [place] [address] Pain Medicine 03/09/23 Rebecca Taylor DO LINUS Assigned Neuroscience Provider 09/09/23 10/20/23 Craig Ku MD 9 [facility] [id number] [place] [address] Assigned Neuroscience Provider 10/21/23 documented as of this encounter
--- OUTSIDE RECORDS SUMMARY | 2024-07-08 13:48 | XMS_ITS | Encounter Summary ---
Author Organization [place] Address [address] [place] [address]. [place] [address] Care Team Providers Care Mine Laborer Name Role Phone Craig Shaikh MD Unavailable [phone] Sarah Woods MD Unavailable [phone] Aaron Arzate MD Primary Care Provider [phone] Fracisco See MD Unavailable [phone] Myron Mcqueen DO Unavailable [phone] Caitie Sheth MD Unavailable Vishal Roy MD Unavailable + [phone] Rebecca Taylor DO Unavailable Craig Ku MD Unavailable [phone] Reason for Visit * Reason Onset Date Comments Call Back 06/07/2023 Encounter Details Date Type Department Care Team (Late st Contact Info) Description 06/07/2023 Telephone [facility] [address] [place] [address] Sarah Woods MD 420 [facility] 276 [place] [address] Call Back Social History Tobacco Use Types Packs/Day Years Used Date Smoking Tobacco: Never Smokeless Tobacco: Never Alcohol Use Standard Drinks/Week Comments Not Currently 0 (1 standard drink = 0.6 oz pur e alcohol) PHQ-2 Answer Date Recorded PHQ-2 Score 0 03/01/2023 Sex and Gender Information Value Date Recorded Sex Assigned at Not on file Gender Identity Female 10/12/2020 11:38 AM ANIMAL COP Sexual Orientation Not on file documented as of this encounter Miscellaneous Notes * Telephone Encounter - Marsha Mckeon - 06/07/2023 2:41 PM CDT M [facility] Call Center Phone Message May [...] st Contact Info) Description 01/07/2025 1:30 PM ANIMAL COP Office Visit [facility] [address] [phone] Sarah Woods MD [address] 318875 documented as of this encounter Visit Diagnoses Not on filedocumented in this encounter Care Teams Mine Laborer Relationship Specialty Start Date End Date Craig Shaikh MD [address] [place] [address] PCP - Orthopaedics 07/14/20 Aaron Arzate MD [address] 205765 PCP - General Family Medicine 10/05/20 Sarah Woods MD [address] [id number] Assigned Pulmonology Provider 09/11/20 Fracisco See MD [address] [facility] [address] [place], [place] 192604 Assigned Musculoskeletal Provider 05/07/22 04/10/24 Myron Mcqueen DO [address] [place] [address] Assigned Neuroscience Provider 11/12/22 09/08/23 [place] [address] [facility] [place] [address] Pain Medicine 01/18/23 Vishal Roy MD [address] [place] [place] [address] Pain Medicine 03/09/23 Rebecca Taylor DO RAYUS Assigned Neuroscience Provider 09/09/23 10/20/23 Craig Ku MD 909 [facility] SE - [id number] [place], [place] 012765 Assigned Neuroscience Provider 10/21/23 documented as of this encounter
--- OUTSIDE RECORDS SUMMARY | 2024-07-08 13:48 | XMS_ITS | Clinical Summary ---
Author Organization [employer] Address [place], [place] [address] Care Team Providers Care Process Consultant Name Role Phone Waldemar Arzate MD Primary [...] Comments LIPID PANEL Today 12/30/2019 10:30 AM PAPER INSPECTOR Shortness of breath Hyperlipidemia, unspecified hyperlipidemia type from Last 3 Months or Most Recently Relevant to Health Maintenance Results * LIPID PANEL (12/30/2019 10:30 AM PAPER INSPECTOR) [facility] CHOLESTEROL,TOTAL 152 100 - 199 mg/dL 12/30/2019 11:30 AM PAPER INSPECTOR [facility] TRIGLYCERIDES 46 <150 mg/dL 12/30/2019 11:30 AM PAPER INSPECTOR [facility] HDL CHOLESTEROL 67 >40 mg/dL 0 11:30 AM PAPER INSPECTOR [facility] NON-HDL CHOLESTEROL 85 <145 mg/dl 12/30/2019 11:30 AM PAPER INSPECTOR [facility] CHOL/HDL RATIO 2.27 <4.50 12/30/2019 11:30 AM PAPER INSPECTOR [facility] LDL CHOLESTEROL 76 <=130 mg/dL 12/30/2019 11:30 AM PAPER INSPECTOR [facility] PROVIDER ORDERED STATUS RANDOM 12/30/2019 11:30 AM [facility] Blood BLOOD SPECIMEN / Unknown Venipuncture / Unknown 12/30/2019 10:30 AM PAPER INSPECTOR 12/30/2019 10:38 AM PAPER INSPECTOR Alonso Ibanez MD [facility] [address] [place] [address] from Last 3 Months or Most Recently Relevant to Health Maintenance Care Teams Process Consultant Relationship Specialty Start Date End Date Waldemar Arzate MD PCP - General Family Practice 04/28/21
--- OUTSIDE RECORDS SUMMARY | 2024-07-08 13:48 | XMS_ITS | Encounter Summary ---
Author Organization [place] Address [address] [place] [address] Care Team Providers Care Investment Fund Manager Name Role Phone Craig Shaikh MD Unavailable [phone] Fracisco See MD Unavailable [phone] Brian Watkins MD Unavailable [phone] Sarah Woods MD Unavailable [phone] Aaron Arzate MD Primary Care Provider [phone] Beth Cedeno MD Unavailable [phone] Shanda Link PA-C Unavailable [phone] Fracisco See MD Unavailable [phone] Shanda Link PA-C Unavailable [phone] Myron Mcqueen DO Unavailable [phone] Rebecca Taylor DO Unavailable Fracisco See MD Unavailable [phone] Myron Mcqueen DO Unavailable [phone] Caitie Sheth MD Unavailable Vishal Roy MD Unavailable + [phone] Rebecca Taylor DO Unavailable Carig Ku MD Unavailable [phone] Encounter Details Date Type Department Care Team (Late Contact Info) Description 12/29/[address] [facility] Orthopedic Clinic [address] 4th [place] [address] Shanda Link PARubénC [address] [place] [address] 596015 Social History Tobacco Use Types Packs/Day Years Used Date Smoking Tobacco: Never Smokeless Tobacco: Never Alcohol Use Standard Drinks/Week Comments Not Currently 0 (1 standard drink = 0.6 oz pur e alcohol) PHQ-2 Answer Date Recorded PHQ-2 Score 0 12/18/2020 Sex and Gender Information Value Date Recorded Sex Assigned at Not on file Gender Identity Female 10/12/2020 11:38 AM LARD MIXER Sexual Orientation Not on file COVID-19 Exposure Response Date Recorded In the last month, have you been in contact with someone who was confirmed or suspected to have Coronavirus / COVID-19? No / Unsure 12/17/2020 10:31 AM LARD MIXER documented as of this encounter Plan of Treatment Upcoming Encounters Date Type Department Care Team (Late Contact Info) Description 01/07/2025 1:30 PM LARD MIXER Office Visit [facility] Clinic [address] [phone] Sarah Woods MD [address] [place] [address] 374635 documented as of this encounter Visit Diagnoses Not on filedocumented in this encounter Care Teams Investment Fund Manager Relationship Specialty Start Date End Date Craig Shaikh MD [address] [place] [address] PCP - Orthopaedics 07/14/20 Aaron Arzate MD [address] [place] [address] 749945 PCP - General Family Medicine 10/05/20 [place] [address] [address] Assigned Musculoskeletal Provider 09/11/20 05/01/21 Brian Watkins MD 420 [facility] 207 [place], [place] 035635 Assigned Surgical Provider 09/11/2003/27/21 Sarah Woods MD 420 [facility] 276 [place], [place] 372345 Assigned Pulmonology Provider 09/11/20 Beth Cedeno MD 9 [place], [place] 587735 Assigned Cancer Care Provider 12/06/20 06/03/22 Shanda Link PARubénC [address] [place] [address] Assigned Musculoskeletal Provider 05/02/21 10/09/21 [place] [address] [address] Assigned Musculoskeletal Provider 10/10/21 12/18/21 Shanda Link PAAlicia [address] [place] [address] Assigned Musculoskeletal Provider 12/19/21 05/06/22 Myron Mcqueen DO [address] [place] [address] Assigned Neuroscience Provider 03/27/22 04/02/22 Rebecca Taylor, RAYUS Assigned Neuroscience Provider 04/03/22 11/11/22 Fracisco See MD [facility]2 [address] [place], [place] 47[address] Assigned Musculoskeletal Provider 05/07/22 04/10/24 Myron Mcqueen DO [address] [facility] [facility] [place] [place] [address] Assigned Neuroscience Provider 11/12/22 09/08/23 [place] [address] [place], [place] 646617 Pain Medicine 01/18/23 Vishal Roy MD 6545 [facility] [place] 083615 Pain Medicine 03/09/23 Rebecca Taylor DO RAYUS Assigned Neuroscience Provider 09/09/23 10/20/23 Craig Ku MD 909 [facility] SE - [id number] [place] [address] Assigned Neuroscience Provider 10/21/23 documented as of this encounter
--- NOTE | 2024-07-08 14:00 | CRLHL7_ITS ---
For Patients: As a result of the Century Cures Act, medical imaging exams and procedure reports are released immediately into your electronic medical record. You may view this report before your referring provider. If you have questions, please contact your health care provider. BILATERAL SCREENING MAMMOGRAM WITH COMPUTER-AIDED DETECTION AND TOMOSYNTHESIS TECHNIQUE: CC and MLO views were obtained. These mammographic images have been obtained using full-field digital technique. These mammographic images were interpreted with the benefit of computer-aided detection. Breast Tomosynthesis was used in this interpretation. COMPARISON FILM: 06/07/21, 07/18/19, 01/16/18. FINDINGS: There are scattered areas of fibroglandular density. IMPRESSION: There is no radiographic evidence for malignancy. ASSESSMENT: BI-RADS Category 1: Negative RECOMMENDATION: Routine screening mammogram in 1 year. A lay language report of this examination will be provided to the patient. Fracisco Cid M.D. Diagnostic Radiologist [email or web address] SP/Dictated by: Fracisco Cid MD @ 07/09/2024 8:39:00 AM (Electronically Signed)
== END 2024-07-08 13:45 | disposition home or self-care (01) ==
LOC: MAMMO 13:45
PROVIDERS: PCP Family Medicine; Visit Provider Family Medicine
DX: Z12.31 Encounter for screening mammogram for malignant neoplasm of breast (principal)
CPT/HCPCS: 77063; 77067

== ENCOUNTER 2025-01-10 11:11 | Outpatient (CLI) | payer MEDICARE, SELFPAY ==
--- NOTE | 2025-01-10 11:15 | CRLHL7_ITS ---
For Patients: As a result of the Century Cures Act, medical imaging exams and procedure reports are released immediately into your electronic medical record. You may view this report before your referring provider. If you have questions, please contact your health care provider. INDICATION: other specified conditions COMPARISON: 03/21/2022 ultrasound, outside MRI not available TECHNIQUE: 2D woods scale and color Doppler images were acquired of the pelvis using a transabdominal and transvaginal approach. FINDINGS: Sonographic images demonstrate a normal size and smooth outer contour of the uterus. Uterus measures 5.6 cm in length by 3.0 cm in AP diameter by 5.1 cm in transverse dimension. The myometrium has a heterogeneous echotexture with multiple calcifications. The endometrial lining measures 2.3 mm in composite thickness. Small cyst within the endometrium is present measuring 5 by 4 millimeters. The right ovary is not visualized and the left ovary measures 3.2 x 2.8 x 3.3 cm. The left ovary demonstrates normal arterial and venous blood flow on color Doppler analysis. There are no suspicious fluid collections within the cul-de-sac. Simple circumscribed left ovarian cyst is present measuring 2.9 x 2.8 x 2.8 cm. No internal blood flow or solid nodular component. IMPRESSION: Multiple uterine calcifications without fibroid. Endometrial thickness 2.3 millimeters. Simple left ovarian cyst measures 2.9 cm. Dictated by Fracisco Cid MD @ 01/13/2025 7:05:09 AM (Electronically Signed)
== END 2025-01-10 11:12 | disposition home or self-care (01) ==
PROVIDERS: PCP Family Medicine; Visit Provider Family Medicine
DX: N94.89 Other specified conditions associated with female genital organs and menstrual cycle (principal); N85.8 Other specified noninflammatory disorders of uterus; R93.89 Abnormal findings on diagnostic imaging of other specified body structures
CPT/HCPCS: 76830; 76856

== ENCOUNTER 2025-03-17 14:42 | Outpatient (CLI) | payer MEDICARE, SELFPAY | END 2025-03-17 14:43 | disposition home or self-care (01) | LOC: FRMREF 14:42 | PROVIDERS: PCP Family Medicine; Visit Provider Family Medicine | DX: I10 Essential (primary) hypertension (principal); E78.5 Hyperlipidemia, unspecified; R60.0 Localized edema; G03.9 Meningitis, unspecified; F32.A Depression, unspecified | CPT/HCPCS: 80053; 80061; 82043; 82570; 83880 ==